=== PATIENT | female | born 1965 | race Caucasian/White ===

== ENCOUNTER 2020-04-07 13:32 | Outpatient (REF) | payer OTHER, SELFPAY ==
--- NOTE | 2020-04-07 13:36 | MM_ITS ---
EXAMINATION: MM SCREENING DIGITAL BREAST TOMOSYNTHESIS, BILATERAL CLINICAL INFORMATION: Screening. Asymptomatic. The lifetime risk of breast cancer based on the Tyrer-Cuzick Model is 8%. COMPARISON: Mammography: April 03, 2019 and studies dating back to July 23, 2014 TECHNIQUE: Digital breast tomosynthesis is performed in both the craniocaudal and mediolateral oblique views along with computer-aided detection (CAD). Synthesized 2D images are generated from the tomosynthesis. FINDINGS: There are scattered areas of fibroglandular density (ACR BI-RADS breast composition Category b). There are no significant masses, abnormal calcifications, or other abnormalities. MM/MM tomosynthesis screening BI IMPRESSION: There are no significant changes from prior study. ASSESSMENT: BI-RADS 1: Negative RECOMMENDATION: Routine annual mammography screening. This patient's information was entered into a reminder system with a target due date for their next mammogram.
== END 2020-04-07 13:33 | disposition home or self-care (01) ==
LOC: HO.MAMMO 13:32
PROVIDERS: PCP Internal Medicine; Visit Provider Internal Medicine
DX: Z12.31 Encounter for screening mammogram for malignant neoplasm of breast (principal)
CPT/HCPCS: 77063; 77067

== ENCOUNTER 2020-05-28 10:41 | Outpatient (REF) | payer OTHER, SELFPAY | END 2020-05-28 10:42 | disposition home or self-care (01) | LOC: HO.HMGCLDS 10:41 | PROVIDERS: PCP Internal Medicine; Visit Provider Internal Medicine | DX: Z20.828 Contact with and (suspected) exposure to other viral communicable diseases (principal) | CPT/HCPCS: C9803; U0003 ==

== ENCOUNTER 2020-07-20 13:51 | Outpatient (REF) | payer OTHER, SELFPAY ==
--- NOTE | 2020-07-20 13:55 | XR_ITS ---
EXAMINATION: XR CHEST CLINICAL INFORMATION: Emphysema COMPARISON: None TECHNIQUE: 2 views of the chest were obtained. FINDINGS: Normal cardiac and mediastinal silhouette. There is mild bronchial wall thickening in bilateral lower lungs. No focal dense consolidation. No effusion, edema or pneumothorax. Multilevel degenerative changes in the spine. XR/XR chest 2V IMPRESSION: Bronchial wall thickening can be seen with a small airway process such as asthma or atypical/viral infections. No confluent consolidation.
== END 2020-07-20 13:52 | disposition home or self-care (01) ==
LOC: HO.HMGCX 13:51
PROVIDERS: PCP Internal Medicine; Visit Provider Internal Medicine
DX: J43.9 Emphysema, unspecified (principal); Z20.822 Contact with and (suspected) exposure to COVID-19
CPT/HCPCS: 36415; 71046; U0003; U0005

== ENCOUNTER → 2020-08-06 14:49 | Outpatient (BNVA) | payer OTHER, SELFPAY | PROVIDERS: PCP Internal Medicine; Visit Provider Nurse Practitioner | DX: K58.2 Mixed irritable bowel syndrome (principal); K21.9 Gastro-esophageal reflux disease without esophagitis; D12.6 Benign neoplasm of colon, unspecified | CPT/HCPCS: Q3014 ==

== ENCOUNTER → 2021-02-01 13:08 | Outpatient (BNVA) | payer OTHER, SELFPAY | PROVIDERS: PCP Internal Medicine; Visit Provider Nurse Practitioner | CPT/HCPCS: Q3014 ==

== ENCOUNTER 2021-02-16 08:16 | Outpatient (REF) | payer OTHER, SELFPAY ==
[2021-02-16 11:22] LABS: MANUAL DIFF FLAG NO
[2021-02-16 11:37] LABS: Appearance Urine CLOUDY; Color Urine YELLOW; Glucose Urine UA NEG (NEG); Leukocyte Esterase Urine NEG (NEG); Nitrite Urine NEG (NEG); PH 5.5 (5.0-8.0); Specific Gravity - Urine >= 1.030 (1.005-1.025); UACC Culture Trigger NO; Urine Blood 1+ (NEG); Urine Ketones NEG (NEG); Urine Protein 1+ MG/DL (NEG-TRACE)
[2021-02-16 11:38] LABS: Basophils Percent Auto 0.2 % (0-2); Eosinophils Absolute Auto 0.2 X10*3/uL (0.0-0.4); Eosinophils Percent Auto 2.5 % (0-4); Hematocrit 41.6 % (37-47); Hemoglobin 13.6 g/dl (12.0-16.0); Imm Gran Abs Auto 0.03 X10*3/uL (0.00-0.03); Imm Gran Pct Auto 0.4 % (0.0-0.4); Lymphocytes Percent Auto 37.7 % (20-40); Mean Corpuscular HGB Conc 32.7 g/dl (31.0-35.0); Mean Corpuscular Hemoglobin 31.7 pg (27.0-33.0); Mean Platelet Volume 9.5 fL (9.4-12.3); Monocytes Absolute Auto 0.6 X10*3/uL (0.1-1.2); Monocytes Percent Auto 7.4 % (2-11); Neutrophils Absolute Auto 4.2 X10*3/uL (2.0-8.3); Neutrophils Percent Auto 51.8 % (45-73); Platelet Count 249 X10*3/uL (160-400); Red Blood Count 4.29 X10*6/uL (4.20-5.50); Red Cell Distribution Width 13.5 % (11.0-16.0)
[2021-02-16 11:47] LABS: Alanine Aminotransferase 41 U/L (0-31); Albumin Level 4.4 g/dL (3.5-5.0); Alkaline Phosphatase 96 U/L (39-117); Anion Gap 10 (12-20); Aspartate Amino Transferase 37 U/L (5-31); Bilirubin Total 0.4 mg/dL (0.0-1.0); Blood Urea Nitrogen 13 mg/dL (9-16); Calcium 9.4 mg/dL (8.4-10.2); Carbon Dioxide 30 mmol/L (22-29); Chloride 101 mmol/L (96-108); Cholesterol 175 mg/dL; Estimated Glomerular Filt Rate > 60; Glucose Fasting 111 mg/dL (60-99); HDL Cholesterol 59 mg/dL; LDL Cholesterol Calculated 65 mg/dl; Potassium 4.4 mmol/L (3.3-5.1); Sodium 137 mmol/L (135-145); Total Protein 7.2 g/dL (6.5-8.0); Triglycerides 256 mg/dL
[2021-02-16 11:59] LABS: Microalbum/Creatinine Ratio Ur 92.5 ug/mg cr
[2021-02-16 12:04] LABS: Amorphous Sediment Urine 3+ /LPF; Bacteria Urine 1+ /LPF; Calcium Oxalate Crystals Urine 2+ /LPF; Squamous Epithelial Cell Urine 2+ /LPF; WBC Urine 0-2 /HPF (0-4)
[2021-02-16 12:07] LABS: TSH reflex Free T4 3.92 uIU/mL (0.32-4.0); Vitamin D 25-OH Total 41.9 ng/mL (>30)
== END 2021-02-16 08:17 | disposition home or self-care (01) ==
LOC: HO.HMGCLDS 08:16
PROVIDERS: PCP Internal Medicine; Visit Provider Internal Medicine
DX: F17.200 Nicotine dependence, unspecified, uncomplicated (principal); H34.8110 Central retinal vein occlusion, right eye, with macular edema; J43.9 Emphysema, unspecified; K21.9 Gastro-esophageal reflux disease without esophagitis; K59.00 Constipation, unspecified; E78.00 Pure hypercholesterolemia, unspecified; E11.9 Type 2 diabetes mellitus without complications; E55.9 Vitamin D deficiency, unspecified
CPT/HCPCS: 36415; 80053; 80061; 81001; 82043; 82306; 84443; 85025

== ENCOUNTER 2021-03-23 12:43 | Outpatient (REF) | payer OTHER, SELFPAY | END 2021-03-23 12:44 | disposition home or self-care (01) | LOC: HO.HMGCLDS 12:43 | PROVIDERS: PCP Internal Medicine; Visit Provider Internal Medicine | DX: Z20.822 Contact with and (suspected) exposure to COVID-19 (principal) | CPT/HCPCS: C9803; U0003; U0005 ==

== ENCOUNTER 2021-06-13 10:39 | Outpatient (REF) | payer OTHER, SELFPAY ==
--- NOTE | ~2021-06-13 | XR_ITS ---
EXAMINATION: XR BILATERAL KNEE SERIES CLINICAL INFORMATION: Bilateral primary osteoarthritis of the knee. COMPARISON: X-rays of the right and left knee April 2015 and March 2015 TECHNIQUE: 4 views of the right knee in the left knee including weight-bearing views FINDINGS: RIGHT KNEE: Medial compartment: Marginal osteophytes without joint space narrowing indicative of mild osteoarthritis unchanged. Lateral compartment: Unremarkable. Patellofemoral compartment: Tiny marginal osteophytes. No definite joint space narrowing. No effusion. LEFT KNEE: Medial compartment: Marginal osteophytes without joint space narrowing unchanged indicative of at least mild osteoarthritis. Lateral compartment: Marginal osteophytes without joint space narrowing indicative of at least [id number]-[id number] osteoarthritis. This is unchanged. Patellofemoral compartment: Marginal osteophytes without joint space narrowing indicative of at least mild osteoarthritis. Small joint effusion. XR/XR knee LT 4V IMPRESSION: Right knee: Osteoarthritis unchanged compared with x-rays in 2015. Left knee: Osteoarthritis with degenerative changes unchanged compared with 2015 x-rays.
--- NOTE | ~2021-06-13 | XR_ITS ---
EXAMINATION: XR BILATERAL KNEE SERIES CLINICAL INFORMATION: Bilateral primary osteoarthritis of the knee. COMPARISON: X-rays of the right and left knee April 2015 and March 2015 TECHNIQUE: 4 views of the right knee in the left knee including weight-bearing views FINDINGS: RIGHT KNEE: Medial compartment: Marginal osteophytes without joint space narrowing indicative of mild osteoarthritis unchanged. Lateral compartment: Unremarkable. Patellofemoral compartment: Tiny marginal osteophytes. No definite joint space narrowing. No effusion. LEFT KNEE: Medial compartment: Marginal osteophytes without joint space narrowing unchanged indicative of at least mild osteoarthritis. Lateral compartment: Marginal osteophytes without joint space narrowing indicative of at least tgzr-[id number]-[id number] osteoarthritis. This is unchanged. Patellofemoral compartment: Marginal osteophytes without joint space narrowing indicative of at least mild osteoarthritis. Small joint effusion. XR/XR knee RT 4V IMPRESSION: Right knee: Osteoarthritis unchanged compared with x-rays in 2015. Left knee: Osteoarthritis with degenerative changes unchanged compared with 2015 x-rays.
[2021-06-13 11:35] LABS: MANUAL DIFF FLAG NO
[2021-06-13 11:38] LABS: Basophils Percent Auto 0.3 % (0-2); Eosinophils Absolute Auto 0.1 X10*3/uL (0.0-0.4); Eosinophils Percent Auto 1.5 % (0-4); Hematocrit 41.1 % (37.0-47.0); Hemoglobin 13.6 g/dl (12.0-16.0); Imm Gran Abs Auto 0.06 X10*3/uL (0.00-0.03); Lymphocytes Absolute Auto 2.2 X10*3/uL (1.2-4.9); Lymphocytes Percent Auto 37.2 % (20-40); Mean Corpuscular HGB Conc 33.1 g/dl (31.0-35.0); Mean Corpuscular Hemoglobin 31.6 pg (27.0-33.0); Mean Corpuscular Volume 95.4 fL (80.0-98.0); Mean Platelet Volume 9.3 fL (9.4-12.3); Monocytes Absolute Auto 0.5 X10*3/uL (0.1-1.2); Monocytes Percent Auto 8.8 % (2-11); Neutrophils Percent Auto 51.2 % (45-73); Platelet Count 259 X10*3/uL (160-400); Red Blood Count 4.31 X10*6/uL (4.20-5.50); Red Cell Distribution Width 14.2 % (11.0-16.0); White Blood Count 5.9 X10*3/uL (4.8-10.8)
[2021-06-13 11:54] LABS: Estimated Average Glucose 111 mg/dL; Hemoglobin A1c % 5.5 %
[2021-06-13 12:40] LABS: Alanine Aminotransferase 32 U/L (0-31); Albumin Level 4.1 g/dL (3.5-5.0); Alkaline Phosphatase 113 U/L (39-117); Anion Gap 14 (12-20); Aspartate Amino Transferase 24 U/L (5-31); Bilirubin Total 0.2 mg/dL (0.0-1.0); Blood Urea Nitrogen 10 mg/dL (9-16); Calcium 9.2 mg/dL (8.4-10.2); Carbon Dioxide 30 mmol/L (22-29); Chloride 101 mmol/L (96-108); Cholesterol 153 mg/dL; Estimated Glomerular Filt Rate > 60; Glucose Fasting 127 mg/dL (60-99); HDL Cholesterol 64 mg/dL; LDL Cholesterol Calculated 65 mg/dl; Potassium 4.5 mmol/L (3.3-5.1); Sodium 140 mmol/L (135-145); Total Protein 7.1 g/dL (6.5-8.0); Triglycerides 122 mg/dL
[2021-06-13 13:00] LABS: TSH reflex Free T4 1.38 uIU/mL (0.32-4.0); Vitamin D 25-OH Total 44.6 ng/mL (>30)
[2021-06-13 14:10] LABS: Appearance Urine CLEAR; Color Urine YELLOW; Glucose Urine UA NEG (NEG); Leukocyte Esterase Urine NEG (NEG); Nitrite Urine NEG (NEG); PH 6.5 (5.0-8.0); Specific Gravity - Urine 1.025 (1.005-1.025); UACC Culture Trigger NO; Urine Blood TRACE (NEG); Urine Ketones NEG (NEG); Urine Protein 1+ MG/DL (NEG-TRACE)
[2021-06-13 14:20] LABS: Bacteria Urine 2+ /LPF; Creatinine Urine 109.44 mg/dL; Squamous Epithelial Cell Urine 3+ /LPF
[2021-06-13 14:21] LABS: RBC Urine 0-2 /HPF (0); WBC Urine 0 /HPF (0-4)
[2021-06-13 14:36] LABS: Microalbum/Creatinine Ratio Ur 437.6 ug/mg cr
== END 2021-06-13 10:40 | disposition home or self-care (01) ==
LOC: HO.HMGCLDS 10:39
PROVIDERS: PCP Internal Medicine; Visit Provider Internal Medicine
DX: M17.0 Bilateral primary osteoarthritis of knee (principal); E78.00 Pure hypercholesterolemia, unspecified; E11.9 Type 2 diabetes mellitus without complications; E55.9 Vitamin D deficiency, unspecified; I10 Essential (primary) hypertension
CPT/HCPCS: 36415; 73564; 80053; 80061; 81001; 81003; 82043; 82306; 83036; 84443; 85025

== ENCOUNTER 2021-06-13 13:04 | Outpatient (REF) | payer OTHER, SELFPAY ==
[2021-06-13 17:01] LABS: Appearance Urine CLEAR; Color Urine STRAW; Glucose Urine UA NEG (NEG); Leukocyte Esterase Urine NEG (NEG); Nitrite Urine NEG (NEG); Specific Gravity - Urine <= 1.005 (1.005-1.025); Urine Blood NEG (NEG); Urine Ketones NEG (NEG); Urine Protein NEG (NEG-TRACE)
[2021-06-13 17:17] LABS: Creatinine Urine 9.43 mg/dL; Microalbum/Creatinine Ratio Ur 169.6 ug/mg cr
[2021-06-13 17:41] LABS: Amphetamine Screen Urine Not Detected (Not Detect); Barbiturates, Urine Not Detected (Not Detect); Benzodiazepines Screen Urine Not Detected (Not Detect); Cannabinoid Screen Urine Not Detected (Not Detect); Cocaine Screen Urine Not Detected (Not Detect); Fentanyl, urine Not Detected (Not Detect); Opiate Screen Urine POSITIVE (Not Detect); Phencyclidine Screen Urine Not Detected (Not Detect)
[2021-06-18 06:49] LABS: Codeine, Ur NEGATIVE; Hydrocodone, Ur NEGATIVE; Hydromorphone, Ur NEGATIVE; Morphine, Ur NEGATIVE; Norhydrocodone, Ur NEGATIVE; Oxycodone, Ur 5050; Oxymorphone, Ur 562
[2021-06-18 06:50] LABS: Alphahydroxytriazolam, GCMS Ur NEGATIVE; Alprazolam, GCMS Urine NEGATIVE; Lorazepam GCMS Urine NEGATIVE; Nordiazepam, GCMS Urine NEGATIVE; Noroxycodone, Ur 3973; Oxazepam, GCMS Urine NEGATIVE; Temazepam, GCMS Urine NEGATIVE
[2021-06-18 06:51] LABS: Alphahydroxymidazolam,GCMS Ur NEGATIVE; Aminoclonazepam, GCMS Urine NEGATIVE; Flurazepam Metabolite,GCMS Ur NEGATIVE
== END 2021-06-13 13:05 | disposition home or self-care (01) ==
LOC: HO.LAB 13:04
PROVIDERS: Visit Provider Internal Medicine
DX: F11.90 Opioid use, unspecified, uncomplicated (principal); E11.9 Type 2 diabetes mellitus without complications
CPT/HCPCS: 80307; 80346; 80364; 80365; 81003; 82043

== ENCOUNTER 2021-08-29 10:55 | Outpatient (REF) | payer OTHER, SELFPAY ==
[2021-08-29 13:54] LABS: MANUAL DIFF FLAG NO
[2021-08-29 13:56] LABS: Basophils Percent Auto 0.3 % (0-2); Eosinophils Absolute Auto 0.1 X10*3/uL (0.0-0.4); Eosinophils Percent Auto 1.1 % (0-4); Hematocrit 43.1 % (37.0-47.0); Hemoglobin 13.8 g/dl (12.0-16.0); Imm Gran Abs Auto 0.06 X10*3/uL (0.00-0.03); Imm Gran Pct Auto 0.5 % (0.0-0.4); Lymphocytes Absolute Auto 1.7 X10*3/uL (1.2-4.9); Lymphocytes Percent Auto 14.2 % (20-40); Mean Corpuscular Hemoglobin 31.9 pg (27.0-33.0); Mean Corpuscular Volume 99.8 fL (80.0-98.0); Monocytes Absolute Auto 0.8 X10*3/uL (0.1-1.2); Monocytes Percent Auto 6.5 % (2-11); Neutrophils Absolute Auto 9.2 x10*3/uL (2.0-8.3); Neutrophils Percent Auto 77.4 % (45-73); Platelet Count 226 X10*3/uL (160-400); Red Blood Count 4.32 X10*6/uL (4.20-5.50); Red Cell Distribution Width 13.6 % (11.0-16.0); White Blood Count 11.9 X10*3/uL (4.8-10.8)
[2021-08-29 14:14] LABS: Alanine Aminotransferase 35 U/L (0-31); Albumin Level 4.2 g/dL (3.5-5.0); Alkaline Phosphatase 98 U/L (39-117); Anion Gap 13 (12-20); Aspartate Amino Transferase 33 U/L (5-31); Bilirubin Total < 0.2 mg/dL (0.0-1.0); Blood Urea Nitrogen 18 mg/dL (9-16); Calcium 9.3 mg/dL (8.4-10.2); Carbon Dioxide 30 mmol/L (22-29); Chloride 102 mmol/L (96-108); Cholesterol 162 mg/dL; Estimated Glomerular Filt Rate > 60; Glucose Fasting 137 mg/dL (60-99); HDL Cholesterol 66 mg/dL; LDL Cholesterol Calculated 65 mg/dl; Potassium 4.4 mmol/L (3.3-5.1); Sodium 141 mmol/L (135-145); Total Protein 7.1 g/dL (6.5-8.0); Triglycerides 157 mg/dL
[2021-08-29 14:35] LABS: Vitamin D 25-OH Total 41.5 ng/mL (>30)
[2021-08-29 14:43] LABS: Estimated Average Glucose 108 mg/dL; Hemoglobin A1c % 5.4 %
== END 2021-08-29 10:56 | disposition home or self-care (01) ==
LOC: HO.HMGCLDS 10:55
PROVIDERS: PCP Internal Medicine; Visit Provider Internal Medicine
DX: G43.909 Migraine, unspecified, not intractable, without status migrainosus (principal); K21.9 Gastro-esophageal reflux disease without esophagitis; E55.9 Vitamin D deficiency, unspecified; E11.9 Type 2 diabetes mellitus without complications; E78.00 Pure hypercholesterolemia, unspecified
CPT/HCPCS: 36415; 80053; 80061; 82306; 83036; 84443; 85025

== ENCOUNTER 2021-09-29 12:45 | Outpatient (REF) | payer OTHER, SELFPAY ==
--- NOTE | ~2021-09-29 | XR_ITS ---
EXAMINATION: X-RAY RIGHT KNEE, X-RAY LEFT KNEE, X-RAY BILATERAL STANDING KNEES CLINICAL INFORMATION: Pain. COMPARISON: Radiograph of both knees dated from 06/13/2021. TECHNIQUE: Lateral, patellar sunrise, and AP standing views of each knee were obtained. FINDINGS: Right knee: No acute fractures or malalignment. Redemonstration of mild joint space narrowing with subchondral sclerosis and osteophytes in the medial compartment, not significantly changed when compared to May 2021. Scattered vascular calcifications. No effusion. Left knee: No acute fractures or malalignment. Redemonstration of tricompartmental moderate degenerative osteoarthritis, more notable in the medial and patellofemoral compartments, not significantly changed since May 2021. Very subtle chondrocalcinosis is also redemonstrated. A small joint effusion is stable. Scattered vascular calcifications. XR/XR knee LT 2V IMPRESSION: No acute fractures or malalignment. Similar degree of bilateral degenerative osteoarthritis when compared to May 2021, more pronounced in the medial and patellofemoral compartments of the left knee. Stable small left joint effusion.
--- NOTE | ~2021-09-29 | XR_ITS ---
EXAMINATION: X-RAY RIGHT KNEE, X-RAY LEFT KNEE, X-RAY BILATERAL STANDING KNEES CLINICAL INFORMATION: Pain. COMPARISON: Radiograph of both knees dated from 06/13/2021. TECHNIQUE: Lateral, patellar sunrise, and AP standing views of each knee were obtained. FINDINGS: Right knee: No acute fractures or malalignment. Redemonstration of mild joint space narrowing with subchondral sclerosis and osteophytes in the medial compartment, not significantly changed when compared to May 2021. Scattered vascular calcifications. No effusion. Left knee: No acute fractures or malalignment. Redemonstration of tricompartmental moderate degenerative osteoarthritis, more notable in the medial and patellofemoral compartments, not significantly changed since May 2021. Very subtle chondrocalcinosis is also redemonstrated. A small joint effusion is stable. Scattered vascular calcifications. XR/XR knee standing BI IMPRESSION: No acute fractures or malalignment. Similar degree of bilateral degenerative osteoarthritis when compared to May 2021, more pronounced in the medial and patellofemoral compartments of the left knee. Stable small left joint effusion.
--- NOTE | ~2021-09-29 | XR_ITS ---
EXAMINATION: X-RAY RIGHT KNEE, X-RAY LEFT KNEE, X-RAY BILATERAL STANDING KNEES CLINICAL INFORMATION: Pain. COMPARISON: Radiograph of both knees dated from 06/13/2021. TECHNIQUE: Lateral, patellar sunrise, and AP standing views of each knee were obtained. FINDINGS: Right knee: No acute fractures or malalignment. Redemonstration of mild joint space narrowing with subchondral sclerosis and osteophytes in the medial compartment, not significantly changed when compared to May 2021. Scattered vascular calcifications. No effusion. Left knee: No acute fractures or malalignment. Redemonstration of tricompartmental moderate degenerative osteoarthritis, more notable in the medial and patellofemoral compartments, not significantly changed since May 2021. Very subtle chondrocalcinosis is also redemonstrated. A small joint effusion is stable. Scattered vascular calcifications. XR/XR knee RT 2V IMPRESSION: No acute fractures or malalignment. Similar degree of bilateral degenerative osteoarthritis when compared to May 2021, more pronounced in the medial and patellofemoral compartments of the left knee. Stable small left joint effusion.
== END 2021-09-29 12:46 | disposition home or self-care (01) ==
LOC: HO.HOSX 12:45
PROVIDERS: Visit Provider Orthopaedic Surgery
DX: M17.12 Unilateral primary osteoarthritis, left knee (principal)
CPT/HCPCS: 73560; 73565; 99202

== ENCOUNTER 2021-12-21 12:59 | Outpatient (REF) | payer OTHER, SELFPAY ==
--- NOTE | ~2021-12-21 | MM_ITS ---
EXAMINATION: MM SCREENING DIGITAL BREAST TOMOSYNTHESIS, BILATERAL CLINICAL INFORMATION: Screening. Asymptomatic. The lifetime risk of breast cancer based on the Tyrer-Cuzick Model is 6%. COMPARISON: Mammography: 04/07/2020, 04/03/2019, 09/11/2017, 11/05/2015 TECHNIQUE: Digital breast tomosynthesis is performed in both the craniocaudal and mediolateral oblique views along with computer-aided detection (CAD). Synthesized 2D images are generated from the tomosynthesis. FINDINGS: There are scattered areas of fibroglandular density (ACR BI-RADS breast composition Category b). There are no significant masses, abnormal calcifications, or other abnormalities. Parenchymal pattern is similar to prior studies. No developing density. Incidental stable small intramammary node again seen posterior 6:30 o'clock left breast. The axilla and skin contours are unremarkable. MM/MM tomosynthesis screening BI IMPRESSION: No mammographic evidence of malignancy. ASSESSMENT: BI-RADS 2: Benign RECOMMENDATION: Routine annual mammography screening. This patient's information was entered into a reminder system with a target due date for their next mammogram.
== END 2021-12-21 13:00 | disposition home or self-care (01) ==
LOC: HO.MAMMO 12:59
PROVIDERS: PCP Internal Medicine; Visit Provider Internal Medicine
DX: Z12.31 Encounter for screening mammogram for malignant neoplasm of breast (principal)
CPT/HCPCS: 77063; 77067

== ENCOUNTER 2022-02-07 07:27 | Outpatient (REF) | payer OTHER, SELFPAY ==
[2022-02-07 11:19] LABS: MANUAL DIFF FLAG NO
[2022-02-07 11:26] LABS: Basophils Percent Auto 0.6 % (0-2); Eosinophils Absolute Auto 0.1 X10*3/uL (0.0-0.4); Eosinophils Percent Auto 1.9 % (0-4); Hematocrit 45.2 % (37.0-47.0); Hemoglobin 15.1 g/dl (12.0-16.0); Imm Gran Abs Auto 0.03 X10*3/uL (0.00-0.03); Imm Gran Pct Auto 0.6 % (0.0-0.4); Lymphocytes Absolute Auto 2.1 X10*3/uL (1.2-4.9); Lymphocytes Percent Auto 39.6 % (20-40); Mean Corpuscular HGB Conc 33.4 g/dl (31.0-35.0); Mean Corpuscular Hemoglobin 32.5 pg (27.0-33.0); Mean Corpuscular Volume 97.2 fL (80.0-98.0); Mean Platelet Volume 9.7 fL (9.4-12.3); Monocytes Absolute Auto 0.4 X10*3/uL (0.1-1.2); Monocytes Percent Auto 7.6 % (2-11); Neutrophils Absolute Auto 2.6 x10*3/uL (2.0-8.3); Neutrophils Percent Auto 49.7 % (45-73); Platelet Count 202 X10*3/uL (160-400); Red Blood Count 4.65 X10*6/uL (4.20-5.50); Red Cell Distribution Width 13.4 % (11.0-16.0); White Blood Count 5.2 X10*3/uL (4.8-10.8)
[2022-02-07 11:50] LABS: Estimated Average Glucose 114 mg/dL; Hemoglobin A1c % 5.6 %
[2022-02-07 12:01] LABS: Appearance Urine Cloudy; Color Urine Yellow; Glucose Urine UA Negative (Negative); Leukocyte Esterase Urine Negative (Negative); Nitrite Urine Negative (Negative); Specific Gravity - Urine 1.015 (1.005-1.025); Urine Blood Negative (Negative); Urine Ketones Negative (Negative); Urine Protein 100 (2+) mg/dL (Neg-Trace)
[2022-02-07 12:08] LABS: Alanine Aminotransferase 34 U/L (0-31); Albumin Level 4.3 g/dL (3.5-5.0); Alkaline Phosphatase 128 U/L (39-117); Anion Gap 14 (12-20); Aspartate Amino Transferase 30 U/L (5-31); Bilirubin Total 0.6 mg/dL (0.0-1.0); Blood Urea Nitrogen 12 mg/dL (9-16); Calcium 9.3 mg/dL (8.4-10.2); Carbon Dioxide 31 mmol/L (22-29); Chloride 98 mmol/L (96-108); Cholesterol 207 mg/dL; Estimated Glomerular Filt Rate > 60; Glucose Fasting 130 mg/dL (60-99); HDL Cholesterol 65 mg/dL; LDL Cholesterol Calculated 75 mg/dl; Potassium 4.3 mmol/L (3.3-5.1); Sodium 139 mmol/L (135-145); Total Protein 7.3 g/dL (6.5-8.0); Triglycerides 336 mg/dL
[2022-02-07 12:12] LABS: Bacteria Urine Trace (None Seen); Hyaline Casts Urine 0-2 /LPF (0-2); RBC Urine 0-2 /HPF (0-2); WBC Urine 0-5 /HPF (0-5)
[2022-02-07 12:29] LABS: TSH reflex Free T4 2.85 uIU/mL (0.32-4.0); Vitamin D 25-OH Total 40.9 ng/mL (>30)
[2022-02-07 12:34] LABS: Creatinine Urine 76.98 mg/dL; Microalbum/Creatinine Ratio Ur 602.7 ug/mg cr
== END 2022-02-07 07:28 | disposition home or self-care (01) ==
LOC: HO.HMGCLDS 07:27
PROVIDERS: PCP Internal Medicine; Visit Provider Internal Medicine
DX: E78.00 Pure hypercholesterolemia, unspecified (principal); E55.9 Vitamin D deficiency, unspecified; E11.9 Type 2 diabetes mellitus without complications; I10 Essential (primary) hypertension
CPT/HCPCS: 36415; 80053; 80061; 81001; 81003; 82043; 82306; 83036; 84443; 85025

== ENCOUNTER 2022-05-16 07:40 | Outpatient (REF) | payer OTHER, SELFPAY ==
[2022-05-16 11:42] LABS: Appearance Urine Turbid; Color Urine Dark Yellow; Glucose Urine UA Negative (Negative); Leukocyte Esterase Urine Trace (Negative); Nitrite Urine Negative (Negative); PH 5.5 (5.0-9.0); Specific Gravity - Urine 1.025 (1.005-1.025); UMIC TRIGGER UACC YES; Urine Blood Trace (Negative); Urine Ketones Trace mg/dL (Negative); Urine Protein 100 (2+) mg/dL (Neg-Trace)
[2022-05-16 12:00] LABS: Bacteria Urine 3+ (None Seen); Calcium Oxalate Crystals Urine Present; RBC Urine 0-2 /HPF (0-2); Squamous Epithelial Cell Urine >20 /HPF (0-2); WBC Urine 0-5 /HPF (0-5)
[2022-05-16 13:24] LABS: Estimated Average Glucose 114 mg/dL; Hemoglobin A1c % 5.6 %
[2022-05-16 15:12] LABS: Alanine Aminotransferase 37 U/L (0-31); Albumin Level 4.7 g/dL (3.5-5.0); Alkaline Phosphatase 114 U/L (39-117); Anion Gap 15 (12-20); Aspartate Amino Transferase 41 U/L (5-31); Bilirubin Total 0.7 mg/dL (0.0-1.0); Blood Urea Nitrogen 17 mg/dL (9-16); Calcium 10.1 mg/dL (8.4-10.2); Carbon Dioxide 31 mmol/L (22-29); Chloride 97 mmol/L (96-108); Cholesterol 220 mg/dL; Estimated Glomerular Filt Rate > 60; Glucose Fasting 121 mg/dL (60-99); HDL Cholesterol 84 mg/dL; LDL Cholesterol Calculated 100 mg/dl; Potassium 4.3 mmol/L (3.3-5.1); Sodium 139 mmol/L (135-145); Total Protein 7.5 g/dL (6.5-8.0); Triglycerides 182 mg/dL
== END 2022-05-16 07:41 | disposition home or self-care (01) ==
LOC: HO.HMGCLDS 07:40
PROVIDERS: PCP Internal Medicine; Visit Provider Internal Medicine
DX: E11.9 Type 2 diabetes mellitus without complications (principal); E78.00 Pure hypercholesterolemia, unspecified
CPT/HCPCS: 36415; 80053; 80061; 81001; 83036

== ENCOUNTER 2022-08-24 07:51 | Outpatient (REF) | payer OTHER, SELFPAY ==
[2022-08-24 11:39] LABS: MANUAL DIFF FLAG NO
[2022-08-24 11:48] LABS: Appearance Urine Clear; Color Urine Yellow; Glucose Urine UA Negative (Negative); Leukocyte Esterase Urine Negative (Negative); Nitrite Urine Negative (Negative); Specific Gravity - Urine 1.025 (1.005-1.025); UMIC TRIGGER UACC YES; Urine Blood Negative (Negative); Urine Ketones Trace mg/dL (Negative); Urine Protein 30 (1+) mg/dL (Neg-Trace)
[2022-08-24 11:54] LABS: Bacteria Urine 1+ (None Seen); Hyaline Casts Urine 0-2 /LPF (0-2); RBC Urine 0-2 /HPF (0-2); WBC Urine 0-5 /HPF (0-5)
[2022-08-24 12:03] LABS: Basophils Percent Auto 0.4 % (0-2); Eosinophils Absolute Auto 0.1 X10*3/uL (0.0-0.4); Eosinophils Percent Auto 1.3 % (0-4); Hematocrit 43.2 % (37.0-47.0); Hemoglobin 14.2 g/dl (12.0-16.0); Imm Gran Abs Auto 0.04 X10*3/uL (0.00-0.03); Imm Gran Pct Auto 0.5 % (0.0-0.4); Lymphocytes Absolute Auto 1.8 X10*3/uL (1.2-4.9); Lymphocytes Percent Auto 21.5 % (20-40); Mean Corpuscular HGB Conc 32.9 g/dl (31.0-35.0); Mean Corpuscular Hemoglobin 32.3 pg (27.0-33.0); Mean Corpuscular Volume 98.4 fL (80.0-98.0); Mean Platelet Volume 9.5 fL (9.4-12.3); Monocytes Absolute Auto 0.5 X10*3/uL (0.1-1.2); Monocytes Percent Auto 6.5 % (2-11); Neutrophils Absolute Auto 5.8 x10*3/uL (2.0-8.3); Neutrophils Percent Auto 69.8 % (45-73); Platelet Count 316 X10*3/uL (160-400); Red Blood Count 4.39 X10*6/uL (4.20-5.50); Red Cell Distribution Width 13.3 % (11.0-16.0); White Blood Count 8.3 X10*3/uL (4.8-10.8)
[2022-08-24 12:24] LABS: Estimated Average Glucose 128 mg/dL; Hemoglobin A1C 212.1027 umol/L; Hemoglobin A1c % 6.1 %
[2022-08-24 12:47] LABS: Creatinine Urine 160.06 mg/dL; Microalbum/Creatinine Ratio Ur 134.3 ug/mg cr
[2022-08-24 15:54] LABS: Alanine Aminotransferase 24 U/L (0-31); Albumin Level 4.1 g/dL (3.5-5.0); Alkaline Phosphatase 105 U/L (39-117); Anion Gap 13 (12-20); Aspartate Amino Transferase 24 U/L (5-31); Bilirubin Total 0.5 mg/dL (0.0-1.0); Blood Urea Nitrogen 14 mg/dL (9-16); Calcium 9.3 mg/dL (8.4-10.2); Carbon Dioxide 32 mmol/L (22-29); Chloride 101 mmol/L (96-108); Cholesterol 174 mg/dL; Estimated Glomerular Filt Rate > 60; Glucose Fasting 128 mg/dL (60-99); HDL Cholesterol 55 mg/dL; LDL Cholesterol Calculated 97 mg/dl; Potassium 4.4 mmol/L (3.3-5.1); Sodium 142 mmol/L (135-145); Total Protein 6.7 g/dL (6.5-8.0); Triglycerides 114 mg/dL
[2022-08-24 16:15] LABS: TSH reflex Free T4 2.05 uIU/mL (0.32-4.0)
[2022-08-26 06:09] LABS: Lyme Abs Screen <0.90 index
== END 2022-08-24 07:52 | disposition home or self-care (01) ==
LOC: HO.HMGCLDS 07:51
PROVIDERS: PCP Internal Medicine; Visit Provider Internal Medicine
DX: I10 Essential (primary) hypertension (principal); M25.50 Pain in unspecified joint; E11.9 Type 2 diabetes mellitus without complications; E55.9 Vitamin D deficiency, unspecified; E78.00 Pure hypercholesterolemia, unspecified; R80.9 Proteinuria, unspecified; R30.0 Dysuria
CPT/HCPCS: 36415; 80053; 80061; 81001; 82043; 82306; 83036; 84443; 85025; 86617; 86618

== ENCOUNTER 2022-11-27 07:26 | Outpatient (REF) | payer OTHER, SELFPAY ==
[2022-11-27 11:27] LABS: Appearance Urine Clear; Color Urine Yellow; Glucose Urine UA Negative (Negative); Leukocyte Esterase Urine Negative (Negative); Nitrite Urine Negative (Negative); PH 6.5 (5.0-9.0); Specific Gravity - Urine 1.015 (1.005-1.025); UMIC TRIGGER UACC YES; Urine Blood Trace (Negative); Urine Ketones Negative (Negative); Urine Protein 30 (1+) mg/dL (Neg-Trace)
[2022-11-27 11:31] LABS: Bacteria Urine None Seen (None Seen); Hyaline Casts Urine 0-2 /LPF (0-2); Squamous Epithelial Cell Urine 0-2 /HPF (0-2); WBC Urine 0-5 /HPF (0-5)
[2022-11-27 11:36] LABS: Basophils Percent Auto 0.6 % (0-2); Eosinophils Absolute Auto 0.1 X10*3/uL (0.0-0.4); Eosinophils Percent Auto 2.3 % (0-4); Hematocrit 40.5 % (37.0-47.0); Imm Gran Abs Auto 0.04 X10*3/uL (0.00-0.03); Imm Gran Pct Auto 0.9 % (0.0-0.4); Lymphocytes Absolute Auto 1.3 X10*3/uL (1.2-4.9); Lymphocytes Percent Auto 28.5 % (20-40); MANUAL DIFF FLAG SCAN; Mean Corpuscular HGB Conc 32.1 g/dl (31.0-35.0); Mean Corpuscular Hemoglobin 32.7 pg (27.0-33.0); Mean Corpuscular Volume 101.8 fL (80.0-98.0); Monocytes Absolute Auto 0.5 X10*3/uL (0.1-1.2); Neutrophils Absolute Auto 2.7 x10*3/uL (2.0-8.3); Neutrophils Percent Auto 57.7 % (45-73); PLT CLUMP 1; Red Blood Count 3.98 X10*6/uL (4.20-5.50); Red Cell Distribution Width 14.2 % (11.0-16.0); SCAN SMEAR FLAG 1
[2022-11-27 11:44] LABS: White Blood Count 4.7 X10*3/uL (4.8-10.8)
[2022-11-27 11:57] LABS: Alanine Aminotransferase 48 U/L (0-31); Albumin Level 4.4 g/dL (3.5-5.0); Alkaline Phosphatase 95 U/L (39-117); Anion Gap 14 (12-20); Aspartate Amino Transferase 58 U/L (5-31); Bilirubin Total 0.5 mg/dL (0.0-1.0); Blood Urea Nitrogen 7 mg/dL (9-16); Calcium 9.5 mg/dL (8.4-10.2); Carbon Dioxide 30 mmol/L (22-29); Chloride 101 mmol/L (96-108); Cholesterol 186 mg/dL; Estimated Glomerular Filt Rate > 60; Glucose Fasting 108 mg/dL (60-99); HDL Cholesterol 89 mg/dL; LDL Cholesterol Calculated 69 mg/dl; Sodium 141 mmol/L (135-145); Total Protein 7.1 g/dL (6.5-8.0); Triglycerides 141 mg/dL
[2022-11-27 12:02] LABS: Mean Platelet Volume 9.5 fL (9.4-12.3); Platelet Count 206 X10*3/uL (160-400)
[2022-11-27 12:03] LABS: SLIDE REVIEW VERIFIED
[2022-11-27 12:07] LABS: HBS Num1 0.06 mIU/mL (0-7.99); HBc Num1 0.14 S/CO (0.00-0.79); HIV AB/AG Nonreactive (Nonreactive); HIV Num 1 0.06 S/CO (0.00-0.99); Hepatitis B Core Antibody Nonreactive (Nonreactive); Hepatitis B Surface Antigen Negative (Negative); Syphilis Screen Nonreactive (Nonreactive); ~HepC Num1 0.77 S/CO (0.00-0.79); ~Hepatitis B Surface Antibody NONREACTIVE (Nonreactive); ~Hepatitis C Antibody Nonreactive (Nonreactive)
[2022-11-27 12:10] LABS: Creatinine Urine 93.81 mg/dL; Protein/Creatinine Ratio, Ur 0.56 (<0.2); Total Protein Urine Random 53 mg/dL (<12)
[2022-11-27 12:12] LABS: Creatinine Urine 95.95 mg/dL; Estimated Average Glucose 111 mg/dL; Hemoglobin A1c % 5.5 %
[2022-11-27 12:16] LABS: TSH reflex Free T4 2.95 uIU/mL (0.32-4.0); Vitamin D 25-OH Total 55.8 ng/mL (>30)
[2022-11-30 15:33] LABS: Kappa Light Chain, Free Serum 33.4 mg/L (3.3-19.4); Kappa/Lambda Lt Ch Free Ratio 1.33 (0.26-1.65); Lambda Light Chain, Free Serum 25.2 mg/L (5.7-26.3)
[2022-11-30 16:24] LABS: IgA 193 mg/dL (47-310); IgG 1082 mg/dL (600-1640); IgM 83 mg/dL (50-300)
[2022-12-07 08:49] LABS: Phospholipase A2 IgG ELISA <4 RU/mL; Phospholipase A2 IgG IFA NEGATIVE (NEGATIVE)
== END 2022-11-27 07:27 | disposition home or self-care (01) ==
LOC: HO.HMGCLDS 07:26
PROVIDERS: PCP Internal Medicine; Visit Provider Internal Medicine
DX: Z11.4 Encounter for screening for human immunodeficiency virus [HIV] (principal); E78.00 Pure hypercholesterolemia, unspecified; Z20.2 Contact with and (suspected) exposure to infections with a predominantly sexual mode of transmission; E11.9 Type 2 diabetes mellitus without complications; I10 Essential (primary) hypertension; E55.9 Vitamin D deficiency, unspecified; R80.9 Proteinuria, unspecified
CPT/HCPCS: 36415; 80053; 80061; 81001; 82043; 82306; 82784; 83036; 83520; 83521; 84156; 84443; 85025; 86255; 86334; 86704; 86706; 86780; 86803; 87340; 87389

== ENCOUNTER 2022-12-07 08:55 | Outpatient (REF) | payer OTHER, SELFPAY ==
--- NOTE | ~2022-12-07 | XR_ITS ---
EXAMINATION: XR LUMBOSACRAL SPINE CLINICAL INFORMATION: Lower back pain. COMPARISON: Lumbar spine radiographs dated 06/09/2016. TECHNIQUE: Three views of the lumbosacral spine. FINDINGS: The lumbar lordosis is maintained. No acute fracture or subluxation. No loss of vertebral body height. Mild multilevel loss of intervertebral disc with small endplate osteophytes as well as multilevel bilateral facet arthropathy. Findings are slightly increased when compared to the prior radiograph. No concerning lytic or blastic osseous lesion. Atherosclerotic calcifications. XR/XR lumbar spine 2-3V IMPRESSION: Mild multilevel degenerative disc disease and bilateral facet arthropathy, slightly increased when compared to the prior radiograph.
== END 2022-12-07 08:56 | disposition home or self-care (01) ==
LOC: HO.HMGCX 08:55
PROVIDERS: PCP Internal Medicine; Visit Provider Internal Medicine
DX: M54.50 Low back pain, unspecified (principal)
CPT/HCPCS: 72100

== ENCOUNTER 2023-03-19 10:29 | Outpatient (REF) | payer OTHER, SELFPAY ==
[2023-03-19 13:28] LABS: MANUAL DIFF FLAG NO
[2023-03-19 13:31] LABS: Appearance Urine Cloudy; Color Urine DK YELLOW; Glucose Urine UA Negative (Negative); Leukocyte Esterase Urine Negative (Negative); Nitrite Urine Positive (Negative); PH 6.5 (5.0-9.0); Specific Gravity - Urine 1.025 (1.005-1.025); UMIC TRIGGER UACC YES; Urine Blood Trace (Negative); Urine Ketones 15 mg/dL (Negative); Urine Protein 300 (3+) mg/dL (Neg-Trace)
[2023-03-19 13:38] LABS: Bacteria Urine 4+ (None Seen); Squamous Epithelial Cell Urine >20 /HPF (0-2); UACC Culture Trigger YES; WBC Urine 0-5 /HPF (0-5)
[2023-03-19 13:40] LABS: Basophils Absolute Auto 0.1 X10*3/uL (0.0-0.2); Eosinophils Absolute Auto 0.1 X10*3/uL (0.0-0.4); Eosinophils Percent Auto 2.7 % (0-4); Hematocrit 43.1 % (37.0-47.0); Hemoglobin 13.7 g/dl (12.0-16.0); Imm Gran Abs Auto 0.01 X10*3/uL (0.00-0.03); Imm Gran Pct Auto 0.2 % (0.0-0.4); Lymphocytes Absolute Auto 2.1 X10*3/uL (1.2-4.9); Lymphocytes Percent Auto 40.6 % (20-40); Mean Corpuscular HGB Conc 31.8 g/dl (31.0-35.0); Mean Corpuscular Hemoglobin 31.5 pg (27.0-33.0); Mean Corpuscular Volume 99.1 fL (80.0-98.0); Monocytes Absolute Auto 0.6 X10*3/uL (0.1-1.2); Monocytes Percent Auto 11.7 % (2-11); Neutrophils Absolute Auto 2.3 x10*3/uL (2.0-8.3); Neutrophils Percent Auto 43.8 % (45-73); Platelet Count 339 X10*3/uL (160-400); Red Blood Count 4.35 X10*6/uL (4.20-5.50); Red Cell Distribution Width 13.2 % (11.0-16.0); White Blood Count 5.2 X10*3/uL (4.8-10.8)
[2023-03-19 14:04] LABS: Estimated Average Glucose 114 mg/dL; Hemoglobin A1c % 5.6 % (<6.0)
[2023-03-19 14:26] LABS: Folate 4.1 ng/mL (> or = 4.0); Vitamin B12 894 pg/mL (200-900)
[2023-03-19 14:28] LABS: Microalbum/Creatinine Ratio Ur 164.8 ug/mg cr (<30)
[2023-03-19 14:35] LABS: Alanine Aminotransferase 35 U/L (0-31); Albumin Level 4.2 g/dL (3.5-5.0); Alkaline Phosphatase 103 U/L (39-117); Anion Gap 17 (12-20); Aspartate Amino Transferase 76 U/L (5-31); Bilirubin Total 0.6 mg/dL (0.0-1.0); Blood Urea Nitrogen 6 mg/dL (9-16); Calcium 10.2 mg/dL (8.4-10.2); Carbon Dioxide 34 mmol/L (22-29); Chloride 94 mmol/L (96-108); Cholesterol 170 mg/dL (<200); Estimated Glomerular Filt Rate > 60; Glucose Fasting 119 mg/dL (60-99); HDL Cholesterol 79 mg/dL (>40); LDL Cholesterol Calculated 79 mg/dL (<100); Potassium 4.4 mmol/L (3.3-5.1); Sodium 141 mmol/L (135-145); Total Protein 7.6 g/dL (6.5-8.0); Triglycerides 62 mg/dL (<150); Vitamin D 25-OH Total 52.5 ng/mL (>30)
[2023-03-19 15:18] LABS: Free T4 (Free Thyroxine) 0.86 ng/dL (0.71-1.85)
== END 2023-03-19 10:30 | disposition home or self-care (01) ==
LOC: HO.HMGCLDS 10:29
PROVIDERS: PCP Internal Medicine; Visit Provider Internal Medicine
DX: E55.9 Vitamin D deficiency, unspecified (principal); E53.8 Deficiency of other specified B group vitamins; E78.00 Pure hypercholesterolemia, unspecified; E11.9 Type 2 diabetes mellitus without complications; I10 Essential (primary) hypertension; R30.0 Dysuria
CPT/HCPCS: 36415; 80053; 80061; 81001; 82043; 82306; 82570; 82607; 82746; 83036; 84439; 84443; 85025; 87086

== ENCOUNTER 2023-04-24 13:28 | Outpatient (AMB) | payer OTHER, SELFPAY ==
--- NOTE | 2023-04-24 13:52 | MHC.PC.OV ---
Vital Signs 04/24/23 13:54 Height 5 ft Weight 179 lb BMI 35.0 BP 140/90 H Blood Pressure Location Lt brachial Position Sitting Pulse 98 Pulse Source Pulse Oximeter Pulse Oximetry (%) 94 Oxygen Delivery Method Room Air Intake Visit Reasons: 3M.F/U-Lumbar/DDD/OA/DM/Hyperlipidemia/COPD Intake Note: Patient is here to follow up on LDDD, OA, DM, COPD, Hyperlipidemia. Medicaid Plan Compliance Director Required: No Aviation Medicine Specialist: Not Required per policy Accompanied by: Self / Same As Patient Allergies hydromorphone [From DILAUDID] Allergy (Severe, Verified 04/24/23 14:25) HALLUCINATION clarithromycin [CLARITHROMYCIN] Allergy (Intermediate, Verified 04/24/23 14:25) ITCHING codeine [CODEINE] Allergy (Intermediate, Verified 04/24/23 14:25) ITCHING morphine [MORPHINE] Allergy (Intermediate, Verified 04/24/23 14:25) ITCHING, HEADACHE Penicillins [PENICILLINS] Allergy (Intermediate, Verified 04/24/23 14:25) NAUSEA & VOMITING, ABD PAIN NSAIDS (Non-Steroidal Anti-Inflamma Allergy (Unknown, Verified 04/24/23 14:25) not tolerated penicillin V Allergy (Unknown, Verified 04/24/23 14:25) Nausea and Vomiting meperidine [From DEMEROL] Adverse Reaction (Intermediate, Verified 04/24/23 14:25) NAUSEA & VOMITING Lactose intolerance Allergy (Unknown, Uncoded 04/24/23 14:25) Unknown Medication List - Last Reconciled 04/24/23 by XENIA Goddard acetaminophen 500 mg PO Q6H PRN albuterol sulfate 90 mcg/actuation 2 puffs PO Q6H PRN aspirin 81 mg PO DAILY 90 days atorvastatin 40 mg PO DAILY 90 days [BED PADS 36 x 36 As directed] blood sugar diagnostic (OneTouch Ultra Test strips) As directed once a day blood-glucose meter (OneTouch Ultra2 Meter) As directed once a day cholecalciferol (vitamin D3) 50 mcg PO DAILY 90 days clonazepam 1 mg PO TID PRN 30 days diphenhydramine HCl (Banophen) 50 mg (2 x 25 mg) PO BEDTIME PRN docusate sodium 100 mg PO DAILY PRN 90 days famotidine 40 mg PO BID 30 days fluticasone propion-salmeterol 250-50 mcg/dose ea inhalation gabapentin 800 mg PO TID 30 days lancets (OneTouch UltraSoft Lancets) As directed once a day lidocaine 5% 1 patch topical DAILY 30 days losartan 25 mg PO DAILY metformin ER 500 mg PO BEDTIME 90 days miscellaneous medical supply 1 ea miscellaneous DAILY naproxen 375 mg PO BID PRN 30 days nicotine 1 patch transdermal DAILY 7 days nystatin 1 appl topical QID PRN ondansetron HCl 4 mg PO Q8H PRN oxycodone 15 mg PO Q6H PRN 28 days sertraline 25 mg PO DAILY sertraline 200 mg PO DAILY umeclidinium-vilanterol 62.5-25 mcg/actuation (Anoro Ellipta) 1 ea inhalation DAILY zolpidem 10 mg PO BEDTIME PRN 30 days Tobacco use date assessed: 04/24/23 Dental Screening Dental Screen Date: 04/24/23 Did you have a dental visit in the last 12 months?: Yes Did you have a dental problem in the last 6 months where you did not have access to dental care?: No Was dental information given to patient?: Patient has dentist HPI 3M.F/U-Lumbar/DDD/OA/DM/Hyperlipidemia/COPD HPI Details Patient is a 58-year-old female who presents today to follow-up on her chronic conditions. Patient of Dr. Cronin. Medical history significant for osteoarthritis of left knee, obesity, smoker, depression, PTSD, anxiety, insomnia, psoriasis, elevated LFTs migraine, pulmonary emphysema, hypercholesterolemia, diabetes, and lumbar degenerative disc disease among others. Patient is compliant with medications. Patient denies chest pain or shortness of breath. Patient reports ongoing low back pains that are worse with prolonged laying down and better with oxycodone as needed. Patient is not interested in pain management referral. Denies any urinary symptoms. 11/2022 XR/XR lumbar spine 2-3V IMPRESSION: Mild multilevel degenerative disc disease and bilateral facet arthropathy, slightly increased when compared to the prior radiograph. PENDING SALE TO [facility] Medical History Bilateral primary osteoarthritis of knee Obesity (BMI 30-39.9) Smoker Depression Post traumatic stress disorder (PTSD) Anxiety Insomnia Psoriasis Constipation GERD without esophagitis Vitamin D deficiency Sleep apnea Osteoarthritis, foot, localized Degenerative arthritis of knee, bilateral Elevated LFTs Central retinal vein occlusion with macular edema of right eye Migraine Lumbosacral spondylosis without myelopathy Pulmonary emphysema Elevated blood pressure reading Pure hypercholesterolemia Diabetes mellitus Lumbar degenerative disc disease Headache Surgical History History of esophagogastroduodenoscopy (EGD) Hx of colonoscopy History of surgery History of total abdominal hysterectomy and bilateral salpingo-oophorectomy History of umbilical hernia repair History of inguinal hernia repair History of left oophorectomy Family History Father Medical history unknown Mother Lung cancer Brother Lung cancer Brother Liver cancer Other Mental health problem Substance abuse Social History Housing: Apartment Alcohol intake: current Alcohol intake frequency: holidays/special occasions only Patient Tobacco Use Status: Current everyday Tobacco user Tobacco use type: Cigarette Cigarette Packs Per Day: 0.5 Cigarettes Per Day: 10 e-Cigarette/Vaping Use: Never Used Second Hand Smoke Exposure: Yes service: No Current occupational status: disabled Cognitive needs: No Hearing needs: No Vision needs: Yes (glasses) Questionnaire Thrive Questionnaire Date Thrive assessed: 12/08/22 HÉCTOR-7 AMB Questionnaire HÉCTOR-7 Date HÉCTOR - 7 assessed: 12/08/22 Source: Developed by Drs. Rommel Desir, Marlene Villalta, Dani Key and colleagues, with an educational juana from [employer]. Review of Systems Const Denies body aches, Denies chills, Denies fever(s) and Denies headache(s) ENT Denies dizziness, Denies otalgia, Denies headache(s), Denies nasal discharge, Denies sinus pain and Denies sore throat Card Denies chest pain, Denies edema, Denies lightheadedness and Denies dyspnea Resp Denies cough, Denies dyspnea and Denies wheezing GI Denies abdominal pain Denies dysuria Musc Reports back pain and Denies myalgias Skin/Breast Denies rash Neuro Denies dizziness and Denies headache(s) Aller/Immun Denies wheezing Physical exam (Primary Care) Vital Signs: Last Vital Signs Pulse 98 04/24/23 13:54 BP 140/90 H 04/24/23 13:54 Pulse Ox 94 04/24/23 13:54 Oxygen Delivery Method Room Air 04/24/23 13:54 BMI result Body Mass Index 35.0 Tobacco/Smoking Status: Tobacco use Status Tobacco use date assessed 04/24/23 04/24/23 14:01 Patient Tobacco Use Status Current everyday Tobacco 04/24/23 14:01 Tobacco use type Cigarette 04/24/23 14:01 e-Cigarette/Vaping Use Never Used 04/24/23 14:01 Thrive Assessment: Date of Thrive Assessment Date Thrive assessed 12/08/22 04/24/23 14:01 Const General: cooperative and no acute distress Orientation/consciousness: patient oriented x3 HENMT Head: Yes normocephalic and Yes atraumatic Mouth: oropharynx normal and moist mucous membranes Throat: Yes posterior oropharynx normal Eyes General: appearance normal, both eyes and all related structures Neck Neck: Yes normal visual inspection, Yes full ROM and Yes no lymphadenopathy Thyroid: Thyroid normal Resp Effort & Inspection: normal respiratory effort and able to speak in complete sentences Auscultation: clear to auscultation bilaterally, no crackles, no rales, no rhonchi and no wheezes Cardio Rate: regular rate Rhythm: regular rhythm Heart sounds: S1 normal heart sound present and S2 normal heart sound present GI Auscultation: normal bowel sounds Skin General skin exam: no rashes or lesions noted Neuro General: patient oriented x3 Gait exam (Neuro): Normal gait present Extrem General: Yes full ROM and No edema Assessment and Plan Assessment & Plan (1) Smoker: Code(s): F17.200 - Nicotine dependence, unspecified, uncomplicated Plan: Patient reports smoking 10 cigarettes per day Encouraged smoking cessation (2) Depression: Code(s): F32.9 - Major depressive disorder, single episode, unspecified Qualifiers: Depression Type: unspecified Qualified Code(s): F32.9 - Major depressive disorder, single episode, unspecified Plan: Continue sertraline Continue to follow-up with psychiatry and therapist (3) Anxiety: Code(s): F41.9 - Anxiety disorder, unspecified Plan: Continue clonazepam 1 mg t.i.d. as needed Continue to follow-up with therapist and psychiatrist (4) Insomnia: Code(s): G47.00 - Insomnia, unspecified Qualifiers: Insomnia type: unspecified Qualified Code(s): G47.00 - Insomnia, unspecified Plan: Reinforced sleep hygiene Continue zolpidem 10 mg at bedtime as needed (5) GERD without esophagitis: Comment: S/P EGD in November 2018 Code(s): K21.9 - Gastro-esophageal reflux disease without esophagitis Plan: Continue famotidine 40 mg b.i.d. Encouraged to avoid GERD trigger foods Do not lay down 2-3 hours after evening meal (6) Elevated LFTs: Code(s): R79.89 - Other specified abnormal findings of blood chemistry Plan: LFTs slightly elevated 03/2023 and previously due to possibly to her weight Encouraged to avoid alcohol and Tylenol containing medications Low-cholesterol diet and weight loss (7) Pure hypercholesterolemia: Code(s): E78.00 - Pure hypercholesterolemia, unspecified Plan: Atorvastatin 40 mg daily Low cholesterol diet (8) Diabetes mellitus: Code(s): E11.9 - Type 2 diabetes mellitus without complications Qualifiers: Diabetes mellitus type: type 2 Diabetes mellitus middle or intermediate school principal insulin use: without skilled nursing use Diabetes mellitus complication status: without complication Qualified Code(s): E11.9 - Type 2 diabetes mellitus without complications Plan: A1c 5.6 03/2023 Continue metformin 500 mg at bedtime Reinforced low-carbohydrate diet (9) Lumbosacral spondylosis without myelopathy: Comment: Used to see Dr. Chen ([facility]) in the past until he retired a few years ago Code(s): M47.817 - Spondylosis without myelopathy or radiculopathy, lumbosacral region Plan: On oxycodone every 6 hours p.r.n.-reports compliance with medication and aware about adverse reactions Also on gabapentin Stable with current medications Declined referral to pain management Medications: Refilled nystatin 1 appl topical QID PRN 60 grams 3RF rash R21 - Rash and other nonspecific skin eruption Coding Level of Care Code Est Pt Level 4 (76036) Diagnoses Smoker F17.200 Depression, unspecified depression type F32.9 Depression Type: unspecified Anxiety F41.9 Insomnia, unspecified type G47.00 Insomnia type: unspecified GERD without esophagitis K21.9 Elevated LFTs R79.89 Pure hypercholesterolemia E78.00 Type 2 diabetes mellitus without complication, without long-term current use of insulin E11.9 Diabetes mellitus type: type 2 Diabetes mellitus middle or intermediate school principal insulin use: without middle or intermediate school principal use Diabetes mellitus complication status: without complication Lumbosacral spondylosis without myelopathy M47.819
[2023-04-24 13:54] VITALS: BP 140/90; PULSE 98; O2SAT 94; BMI 35.0
== END 2023-04-24 16:05 | disposition home or self-care (01) ==
PROVIDERS: PCP Internal Medicine; Visit Provider Nurse Practitioner Family
DX: E11.9 Type 2 diabetes mellitus without complications (principal); F33.9 Major depressive disorder, recurrent, unspecified; F17.210 Nicotine dependence, cigarettes, uncomplicated; G47.00 Insomnia, unspecified; F41.9 Anxiety disorder, unspecified; K21.9 Gastro-esophageal reflux disease without esophagitis; R79.89 Other specified abnormal findings of blood chemistry; E78.00 Pure hypercholesterolemia, unspecified; M47.817 Spondylosis without myelopathy or radiculopathy, lumbosacral region
CPT/HCPCS: 99214

== ENCOUNTER 2023-06-29 09:38 | Outpatient (REF) | payer OTHER, SELFPAY ==
[2023-06-29 13:17] LABS: MANUAL DIFF FLAG NO
[2023-06-29 13:27] LABS: Basophils Percent Auto 0.6 % (0-2); Eosinophils Absolute Auto 0.1 X10*3/uL (0.0-0.4); Eosinophils Percent Auto 0.7 % (0-4); Hematocrit 42.5 % (37.0-47.0); Hemoglobin 13.7 g/dl (12.0-16.0); Imm Gran Abs Auto 0.16 X10*3/uL (0.00-0.03); Imm Gran Pct Auto 2.3 % (0.0-0.4); Lymphocytes Absolute Auto 1.6 X10*3/uL (1.2-4.9); Lymphocytes Percent Auto 22.8 % (20-40); Mean Corpuscular HGB Conc 32.2 g/dl (31.0-35.0); Mean Corpuscular Hemoglobin 31.6 pg (27.0-33.0); Mean Corpuscular Volume 98.2 fL (80.0-98.0); Mean Platelet Volume 9.4 fL (9.4-12.3); Monocytes Absolute Auto 0.5 X10*3/uL (0.1-1.2); Monocytes Percent Auto 6.5 % (2-11); NRBC Pct Auto 0.3 /100WBC (0.0-0.2); Neutrophils Absolute Auto 4.7 x10*3/uL (2.0-8.3); Neutrophils Percent Auto 67.1 % (45-73); Platelet Count 261 X10*3/uL (160-400); Red Blood Count 4.33 X10*6/uL (4.20-5.50); Red Cell Distribution Width 13.9 % (11.0-16.0)
[2023-06-29 13:35] LABS: Appearance Urine Turbid; Color Urine Yellow; Glucose Urine UA 100 mg/dL (Negative); Leukocyte Esterase Urine Negative (Negative); Nitrite Urine Negative (Negative); PH >= 9.0 (5.0-9.0); Specific Gravity - Urine 1.025 (1.005-1.025); UMIC TRIGGER UACC YES; Urine Blood Negative (Negative); Urine Ketones Negative (Negative); Urine Protein 300 (3+) mg/dL (Neg-Trace)
[2023-06-29 13:40] LABS: Bacteria Urine Trace (None Seen); Hyaline Casts Urine 0-2 /LPF (0-2); WBC Urine 0-5 /HPF (0-5)
[2023-06-29 14:04] LABS: Alanine Aminotransferase 19 U/L (0-31); Albumin Level 4.3 g/dL (3.5-5.0); Alkaline Phosphatase 89 U/L (39-117); Anion Gap 15 (12-20); Aspartate Amino Transferase 22 U/L (5-31); Bilirubin Total 0.3 mg/dL (0.0-1.0); Blood Urea Nitrogen 20 mg/dL (9-16); Calcium 9.6 mg/dL (8.4-10.2); Carbon Dioxide 33 mmol/L (22-29); Chloride 95 mmol/L (96-108); Cholesterol 202 mg/dL (<200); Estimated Glomerular Filt Rate > 60; Glucose Fasting 182 mg/dL (60-99); HDL Cholesterol 75 mg/dL (>40); LDL Cholesterol Calculated 111 mg/dL (<100); Sodium 139 mmol/L (135-145); Total Protein 7.8 g/dL (6.5-8.0); Triglycerides 80 mg/dL (<150)
[2023-06-29 14:11] LABS: RBC Urine 0-2 /HPF (0-2)
[2023-06-29 14:12] LABS: Estimated Average Glucose 114 mg/dL; Hemoglobin A1c % 5.6 % (<6.0)
[2023-06-29 14:20] LABS: TSH reflex Free T4 1.14 uIU/mL (0.32-4.0); Vitamin D 25-OH Total 53.3 ng/mL (>30)
[2023-06-29 14:50] LABS: Creatinine Urine 98.73 mg/dL
[2023-06-29 15:04] LABS: Microalbum/Creatinine Ratio Ur 677.6 ug/mg cr (<30)
== END 2023-06-29 09:39 | disposition home or self-care (01) ==
LOC: HO.HMGCLDS 09:38
PROVIDERS: PCP Internal Medicine; Visit Provider Internal Medicine
DX: E78.00 Pure hypercholesterolemia, unspecified (principal); R30.0 Dysuria; E55.9 Vitamin D deficiency, unspecified; E11.9 Type 2 diabetes mellitus without complications; I10 Essential (primary) hypertension
CPT/HCPCS: 36415; 80053; 80061; 81001; 82043; 82306; 82570; 83036; 84443; 85025

== ENCOUNTER 2023-07-02 16:55 | Outpatient (AMB) | payer OTHER, SELFPAY ==
[2023-07-02 16:56] VITALS: BP 160/90; PULSE 110; O2SAT 94; BMI 35.0
--- NOTE | 2023-07-02 16:56 | A.OFFPC_ITS ---
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: No Accompanied by: Self / Same As Patient Allergies hydromorphone [From DILAUDID] Allergy (Severe, Verified 07/02/23 17:27) HALLUCINATION clarithromycin [CLARITHROMYCIN] Allergy (Intermediate, Verified 07/02/23 17:27) ITCHING codeine [CODEINE] Allergy (Intermediate, Verified 07/02/23 17:27) ITCHING morphine [MORPHINE] Allergy (Intermediate, Verified 07/02/23 17:27) ITCHING, HEADACHE Penicillins [PENICILLINS] Allergy (Intermediate, Verified 07/02/23 17:27) NAUSEA & VOMITING, ABD PAIN NSAIDS (Non-Steroidal Anti-Inflamma Allergy (Unknown, Verified 07/02/23 17:27) not tolerated penicillin V Allergy (Unknown, Verified 07/02/23 17:27) Nausea and Vomiting meperidine [From DEMEROL] Adverse Reaction (Intermediate, Verified 07/02/23 17:27) NAUSEA & VOMITING Lactose intolerance Allergy (Unknown, Uncoded 07/02/23 17:27) Unknown Medication List - Last Reconciled 07/02/23 by Robbie Cronin MD acetaminophen 500 mg PO Q6H PRN albuterol sulfate 90 mcg/actuation 2 puffs PO Q6H PRN aspirin 81 mg PO DAILY 90 days atorvastatin 40 mg PO DAILY 90 days [BED PADS 36 x 36 As directed] blood sugar diagnostic ([employer] Ultra Test strips) As directed once a day blood-glucose meter ([employer] Ultra2 Meter) As directed once a day cholecalciferol (vitamin D3) 50 mcg PO DAILY 90 days clonazepam 1 mg PO TID PRN 30 days diphenhydramine HCl (Banophen) 50 mg (2 x 25 mg) PO BEDTIME PRN docusate sodium 100 mg PO DAILY PRN 90 days famotidine 40 mg PO BID 30 days fluticasone propion-salmeterol 250-50 mcg/dose ea inhalation gabapentin 800 mg PO TID 30 days lancets ([employer] UltraSoft Lancets) As directed once a day lidocaine 5% 1 patch topical DAILY 30 days losartan 25 mg PO DAILY metformin ER 500 mg PO BEDTIME 90 days miscellaneous medical supply 1 ea miscellaneous DAILY naproxen 375 mg PO BID PRN 30 days nicotine 1 patch transdermal DAILY 7 days nystatin 1 appl topical QID PRN ondansetron HCl 4 mg PO Q8H PRN oxycodone 15 mg PO Q6H PRN 28 days sertraline 25 mg PO DAILY sertraline 200 mg PO DAILY umeclidinium-vilanterol 62.5-25 mcg/actuation (Anoro Ellipta) 1 ea inhalation DAILY zolpidem 10 mg PO BEDTIME PRN 30 days Tobacco use date assessed: 07/02/23 Dental Screening Dental Screen Date: 07/02/23 Did you have a dental visit in the last 12 months?: No Did you have a dental problem in the last 6 months where you did not have access to dental care?: No Was dental information given to patient?: No HPI LAB WORK F/U HPI Details Patient comes in today for her follow up visit States that she has not been feeling well for several weeks now - continues to experience frequent and recurrent chest tightness and congestion as well as on and shortness of breath, which she states have been going on since last month and that the Z-jonny Abx that we called in for her a couple of weeks ago did not really help much Also relates (+) recurrent cough but states that she can hardly cough up any phlegm Relates feeling fatigued often lately; denies any fever or sore throat She denies any headaches or dizziness Denies any chest pains No nausea/ vomiting, no abdominal pain No change in bowel habits noted Needs a few of her Rx refilled including her pain medications States that her chronic low back pain and joint pains remain adequately controlled on her current meds Had her follow-up labs done a few days ago - to discuss her results [facility] Medical History Bilateral primary osteoarthritis of knee Obesity (BMI 30-39.9) Smoker Depression Post traumatic stress disorder (PTSD) Anxiety Insomnia Psoriasis Constipation GERD without esophagitis Vitamin D deficiency Sleep apnea Osteoarthritis, foot, localized Degenerative arthritis of knee, bilateral Elevated LFTs Central retinal vein occlusion with macular edema of right eye Migraine Lumbosacral spondylosis without myelopathy Pulmonary emphysema Elevated blood pressure reading Pure hypercholesterolemia Diabetes mellitus Lumbar degenerative disc disease Headache Surgical History History of esophagogastroduodenoscopy (EGD) Hx of colonoscopy History of surgery History of total abdominal hysterectomy and bilateral salpingo-oophorectomy History of umbilical hernia repair History of inguinal hernia repair History of left oophorectomy Family History Father Medical history unknown Mother Lung cancer Brother Lung cancer Brother Liver cancer Other Mental health problem Substance abuse Social History Housing: Apartment Alcohol intake: current Alcohol intake frequency: holidays/special occasions only Patient Tobacco Use Status: Current everyday Tobacco user Tobacco use type: Cigarette Cigarette Packs Per Day: 0.5 Cigarettes Per Day: 10 e-Cigarette/Vaping Use: Never Used Second Hand Smoke Exposure: Yes service: No Current occupational status: disabled Cognitive needs: No Hearing needs: No Vision needs: Yes (glasses) Questionnaire PHQ-9 Over the last 2 weeks, how often have you been bothered by any of the following problems? 1. Little interest or pleasure in doing things: several days 2. Feeling down, depressed, or hopeless: several days 3. Trouble falling or staying asleep, or sleeping too much: several days 4. Feeling tired or having little energy: several days 5. Poor appetite or overeating: several days 6. Feeling bad about yourself - or that you are a failure or have let yourself or your family down: several days 7. Trouble concentrating on things, such as reading the newspaper or watching television: not at all 8. Moving or speaking so slowly that other people could have noticed. Or the opposite - being so fidgety or restless that you have been moving around a lot more than usual: not at all 9. Thoughts that you would be better off or of hurting yourself in some way: not at all Total score: 6 Depression Screening Interpretation: Positive Depression Screening Follow-up: Existing condition and In treatment Depression Screening Done: Yes 77690 - PHQ-9 Billing: Yes Source: Developed by Drs. Rommel Desir, Marlene Villalta, Dani Key and colleagues, with an educational juana from [employer]. Thrive Questionnaire Date Thrive assessed: 07/02/23 I am a: Patient What is your living situation today?: I have a steady place to live Within the past 12 months, did the food you bought not last and you didn't have the money to get more?: Never true Within the past 12 months, did you worry whether your food would run out before you got money to buy more?: Never true Do you have trouble paying for medicines?: No Do you have trouble getting transportation to medical appointments?: No Do you have trouble paying your heating and electricity bill?: No Do you have trouble taking care of your child, family member or friend?: No Do you have trouble with day-to-day activities such as bathing, preparing meals, shopping, managing finances, etc.?: No Are you currently unemployed and looking for a job?: No Are you interested in more education?: No Please select the resources that you would like help with: None Currently or been in a relationship where the following occur: no concerns reported AUDIT C Alcohol Use Questionnaire (AUDIT-C) 1. How often do you have a drink containing alcohol?: Never 3. How often do you have six or more drinks on one occasion?: Never Total Score: 0 Score Reviewed/Action Taken: Yes HÉCTOR-7 AMB Questionnaire HÉCTOR-7 Date HÉCTOR - 7 assessed: 07/02/23 Feeling nervous, anxious, or on edge: 0 = Not at all Not being able to stop or control worryin = Not at all Worrying too much about different things: 0 = Not at all Trouble relaxin = Not at all Being so restless that it is hard to sit still: 0 = Not at all Becoming easily annoyed or irritable: 0 = Not at all Feeling afraid as if something awful might happen: 0 = Not at all Total HÉCTOR-7 score (0-4 normal; 5-9 mild; 10-14 moderate; 15-21 severe): 0 Source: Developed by Drs. Rommel Desir, Dani Romero and colleagues, with an educational juana from [employer]. Review of Systems Const Denies chills, Reports fatigue, Denies fever(s), Denies headache(s) and Reports weakness ENT Denies dysphagia, Denies dizziness, Denies headache(s), Denies odynophagia and Denies sore throat Card Denies chest pain, Denies palpitations, Reports dyspnea (on and off lately) and Reports dyspnea on exertion Resp Reports chest congestion (chest feels tight often lately), Reports cough (recurrent, non-productive), Reports dyspnea (on and off lately), Reports dyspnea on exertion and Reports wheezing (at times) GI Denies abdominal pain, Denies constipation, Denies dysphagia, Denies diarrhea, Denies nausea, Denies odynophagia and Denies vomiting Denies difficulty voiding, Denies dysuria and Denies urinary urgency Musc Details: increased pain over her right big toe Reports back pain (over the lumbar spine - chronic - increasing lately) and Reports arthralgias (over both knees-worse in the left knee) Skin/Breast Denies rash Neuro Denies dizziness, Denies headache(s) and Reports weakness Psych Denies anxiety Endo Reports fatigue and Denies palpitations Aller/Immun Reports wheezing (at times) Physical exam (Primary Care) Vital Signs: Last Vital Signs Pulse 110 H 07/02/23 16:56 BP 160/90 H 07/02/23 16:56 Pulse Ox 94 07/02/23 16:56 Oxygen Delivery Method Room Air 07/02/23 16:56 BMI result Body Mass Index 35.0 Tobacco/Smoking Status: Tobacco use Status Tobacco use date assessed 07/02/23 07/02/23 16:58 Patient Tobacco Use Status Current everyday Tobacco 07/02/23 16:58 Tobacco use type Cigarette 07/02/23 16:58 e-Cigarette/Vaping Use Never Used 07/02/23 16:58 PHQ-9: PHQ-9 Score PHQ-9: Total score 6 07/02/23 17:29 Depression Screening Interpretation: Positive Depression Screening Follow-up: Existing condition and In treatment Thrive Assessment: Date of Thrive Assessment Date Thrive assessed 07/02/23 07/02/23 16:58 Currently or been in a relationship where the following occur: no concerns reported Const General: no acute distress, alert and tired appearing HENMT Ears: TM's normal bilaterally and EAC's normal Throat: Yes posterior oropharynx normal and Yes tonsils normal Resp Auscultation: no crackles, no rales, rhonchi (scattered) throughout, wheezes (faint) expiratory wheezes (at times) and throughout, diminished lung sounds bilateral and bronchial breath sounds bilateral Cardio Rate: regular rate Rhythm: regular rhythm Heart sounds: no murmurs GI Palpation (GI): Soft to palpation and nontender Auscultation: normal bowel sounds Back/Spine/Pelvis Thoracic/Lumbar Spine: lumbar spinal tenderness Skin Rashes: no rashes Extrem General: Yes no clubbing, cyanosis or edema Right lower extremity: knee Details: tenderness and crepitus; no swelling and foot Details: tenderness Location: of the great toe Location: at the MTP joint and along the entire digit Left lower extremity: knee Details: tenderness and crepitus; no swelling Office Procedures Flu Questionnaire Does the patient have a severe egg allergy?: No Does the patient have severe life threatening allergies?: No Does the patient have a fever or illness today?: No Has the patient ever had Guillain-Custar Syndrome?: No Has the patient ever had any past reaction to a flu shot?: No Immunizations flu vacc [id number] 6mos up(PF) 60 mcg(15 mcgx4)/0.5 mL IM syringe Performing Provider: Robbie Cronin MD Performing Location: [facility] Administered by: Franky Escalante on 07/02/23 17:15 Dose Route Admin Location Dispensed Lot Number Expiration Date NDC Secy 0.5 mL IM Left Deltoid 0.5 mL [id number] 12/16/23 71397-830-25 Tocagen VIS Given Date VIS Provided VIS Publication Date 07/02/23 Single Vaccine 21 Eligibility Eligibility Date Funding Source Not [facility] Eligible 07/02/23 Private Results Reviewed Results Reviewed: Laboratory Tests 06/29/23 06/29/23 06/29/23 09:43 09:43 09:43 WBC 7.0 Hgb 13.7 Hct 42.5 Plt Count 261 Sodium 139 Potassium 4.0 Creatinine 0.59 Estimated GFR > 60 Fasting Glucose 182 H Hemoglobin A1c % 5.6 Calcium 9.6 AST 22 ALT 19 Triglycerides 80 Cholesterol 202 H LDL Cholesterol, Calc 111 H HDL Cholesterol 75 25-OH Vitamin D Total 53.3 TSH 1.14 Ur Specific [place] Urine Protein Urine Glucose (UA) Urine Blood Urine Nitrite Ur Leukocyte Esterase Microalb/Creat Ratio 06/29/23 06/29/23 06/29/23 09:50 09:50 09:50 WBC Hgb Hct Plt Count Sodium Potassium Creatinine Estimated GFR Fasting Glucose Hemoglobin A1c % Calcium AST ALT Triglycerides Cholesterol LDL Cholesterol, Calc HDL Cholesterol 25-OH Vitamin D Total TSH Ur Specific [place] 1.025 Urine Protein 300 (3+) H Urine Glucose (UA) 100 H Urine Blood Negative Urine Nitrite Negative Ur Leukocyte Esterase Negative Microalb/Creat Ratio 677.6 H Assessment and Plan Assessment & Plan (1) COPD exacerbation: Code(s): J44.1 - Chronic obstructive pulmonary disease with (acute) exacerbation Plan: Will send patient for chest x-rays for further evaluation Will start her empirically on oral Doxycycline 100 mg BID x 10 days and again on oral Prednisone taper Continue Incruse Ellipta 62.5 mcg 1 inhalation QD, Advair Diskus 250-50 mcg 1 inhalation BID and Ventolin HFA 1 to 2 puffs 4 times a day as needed Follow up with pulmonary (Dr. Vee) at [facility] as scheduled (2) Pure hypercholesterolemia: Code(s): E78.00 - Pure hypercholesterolemia, unspecified Plan: Results of her labs done a few days ago reviewed and discussed with patient - she is cautioned that her cholesterol levels, especially her LDL cholesterol, have increased from previous Reinforced low cholesterol diet Continue Atorvastatin 40 mg QD - patient admits to skipping her cholesterol medicine often for the past few weeks as she has not been feeling good lately (3) Diabetes mellitus: Code(s): E11.9 - Type 2 diabetes mellitus without complications Qualifiers: Diabetes mellitus type: type 2 Diabetes mellitus skilled nursing insulin use: without 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 Diabetes mellitus complication status: without complication Qualified Code(s): E11.9 - Type 2 diabetes mellitus without complications Plan: HgbA1c was at 5.6% on her labs done a few days ago (was at 5.5% previously) - goal is <7.0% Reinforced diabetic diet Continue Metformin ER 500 mg QD Follow up with diabetic grease renderer at [facility] as scheduled (4) Migraine: Code(s): G43.909 - Migraine, unspecified, not intractable, without status migrainosus Qualifiers: Migraine type: unspecified Status migrainosus presence: without status migrainosus Intractability: not intractable Qualified Code(s): G43.909 - Migraine, unspecified, not intractable, without status migrainosus Plan: Stable Continue Fioricet 50-325-40 mg 3 to 4 times a day as needed (5) Central retinal vein occlusion with macular edema of right eye: Comment: Received VEGF receptor inhibitor therapy (injections) with Avastin from Dr. Myers in [place] Hypercoagulable work ups done came back mostly normal; was also checked for factor V Leiden mutation and prothrombin gene mutation by hematology - both came back negative - recommended only low dose aspirin therapy with no further intervention or work ups at this time Code(s): H34.8110 - Central retinal vein occlusion, right eye, with macular edema Plan: Continue Aspirin 81 mg QD Follow up with ophthalmology as scheduled (6) Elevated blood pressure reading: Code(s): R03.0 - Elevated blood-pressure reading, without diagnosis of hypertension Plan: She is advised that her current elevated blood pressure may be likely due to the fact that she is not feeling well Reinforced low sodium diet Will have patient continue to monitor her blood pressure regularly for now She is on Losartan 25 mg QD (started by nephrology last year) but this is more for her albuminuria although advised that it should also help with his BP and she is to continue on the Rx (7) Albuminuria: Code(s): R80.9 - Proteinuria, unspecified Plan: Advised that albuminuria has increased significantly on her recent labs Patient was seen by nephrology (Dr. Kohli) back on 08/21/22 and started then on Losartan 25 mg QD - Rx refilled Follow up with nephrology as scheduled (8) Lumbosacral spondylosis without myelopathy: Comment: Used to see Dr. Chen ([facility]) in the past until he retired a few years ago Code(s): M47.817 - Spondylosis without myelopathy or radiculopathy, lumbosacral region Plan: Reinforced activity and weight-lifting restrictions Continue Gabapentin 800 mg TID and Oxycodone 15 mg every 6 hours as needed for pain Was sent for repeat lumbar spine x-rays for further evaluation of her increasing low back pain last year (has not had any x-rays or imaging studies done since 2015) - x-rays done in November 2022 revealed mild multilevel degenerative disc disease and bilateral facet arthropathy, slightly increased when compared to the prior radiograph (9) Bilateral primary osteoarthritis of knee: Code(s): M17.0 - Bilateral primary osteoarthritis of knee Plan: X-rays done back in 2014 revealed (+) OA changes in both knees Repeat x-rays of both knees in May 2021 showed (+) osteoarthritis in both knees that are mostly unchanged from previous although the arthritis is slightly worse in the left knee Has been seen by orthopedics and as patient failed to respond to cortisone injections, has been recommended to undergo total left knee arthroplasty by orthopedics - she is still debating on whether to go ahead with surgery or not Follow up with orthopedics as scheduled (10) Hallux rigidus of right foot: Code(s): M20.21 - Hallux rigidus, right foot Plan: Has been recommended surgery (fusion) of her right big toe by podiatry but has been strongly advised to quit smoking before going for surgery - patient remains very hesitant about going for surgery of her right foot Follow up with podiatry as scheduled (11) GERD without esophagitis: Comment: S/P EGD in November 2018 Code(s): K21.9 - Gastro-esophageal reflux disease without esophagitis Plan: Dietary restrictions reinforced Continue Famotidine 40 mg Q HS and Esomeprazole 40 mg QD Follow up with GI as scheduled (12) Elevated LFTs: Code(s): R79.89 - Other specified abnormal findings of blood chemistry Plan: Her LFTs have improved again on her recent labs - are most likely related to her weight Will continue to monitor her LFTs regularly (13) Vitamin D deficiency: Code(s): E55.9 - Vitamin D deficiency, unspecified Plan: Continue Vitamin D3 2000 uinits QD (14) Psoriasis: Comment: Was started on Otezla a few months ago but could not tolerate the Rx - had chest pains and increased low back pain Code(s): L40.9 - Psoriasis, unspecified Plan: Patient could not tolerate Otezla Follow up with dermatology as scheduled (15) Constipation: Code(s): K59.00 - Constipation, unspecified Qualifiers: Constipation type: unspecified constipation type Qualified Code(s): K59.00 - Constipation, unspecified Plan: Most likely opioid-induced Encouraged increased oral fluid and dietary fiber Continue Docusate 100 mg QD PRN (16) Insomnia: Code(s): G47.00 - Insomnia, unspecified Qualifiers: Insomnia type: unspecified Qualified Code(s): G47.00 - Insomnia, unspecified Plan: Sleep hygiene reinforced Continue Zolpidem 10 mg Q HS PRN (17) Anxiety: Code(s): F41.9 - Anxiety disorder, unspecified Plan: Continue Clonazepam 1 mg TID PRN (18) Post traumatic stress disorder (PTSD): Code(s): F43.10 - Post-traumatic stress disorder, unspecified Plan: Continue Sertraline at 225 mg (2 x 100 mg + 25 mg) daily - Rx is being managed by psychiatry (19) Depression: Code(s): F32.9 - Major depressive disorder, single episode, unspecified Qualifiers: Depression Type: unspecified Qualified Code(s): F32.9 - Major depressive disorder, single episode, unspecified Plan: Follow up with psychiatry as scheduled (20) Smoker: Code(s): F17.200 - Nicotine dependence, unspecified, uncomplicated Plan: Counseled again on smoking cessation Continue Nicotine patches to help her quit smoking in preparation for her proposed surgeries (21) Obesity (BMI 30-39.9): Code(s): E66.9 - Obesity, unspecified Plan: Reinforced diet/exercise as tolerated/lose weight Plan Follow up in 1 month for her COPD exacerbation and uncontrolled BP Orders: Orders Influenza [id number] Immunization 07/02/23 Z23 - Encounter for immunization XR chest 2V 07/02/23 J44.1 - Chronic obstructive pulmonary disease with (acute) exacerbation Medications: New prednisone 4 tablets x 2 days, then 3 tablets x 2 days, then 2 tablets x 2 days, then 1 tablet x 2 days 8 days 20 tabs 0RF J45.901 - Unspecified asthma with (acute) exacerbation, M25.50 - Pain in unspecified joint doxycycline monohydrate 100 mg PO BID 10 days 20 caps 0RF Changed From losartan 25 mg PO DAILY To losartan 25 mg PO DAILY 90 days 90 tabs 1RF Refilled aspirin 81 mg PO DAILY 90 days 90 tabs 3RF H34.8110 - Central retinal vein occlusion, right eye, with macular edema atorvastatin 40 mg PO DAILY 90 days 90 tabs 1RF E78.00 - Pure hypercholesterolemia, unspecified famotidine 40 mg PO BID 30 days 60 tabs 6RF heartburn K21.9 - Gastro-esophageal reflux disease without esophagitis Coding Level of Care Code Est Pt Level 4 (72131) Diagnoses COPD exacerbation J44.1 Pure hypercholesterolemia E78.00 Type 2 diabetes mellitus without complication, without long-term current use of insulin E11.9 Diabetes mellitus type: type 2 Diabetes mellitus local 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 insulin use: without skilled nursing use Diabetes mellitus complication status: without complication Migraine without status migrainosus, not intractable, unspecified migraine type G43.909 Migraine type: unspecified Status migrainosus presence: without status migrainosus Intractability: not intractable Central retinal vein occlusion with macular edema of right eye H34.8110 Elevated blood pressure reading R03.0 Albuminuria R80.9 Lumbosacral spondylosis without myelopathy M47.817 Bilateral primary osteoarthritis of knee M17.0 Hallux rigidus of right foot M20.21 GERD without esophagitis K21.9 Elevated LFTs R79.89 Vitamin D deficiency E55.9 Psoriasis L40.9 Constipation, unspecified constipation type K59.00 Constipation type: unspecified constipation type Insomnia, unspecified type G47.00 Insomnia type: unspecified Anxiety F41.9 Post traumatic stress disorder (PTSD) F43.10 Depression, unspecified depression type F32.9 Depression Type: unspecified Smoker F17.200 Obesity (BMI 30-39.9) E66.9
== END 2023-07-02 17:41 | disposition home or self-care (01) ==
LOC: HO.HMGH 16:55
PROVIDERS: PCP Internal Medicine; Visit Provider Internal Medicine
DX: Z23 Encounter for immunization (principal)
CPT/HCPCS: 90471; 90686; 99214

== ENCOUNTER 2023-11-03 09:28 | Outpatient (REF) | payer OTHER, SELFPAY ==
[2023-11-03 09:39] LABS: MANUAL DIFF FLAG NO
[2023-11-03 10:26] LABS: Basophils Percent Auto 0.6 % (0-2); Eosinophils Absolute Auto 0.1 X10*3/uL (0.0-0.4); Eosinophils Percent Auto 2.8 % (0-4); Hematocrit 37.9 % (37.0-47.0); Hemoglobin 12.7 g/dl (12.0-16.0); Imm Gran Abs Auto 0.03 X10*3/uL (0.00-0.03); Imm Gran Pct Auto 0.6 % (0.0-0.4); Lymphocytes Absolute Auto 2.3 X10*3/uL (1.2-4.9); Lymphocytes Percent Auto 48.4 % (20-40); Mean Corpuscular HGB Conc 33.5 g/dl (31.0-35.0); Mean Corpuscular Hemoglobin 32.2 pg (27.0-33.0); Mean Corpuscular Volume 96.2 fL (80.0-98.0); Mean Platelet Volume 8.6 fL (9.4-12.3); Monocytes Absolute Auto 0.4 X10*3/uL (0.1-1.2); Neutrophils Absolute Auto 1.8 x10*3/uL (2.0-8.3); Neutrophils Percent Auto 38.6 % (45-73); Platelet Count 223 X10*3/uL (160-400); Red Blood Count 3.94 X10*6/uL (4.20-5.50); Red Cell Distribution Width 14.3 % (11.0-16.0); White Blood Count 4.7 X10*3/uL (4.8-10.8)
[2023-11-03 10:36] LABS: Estimated Average Glucose 120 mg/dL; Hemoglobin A1c % 5.8 % (<6.0)
[2023-11-03 10:51] LABS: Appearance Urine Cloudy; Color Urine Yellow; Glucose Urine UA Negative (Negative); Leukocyte Esterase Urine Negative (Negative); Nitrite Urine Negative (Negative); Specific Gravity - Urine 1.015 (1.005-1.025); UMIC TRIGGER UACC YES; Urine Blood Negative (Negative); Urine Ketones Negative (Negative); Urine Protein 100 (2+) mg/dL (Neg-Trace)
[2023-11-03 10:56] LABS: Bacteria Urine 1+ (None Seen); Hyaline Casts Urine 0-2 /LPF (0-2); RBC Urine 0-2 /HPF (0-2); WBC Urine 0-5 /HPF (0-5)
[2023-11-03 11:12] LABS: Alanine Aminotransferase 23 U/L (0-31); Albumin Level 4.2 g/dL (3.5-5.0); Alkaline Phosphatase 107 U/L (39-117); Anion Gap 16 (12-20); Aspartate Amino Transferase 30 U/L (5-31); Bilirubin Total 0.3 mg/dL (0.0-1.0); Blood Urea Nitrogen 10 mg/dL (9-16); Calcium 8.9 mg/dL (8.4-10.2); Carbon Dioxide 31 mmol/L (22-29); Chloride 98 mmol/L (96-108); Cholesterol 174 mg/dL (<200); Estimated Glomerular Filt Rate > 60; Glucose Fasting 104 mg/dL (60-99); HDL Cholesterol 76 mg/dL (>40); LDL Cholesterol Calculated 73 mg/dL (<100); Potassium 3.5 mmol/L (3.3-5.1); Sodium 141 mmol/L (135-145); Total Protein 7.4 g/dL (6.5-8.0); Triglycerides 129 mg/dL (<150)
[2023-11-03 11:32] LABS: TSH reflex Free T4 2.22 uIU/mL (0.32-4.0); Vitamin D 25-OH Total 54.5 ng/mL (>30)
[2023-11-03 12:00] LABS: Creatinine Urine 87.59 mg/dL; Microalbum/Creatinine Ratio Ur 449.8 ug/mg cr (<30)
== END 2023-11-03 09:29 | disposition home or self-care (01) ==
LOC: HO.LAB 09:28
PROVIDERS: PCP Internal Medicine; Visit Provider Internal Medicine
DX: E78.00 Pure hypercholesterolemia, unspecified (principal); E11.9 Type 2 diabetes mellitus without complications; D64.9 Anemia, unspecified; E55.9 Vitamin D deficiency, unspecified
CPT/HCPCS: 36415; 80053; 80061; 81001; 82043; 82306; 82570; 83036; 84443; 85025

== ENCOUNTER 2023-11-05 15:37 | Outpatient (AMB) | payer OTHER, SELFPAY ==
--- NOTE | 2023-11-05 15:39 | MHC.PC.OV ---
Vital Signs 11/05/23 15:40 11/05/23 15:46 Height 5 ft Weight 180 lb 4 oz BMI 35.2 BP 140/90 H 138/90 H Blood Pressure Location Lt brachial Lt brachial Position Sitting Sitting Pulse 106 H Pulse Source Pulse Oximeter Pulse Oximetry (%) 96 Oxygen Delivery Method Room Air Intake Visit Reasons: COPD exacerbation, uncontrolled BP Intake Note: Patient is here to follow up on COPD, Uncontrolled BP. Barrel Lathe Operator Inside Required: No Cork Insulator Helper: Present Accompanied by: Sister Allergies hydromorphone [From DILAUDID] Allergy (Severe, Verified 11/05/23 16:26) HALLUCINATION clarithromycin [CLARITHROMYCIN] Allergy (Intermediate, Verified 11/05/23 16:26) ITCHING codeine [CODEINE] Allergy (Intermediate, Verified 11/05/23 16:26) ITCHING morphine [MORPHINE] Allergy (Intermediate, Verified 11/05/23 16:26) ITCHING, HEADACHE Penicillins [PENICILLINS] Allergy (Intermediate, Verified 11/05/23 16:26) NAUSEA & VOMITING, ABD PAIN NSAIDS (Non-Steroidal Anti-Inflamma Allergy (Unknown, Verified 11/05/23 16:26) not tolerated penicillin V Allergy (Unknown, Verified 11/05/23 16:26) Nausea and Vomiting meperidine [From DEMEROL] Adverse Reaction (Intermediate, Verified 11/05/23 16:26) NAUSEA & VOMITING Lactose intolerance Allergy (Unknown, Uncoded 11/05/23 16:26) Unknown Medication List - Last Reconciled 11/05/23 by Robbie Cronin MD acetaminophen 500 mg PO Q6H PRN albuterol sulfate 90 mcg/actuation 2 puffs PO Q6H PRN aspirin 81 mg PO DAILY 90 days atorvastatin 40 mg PO DAILY 90 days [BED PADS 36 x 36 As directed] blood sugar diagnostic (OneTouch Ultra Test strips) As directed once a day blood-glucose meter (OneTouch Ultra2 Meter) As directed once a day cholecalciferol (vitamin D3) 50 mcg PO DAILY 90 days clonazepam 1 mg PO TID PRN 30 days diphenhydramine HCl (Banophen) 50 mg (2 x 25 mg) PO BEDTIME PRN docusate sodium 100 mg PO DAILY PRN 90 days famotidine 40 mg PO BID 30 days fluticasone propion-salmeterol 250-50 mcg/dose ea inhalation gabapentin 800 mg PO TID 30 days lancets (OneTouch UltraSoft Lancets) As directed once a day lidocaine 5% 1 patch topical DAILY 30 days losartan 25 mg PO DAILY 90 days metformin ER 500 mg PO BEDTIME 90 days miscellaneous medical supply 1 ea miscellaneous DAILY naproxen 375 mg PO BID PRN 30 days nystatin 1 appl topical QID PRN ondansetron HCl 4 mg PO Q8H PRN oxycodone 15 mg PO Q6H PRN 28 days sertraline 25 mg PO DAILY sertraline 200 mg PO DAILY umeclidinium-vilanterol 62.5-25 mcg/actuation (Anoro Ellipta) 1 ea inhalation DAILY zolpidem 10 mg PO BEDTIME PRN 30 days Tobacco use date assessed: 11/05/23 Dental Screening Dental Screen Date: 07/02/23 HPI COPD exacerbation, uncontrolled BP HPI Details Patient comes in today for her follow up visit States that she has been experiencing recurrent cough and congestion again lately Admits that she is still smoking and states that she is actively trying to quit but it is not easy States that she continues to use her inhalers regularly as prescribed and has her nebulizer to use when needed She denies any fever or sore throat Denies any headaches or dizziness Denies any chest pains, no increased shortness of breath No nausea /vomiting, no abdominal pain No change in bowel habits noted States that her chronic pains remain adequately controlled on her current medications Needs a few of her Rx refilled Had her follow-up labs done a couple of days ago - to discuss her results [facility] Medical History (Updated 11/15/23 @ 00:05 by Robbie Cronin MD) COPD (chronic obstructive pulmonary disease) Bilateral primary osteoarthritis of knee Obesity (BMI 30-39.9) Smoker Depression Post traumatic stress disorder (PTSD) Anxiety Insomnia Psoriasis Constipation GERD without esophagitis Vitamin D deficiency Sleep apnea Osteoarthritis, foot, localized Degenerative arthritis of knee, bilateral Elevated LFTs Central retinal vein occlusion with macular edema of right eye Migraine Lumbosacral spondylosis without myelopathy Pulmonary emphysema Elevated blood pressure reading Pure hypercholesterolemia Diabetes mellitus Lumbar degenerative disc disease Headache Surgical History History of esophagogastroduodenoscopy (EGD) Hx of colonoscopy History of surgery History of total abdominal hysterectomy and bilateral salpingo-oophorectomy History of umbilical hernia repair History of inguinal hernia repair History of left oophorectomy Family History Father Medical history unknown Mother Lung cancer Brother Lung cancer Brother Liver cancer Other Mental health problem Substance abuse Social History Housing: Apartment Alcohol intake: current Alcohol intake frequency: holidays/special occasions only Patient Tobacco Use Status: Current everyday Tobacco user Tobacco use type: Cigarette Cigarette Packs Per Day: 0.5 Cigarettes Per Day: 10 e-Cigarette/Vaping Use: Never Used Second Hand Smoke Exposure: Yes service: No Current occupational status: disabled Cognitive needs: No Hearing needs: No Vision needs: Yes (glasses) Questionnaire Thrive Questionnaire Date Thrive assessed: 07/02/23 HÉCTOR-7 AMB Questionnaire HÉCTOR-7 Date HÉCTOR - 7 assessed: 07/02/23 Source: Developed by Drs. Rommel Desir, Marlene Villalta, Dani Key and colleagues, with an educational juana from [employer]. Review of Systems Const Denies chills, Reports fatigue, Denies fever(s) and Denies headache(s) ENT Denies dysphagia, Denies dizziness, Denies headache(s), Denies odynophagia and Denies sore throat Card Denies chest pain, Denies palpitations and Reports dyspnea on exertion (mild) Resp Reports chest congestion (mild), Reports cough (recurrent, non-productive), Reports dyspnea on exertion (mild) and Denies wheezing GI Denies abdominal pain, Denies constipation, Denies dysphagia, Denies diarrhea, Denies nausea, Denies odynophagia and Denies vomiting Denies difficulty voiding, Denies dysuria and Denies urinary urgency Musc Details: increased pain over her right big toe Reports back pain (over the lumbar spine - chronic - increasing lately) and Reports arthralgias (over both knees-worse in the left knee) Skin/Breast Denies rash Neuro Denies dizziness and Denies headache(s) Psych Denies anxiety Endo Reports fatigue and Denies palpitations Aller/Immun Denies wheezing Physical exam (Primary Care) Vital Signs: Last Vital Signs Pulse 106 H 11/05/23 15:40 BP 138/90 H 11/05/23 15:46 Pulse Ox 96 11/05/23 15:40 Oxygen Delivery Method Room Air 11/05/23 15:40 BMI result Body Mass Index 35.2 Tobacco/Smoking Status: Tobacco use Status Tobacco use date assessed 11/05/23 11/05/23 15:48 Patient Tobacco Use Status Current everyday Tobacco 11/05/23 15:48 Tobacco use type Cigarette 11/05/23 15:48 e-Cigarette/Vaping Use Never Used 11/05/23 15:48 Thrive Assessment: Date of Thrive Assessment Date Thrive assessed 07/02/23 11/05/23 15:48 Const General: no acute distress and alert HENMT Ears: TM's normal bilaterally and EAC's normal Face and sinus: No sinus tenderness Throat: Yes posterior oropharynx normal and Yes tonsils normal Neck Neck: Yes no lymphadenopathy and Yes supple Thyroid: Thyroid normal Resp Auscultation: no crackles, no rales, rhonchi (scattered) throughout, no wheezes, diminished lung sounds (slightly) bilateral and no bronchial breath sounds Cardio Rate: regular rate Rhythm: regular rhythm Heart sounds: no murmurs GI Palpation (GI): Soft to palpation and nontender Auscultation: normal bowel sounds General: Yes no CVA tenderness Back/Spine/Pelvis Back: no CVA tenderness Thoracic/Lumbar Spine: lumbar spinal tenderness Skin Rashes: no rashes Extrem General: Yes no clubbing, cyanosis or edema Right lower extremity: knee Details: tenderness and crepitus; no swelling and foot Details: tenderness Location: of the great toe Location: at the MTP joint and along the entire digit Left lower extremity: knee Details: tenderness and crepitus; no swelling Results Reviewed Results Reviewed: Laboratory Tests 11/03/23 11/03/23 09:37 09:42 WBC 4.7 L Hgb 12.7 Hct 37.9 Plt Count 223 Sodium 141 Potassium 3.5 Creatinine 0.52 Estimated GFR > 60 Fasting Glucose 104 H Hemoglobin A1c % 5.8 Calcium 8.9 D AST 30 ALT 23 Triglycerides 129 Cholesterol 174 LDL Cholesterol, Calc 73 HDL Cholesterol 76 25-OH Vitamin D Total 54.5 TSH 2.22 Ur Specific [place] 1.015 Urine Protein 100 (2+) H Urine Glucose (UA) Negative Urine Blood Negative Urine Nitrite Negative Ur Leukocyte Esterase Negative Urine Microalbumin 394.0 Microalb/Creat Ratio 449.8 H Assessment and Plan Assessment & Plan (1) COPD (chronic obstructive pulmonary disease): Code(s): J44.9 - Chronic obstructive pulmonary disease, unspecified Qualifiers: COPD type: unspecified COPD Qualified Code(s): J44.9 - Chronic obstructive pulmonary disease, unspecified Plan: Continue Incruse Ellipta 62.5 mcg 1 inhalation QD, Advair Diskus 250-50 mcg 1 inhalation BID and Ventolin HFA 1 to 2 puffs 4 times a day as needed Patient feels that her respiratory symptoms (cough and congestion) have been slowly improving and prefers not to take any oral prednisone at this time if she can avoid it She is advised to call if her symptoms persist or get worse over the next 1-2 weeks Follow up with pulmonary (Dr. 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 insulin use: without custodial use Diabetes mellitus type: type 2 Qualified Code(s): E11.9 - Type 2 diabetes mellitus without complications Plan: Her HgbA1c was at 5.8% on her labs done a few days ago (was at 5.6% previously) - goal is <7.0% Reinforced diabetic diet Continue Metformin ER 500 mg QD Follow up with diabetic satellite dish installer at [facility] as scheduled (4) Migraine: Code(s): G43.909 - Migraine, unspecified, not intractable, without status migrainosus Qualifiers: Intractability: not intractable Migraine type: unspecified Status migrainosus presence: without status migrainosus Qualified Code(s): G43.909 - Migraine, unspecified, not intractable, without status migrainosus Plan: Stable Continue Fioricet 50-325-40 mg 3 to 4 times a day as needed (5) Central retinal vein occlusion with macular edema of right eye: Comment: Received VEGF receptor inhibitor therapy (injections) with Avastin from Dr. Myers in [place] Hypercoagulable work ups done came back mostly normal; was also checked for factor V Leiden mutation and prothrombin gene mutation by hematology - both came back negative - recommended only low dose aspirin therapy with no further intervention or work ups at this time Code(s): H34.8110 - Central retinal vein occlusion, right eye, with macular edema Plan: Continue Aspirin 81 mg QD Follow up with ophthalmology as scheduled (6) Elevated blood pressure reading: Code(s): R03.0 - Elevated blood-pressure reading, without diagnosis of hypertension Plan: She is advised that her current blood pressure is slightly better than previous but remains elevated Reinforced low sodium diet Will have patient continue to monitor her blood pressure regularly for now She is on Losartan 25 mg QD (started by nephrology last year) but this is more for her albuminuria although advised that it should also help with his BP and she is to continue on the Rx - may need to consider increasing this if she still cannot get her blood pressure to goal over the next few months (7) Albuminuria: Code(s): R80.9 - Proteinuria, unspecified Plan: Advised that albuminuria has increased significantly on her recent labs Patient was seen by nephrology (Dr. Kohli) back on 08/21/22 and started then on Losartan 25 mg QD Follow up with nephrology as scheduled (8) Lumbosacral spondylosis without myelopathy: Comment: Used to see Dr. Chen ([facility]) in the past until he retired a few years ago Code(s): M47.817 - Spondylosis without myelopathy or radiculopathy, lumbosacral region Plan: Reinforced activity and weight-lifting restrictions Continue Gabapentin 800 mg TID and Oxycodone 15 mg every 6 hours as needed for pain Repeat lumbar spine x-rays done in November 2022 revealed mild multilevel degenerative disc disease and bilateral facet arthropathy, slightly increased when compared to the prior radiograph (9) Bilateral primary osteoarthritis of knee: Code(s): M17.0 - Bilateral primary osteoarthritis of knee Plan: X-rays done back in 2014 revealed (+) OA changes in both knees Repeat x-rays of both knees in May 2021 showed (+) osteoarthritis in both knees that are mostly unchanged from previous although the arthritis is slightly worse in the left knee She has been seen by orthopedics and as patient failed to respond to cortisone injections, has been recommended to undergo total left knee arthroplasty by orthopedics - she is still debating on whether to go ahead with surgery or not Follow up with orthopedics as scheduled (10) Hallux rigidus of right foot: Code(s): M20.21 - Hallux rigidus, right foot Plan: Has been recommended surgery (fusion) of her right big toe by podiatry but has been strongly advised to quit smoking before going for surgery - patient remains very hesitant about going for surgery of her right foot Follow up with podiatry as scheduled (11) GERD without esophagitis: Comment: S/P EGD in November 2018 Code(s): K21.9 - Gastro-esophageal reflux disease without esophagitis Plan: Dietary restrictions reinforced Continue Famotidine 40 mg Q HS and Esomeprazole 40 mg QD Follow up with GI as scheduled (12) Elevated LFTs: Code(s): R79.89 - Other specified abnormal findings of blood chemistry Plan: Her LFTs have improved and remained normal on her recent labs - were most likely related to her weight Will continue to monitor her LFTs regularly (13) Vitamin D deficiency: Code(s): E55.9 - Vitamin D deficiency, unspecified Plan: Continue Vitamin D3 2000 uinits QD (14) Psoriasis: Comment: Was started on Otezla a few months ago but could not tolerate the Rx - had chest pains and increased low back pain Code(s): L40.9 - Psoriasis, unspecified Plan: Patient could not tolerate Otezla Follow up with dermatology as scheduled (15) Constipation: Code(s): K59.00 - Constipation, unspecified Qualifiers: Constipation type: unspecified constipation type Qualified Code(s): K59.00 - Constipation, unspecified Plan: Most likely opioid-induced Encouraged increased oral fluid and dietary fiber Continue Docusate 100 mg QD PRN - Rx refilled (16) Insomnia: Code(s): G47.00 - Insomnia, unspecified Qualifiers: Insomnia type: unspecified Qualified Code(s): G47.00 - Insomnia, unspecified Plan: Sleep hygiene reinforced Continue Zolpidem 10 mg Q HS PRN (17) Anxiety: Code(s): F41.9 - Anxiety disorder, unspecified Plan: Continue Clonazepam 1 mg TID PRN (18) Post traumatic stress disorder (PTSD): Code(s): F43.10 - Post-traumatic stress disorder, unspecified Plan: Continue Sertraline at 225 mg (2 x 100 mg + 25 mg) daily - Rx is being managed by psychiatry (19) Depression: Code(s): F32.9 - Major depressive disorder, single episode, unspecified Qualifiers: Depression Type: unspecified Qualified Code(s): F32.9 - Major depressive disorder, single episode, unspecified Plan: Continue Sertraline 225 mg QD Follow up with psychiatry as scheduled (20) Smoker: Code(s): F17.200 - Nicotine dependence, unspecified, uncomplicated Plan: Counseled again on smoking cessation Continue Nicotine patches to help her quit smoking in preparation for her proposed surgeries (21) Obesity (BMI 30-39.9): Code(s): E66.9 - Obesity, unspecified Plan: Reinforced diet/exercise as tolerated/lose weight Plan Follow up in 3 months Orders: Orders Lipid Panel 3 Months E78.00 - Pure hypercholesterolemia, unspecified Complete Blood Count Auto Diff 3 Months D64.9 - Anemia, unspecified Comprehensive [place]. Panel Fast 3 Months E78.00 - Pure hypercholesterolemia, unspecified Medications: Refilled docusate sodium 100 mg PO DAILY PRN 90 caps 3RF constipation 90 days K59.00 - Constipation, unspecified nystatin 1 appl topical QID PRN 60 grams 3RF rash R21 - Rash and other nonspecific skin eruption atorvastatin 40 mg PO DAILY 90 tabs 1RF 90 days E78.00 - Pure hypercholesterolemia, unspecified Coding Level of Care Code Est Pt Level 4 (19315) Diagnoses Chronic obstructive pulmonary disease, unspecified COPD type J44.9 COPD type: unspecified COPD Pure hypercholesterolemia E78.00 Type 2 diabetes mellitus without complication, without long-term current use of insulin E11.9 Diabetes mellitus complication status: without complication Diabetes mellitus custodial insulin use: without 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 use Diabetes mellitus type: type 2 Migraine without status migrainosus, not intractable, unspecified migraine type G43.909 Intractability: not intractable Migraine type: unspecified Status migrainosus presence: without status migrainosus Central retinal vein occlusion with macular edema of right eye H34.8110 Elevated blood pressure reading R03.0 Albuminuria R80.9 Lumbosacral spondylosis without myelopathy M47.817 Bilateral primary osteoarthritis of knee M17.0 Hallux rigidus of right foot M20.21 GERD without esophagitis K21.9 Elevated LFTs R79.89 Vitamin D deficiency E55.9 Psoriasis L40.9 Constipation, unspecified constipation type K59.00 Constipation type: unspecified constipation type Insomnia, unspecified type G47.00 Insomnia type: unspecified Anxiety F41.9 Post traumatic stress disorder (PTSD) F43.10 Depression, unspecified depression type F32.9 Depression Type: unspecified Smoker F17.200 Obesity (BMI 30-39.9) E66.9
[2023-11-05 15:40] VITALS: BP 140/90; PULSE 106; O2SAT 96; BMI 35.2
[2023-11-05 15:46] VITALS: BP 138/90
== END 2023-11-05 16:01 | disposition home or self-care (01) ==
PROVIDERS: PCP Internal Medicine; Visit Provider Internal Medicine
DX: J44.9 Chronic obstructive pulmonary disease, unspecified (principal); E78.00 Pure hypercholesterolemia, unspecified; E11.9 Type 2 diabetes mellitus without complications; G43.909 Migraine, unspecified, not intractable, without status migrainosus; R03.0 Elevated blood-pressure reading, without diagnosis of hypertension; R80.9 Proteinuria, unspecified; M47.817 Spondylosis without myelopathy or radiculopathy, lumbosacral region; M17.0 Bilateral primary osteoarthritis of knee; M20.21 Hallux rigidus, right foot; K21.9 Gastro-esophageal reflux disease without esophagitis; R79.89 Other specified abnormal findings of blood chemistry; E55.9 Vitamin D deficiency, unspecified
CPT/HCPCS: 99214

== ENCOUNTER 2024-03-14 10:53 | Outpatient (AMB) | payer OTHER, SELFPAY ==
[2024-03-14 10:56] VITALS: BP 122/80; PULSE 92; O2SAT 94; BMI 35.2
--- NOTE | 2024-03-14 10:56 | A.OFFPC_ITS ---
Vital Signs 03/14/24 10:56 Height 5 ft Weight 180 lb 6 oz BMI 35.2 BP 122/80 Blood Pressure Location Lt brachial Position Sitting Pulse 92 Pulse Source Pulse Oximeter Pulse Oximetry (%) 94 Oxygen Delivery Method Room Air Intake Visit Reasons: follow up Chimney Builder Required: No Accompanied by: Self / Same As Patient Allergies hydromorphone [From DILAUDID] Allergy (Severe, Verified 03/14/24 11:40) HALLUCINATION clarithromycin [CLARITHROMYCIN] Allergy (Intermediate, Verified 03/14/24 11:40) ITCHING codeine [CODEINE] Allergy (Intermediate, Verified 03/14/24 11:40) ITCHING morphine [MORPHINE] Allergy (Intermediate, Verified 03/14/24 11:40) ITCHING, HEADACHE Penicillins [PENICILLINS] Allergy (Intermediate, Verified 03/14/24 11:40) NAUSEA & VOMITING, ABD PAIN NSAIDS (Non-Steroidal Anti-Inflamma Allergy (Unknown, Verified 03/14/24 11:40) not tolerated penicillin V Allergy (Unknown, Verified 03/14/24 11:40) Nausea and Vomiting meperidine [From DEMEROL] Adverse Reaction (Intermediate, Verified 03/14/24 11:40) NAUSEA & VOMITING Lactose intolerance Allergy (Unknown, Uncoded 03/14/24 11:40) Unknown Medication List - Last Reconciled 03/14/24 by Robbie Cronin MD acetaminophen 500 mg PO Q6H PRN albuterol sulfate 90 mcg/actuation 2 puffs PO Q6H PRN aspirin 81 mg PO DAILY 90 days atorvastatin 40 mg PO DAILY 90 days [BED PADS 36 x 36 As directed] blood sugar diagnostic (SyndicateRoom Ultra Test strips) As directed once a day blood-glucose meter (SyndicateRoom Ultra2 Meter) As directed once a day cholecalciferol (vitamin D3) 50 mcg PO DAILY 90 days clonazepam 1 mg PO TID PRN 30 days diphenhydramine HCl (Banophen) 50 mg (2 x 25 mg) PO BEDTIME PRN docusate sodium 100 mg PO DAILY PRN 90 days famotidine 40 mg PO BID 30 days fluticasone propion-salmeterol 250-50 mcg/dose ea inhalation gabapentin 800 mg PO TID 30 days lancets (Pharmapoduch UltraSoft Lancets) As directed once a day lidocaine 5% 1 patch topical DAILY 30 days losartan 25 mg PO DAILY 90 days metformin ER 500 mg PO BEDTIME 90 days miscellaneous medical supply 1 ea miscellaneous DAILY naproxen 375 mg PO BID PRN 30 days nystatin 1 appl topical QID PRN ondansetron HCl 4 mg PO Q8H PRN oxycodone 15 mg PO Q6H PRN 28 days sertraline 25 mg PO DAILY sertraline 200 mg PO DAILY umeclidinium-vilanterol 62.5-25 mcg/actuation (Anoro Ellipta) 1 ea inhalation DAILY zolpidem 10 mg PO BEDTIME PRN 30 days Tobacco use date assessed: 03/14/24 Dental Screening Dental Screen Date: 03/14/24 Did you have a dental visit in the last 12 months?: No Did you have a dental problem in the last 6 months where you did not have access to dental care?: No Was dental information given to patient?: No HPI follow up HPI Details Patient comes in today for her follow up visit States that she still has recurrent cough and congestion - chronic States that she continues to use her inhalers regularly as prescribed and has her nebulizer to use when needed Admits that she is still smoking - she is actively still trying to quit but admits that it is not easy States that she has a follow up appointment with pulmonary (Dr. Vee) in a couple of weeks She denies any fever or sore throat Denies any headaches or dizziness Denies any chest pains, no increased shortness of breath No nausea /vomiting, no abdominal pain No change in bowel habits noted States that her chronic pains remain adequately controlled on her current medications and she does not need any refills at this time Patient also brought in letter from Adult Psych at [facility] notifying her that her psychiatry provider is leaving the practice on 01/17/24 and will provide her with a 30 days supply of Rx to help bridge her to a new provider - a copy of t his letter will be scanned into her chart Have also advised her that she should start looking for a new psychiatry provider [facility] Patient states that she is currently still looking for a new provider and may need Rx refills from us in the meantime States that she forgot to get her follow up labs done before her appointment today and will try to get these done [facility] Medical History COPD (chronic obstructive pulmonary disease) Bilateral primary osteoarthritis of knee Obesity (BMI 30-39.9) Smoker Depression Post traumatic stress disorder (PTSD) Anxiety Insomnia Psoriasis Constipation GERD without esophagitis Vitamin D deficiency Sleep apnea Osteoarthritis, foot, localized Degenerative arthritis of knee, bilateral Elevated LFTs Central retinal vein occlusion with macular edema of right eye Migraine Lumbosacral spondylosis without myelopathy Pulmonary emphysema Elevated blood pressure reading Pure hypercholesterolemia Diabetes mellitus Lumbar degenerative disc disease Headache Surgical History History of esophagogastroduodenoscopy (EGD) Hx of colonoscopy History of surgery History of total abdominal hysterectomy and bilateral salpingo-oophorectomy History of umbilical hernia repair History of inguinal hernia repair History of left oophorectomy Family History Father Medical history unknown Mother Lung cancer Brother Lung cancer Brother Liver cancer Other Mental health problem Substance abuse Social History Housing: Apartment Alcohol intake: current Alcohol intake frequency: holidays/special occasions only Patient Tobacco Use Status: Current everyday Tobacco user Tobacco use type: Cigarette Cigarette Packs Per Day: 0.5 Cigarettes Per Day: 10 e-Cigarette/Vaping Use: Never Used Second Hand Smoke Exposure: Yes service: No Current occupational status: disabled Cognitive needs: No Hearing needs: No Vision needs: Yes (glasses) Questionnaire PHQ-9 Over the last 2 weeks, how often have you been bothered by any of the following problems? 1. Little interest or pleasure in doing things: several days 2. Feeling down, depressed, or hopeless: several days 3. Trouble falling or staying asleep, or sleeping too much: several days 4. Feeling tired or having little energy: several days 5. Poor appetite or overeating: several days 6. Feeling bad about yourself - or that you are a failure or have let yourself or your family down: several days 7. Trouble concentrating on things, such as reading the newspaper or watching television: not at all 8. Moving or speaking so slowly that other people could have noticed. Or the opposite - being so fidgety or restless that you have been moving around a lot more than usual: not at all 9. Thoughts that you would be better off or of hurting yourself in some way: not at all Total score: 6 Depression Screening Interpretation: Positive Depression Screening Follow-up: Existing condition and In treatment Depression Screening Done: Yes 75191 - PHQ-9 Billing: Yes Source: Developed by Drs. Rommel Desir, Marlene Villalta, Dani Key and colleagues, with an educational juana from [employer]. Thrive Questionnaire Date Thrive assessed: 03/14/24 I am a: Patient What is your living situation today?: I have a steady place to live Within the past 12 months, did the food you bought not last and you didn't have the money to get more?: Never true Within the past 12 months, did you worry whether your food would run out before you got money to buy more?: Never true Do you have trouble paying for medicines?: No Do you have trouble getting transportation to medical appointments?: No Do you have trouble paying your heating and electricity bill?: No Do you have trouble taking care of your child, family member or friend?: No Do you have trouble with day-to-day activities such as bathing, preparing meals, shopping, managing finances, etc.?: No Are you currently unemployed and looking for a job?: No Are you interested in more education?: No Please select the resources that you would like help with: None Currently or been in a relationship where the following occur: No concerns reported THRIVE Score: 0 AUDIT C Alcohol Use Questionnaire (AUDIT-C) 1. How often do you have a drink containing alcohol?: Never 3. How often do you have six or more drinks on one occasion?: Never Total Score: 0 Score Reviewed/Action Taken: Yes HÉCTOR-7 AMB Questionnaire HÉCTOR-7 Date HÉCTOR - 7 assessed: 03/14/24 Feeling nervous, anxious, or on edge: 0 = Not at all Not being able to stop or control worryin = Not at all Worrying too much about different things: 0 = Not at all Trouble relaxin = Not at all Being so restless that it is hard to sit still: 0 = Not at all Becoming easily annoyed or irritable: 0 = Not at all Feeling afraid as if something awful might happen: 0 = Not at all Total HÉCTOR-7 score (0-4 normal; 5-9 mild; 10-14 moderate; 15-21 severe): 0 Source: Developed by Drs. Rommel Desir, Marlene Villalta, Dani Key and colleagues, with an educational juana from [employer]. Review of Systems Const Denies chills, Reports fatigue, Denies fever(s) and Denies headache(s) ENT Denies dysphagia, Denies dizziness, Denies headache(s), Denies neck pain, Denies odynophagia and Denies sore throat Card Denies chest pain, Denies palpitations and Reports dyspnea on exertion (mild) Resp Reports chest congestion (mild), Reports cough (recurrent, non-productive), Reports dyspnea on exertion (mild) and Denies wheezing GI Denies abdominal pain, Denies constipation, Denies dysphagia, Denies diarrhea, Denies nausea, Denies odynophagia and Denies vomiting Denies difficulty voiding, Denies dysuria and Denies urinary urgency Musc Details: increased pain over her right big toe Reports back pain (over the lumbar spine - chronic - increasing lately), Reports arthralgias (over both knees-worse in the left knee) and Denies neck pain Skin/Breast Denies rash Neuro Denies dizziness and Denies headache(s) Psych Denies anxiety Endo Reports fatigue and Denies palpitations Aller/Immun Denies wheezing Physical exam (Primary Care) Vital Signs: Last Vital Signs Pulse 92 03/14/24 10:56 BP 122/80 03/14/24 10:56 Pulse Ox 94 03/14/24 10:56 Oxygen Delivery Method Room Air 03/14/24 10:56 BMI result Body Mass Index 35.2 Tobacco/Smoking Status: Tobacco use Status Tobacco use date assessed 03/14/24 03/14/24 11:03 Patient Tobacco Use Status Current everyday Tobacco 03/14/24 11:03 Tobacco use type Cigarette 03/14/24 11:03 e-Cigarette/Vaping Use Never Used 03/14/24 11:03 PHQ-9: PHQ-9 Score PHQ-9: Total score 6 03/14/24 11:45 Depression Screening Interpretation: Positive Depression Screening Follow-up: Existing condition and In treatment Thrive Assessment: Date of Thrive Assessment Date Thrive assessed 03/14/24 03/14/24 11:03 Currently or been in a relationship where the following occur: No concerns reported Const General: no acute distress and alert HENMT Ears: TM's normal bilaterally and EAC's normal Throat: Yes posterior oropharynx normal and Yes tonsils normal Neck Neck: Yes no lymphadenopathy and Yes supple Thyroid: Thyroid normal Resp Auscultation: no crackles, no rales, rhonchi (scattered) throughout, no wheezes, diminished lung sounds (slightly) bilateral and no bronchial breath sounds Cardio Rate: regular rate Rhythm: regular rhythm Heart sounds: no murmurs GI Palpation (GI): Soft to palpation and nontender Auscultation: normal bowel sounds General: Yes no CVA tenderness Back/Spine/Pelvis Back: no CVA tenderness Thoracic/Lumbar Spine: lumbar spinal tenderness Skin Rashes: no rashes Extrem General: Yes no clubbing, cyanosis or edema Right lower extremity: knee Details: tenderness and crepitus; no swelling and foot Details: tenderness Location: of the great toe Location: at the MTP joint and along the entire digit Left lower extremity: knee Details: tenderness and crepitus; no swelling Assessment and Plan Assessment & Plan (1) COPD (chronic obstructive pulmonary disease): Code(s): J44.9 - Chronic obstructive pulmonary disease, unspecified Qualifiers: COPD type: unspecified COPD Qualified Code(s): J44.9 - Chronic obstructive pulmonary disease, unspecified Plan: Continue Incruse Ellipta 62.5 mcg 1 inhalation QD, Advair Diskus 250-50 mcg 1 inhalation BID and Ventolin HFA 1 to 2 puffs 4 times a day as needed Patient reports that she continues to experience recurrent cough and congestion often and is aware that her symptoms are related to her smoking, which she is currently still doing She is advised to call if her symptoms persist or get worse and she feels that she needs oral prednisone again Follow up with pulmonary (Dr. Vee) at [facility] as scheduled (2) Pure hypercholesterolemia: Code(s): E78.00 - Pure hypercholesterolemia, unspecified Plan: She was not able to get her follow up labs done prior to her appointment today and states that she will get them done [facility] Reinforced low cholesterol diet Continue Atorvastatin 40 mg QD Will recheck her labs and fasting lipids in 3 months for follow-up (3) Diabetes mellitus: Code(s): E11.9 - Type 2 diabetes mellitus without complications Qualifiers: Diabetes mellitus complication status: without complication Diabetes mellitus termite technician insulin use: without senior care use Diabetes mellitus type: type 2 Qualified Code(s): E11.9 - Type 2 diabetes mellitus without complications Plan: Her HgbA1c was at 5.8% when last checked a few months ago (was previously at 5.6%) - goal is <7.0% Reinforced diabetic diet Continue Metformin ER 500 mg QD Follow up with diabetic sap business analyst at [facility] as scheduled (4) Migraine: Code(s): G43.909 - Migraine, unspecified, not intractable, without status migrainosus Qualifiers: Intractability: not intractable Migraine type: unspecified Status migrainosus presence: without status migrainosus Qualified Code(s): G43.909 - Migraine, unspecified, not intractable, without status migrainosus Plan: Stable Continue Fioricet 50-325-40 mg 3 to 4 times a day as needed (5) Central retinal vein occlusion with macular edema of right eye: Comment: Received VEGF receptor inhibitor therapy (injections) with Avastin from Dr. Myers in [place] Hypercoagulable work ups done came back mostly normal; was also checked for factor V Leiden mutation and prothrombin gene mutation by hematology - both came back negative - recommended only low dose aspirin therapy with no further intervention or work ups at this time Code(s): H34.8110 - Central retinal vein occlusion, right eye, with macular edema Plan: Continue Aspirin 81 mg QD Follow up with ophthalmology as scheduled (6) Elevated blood pressure reading: Code(s): R03.0 - Elevated blood-pressure reading, without diagnosis of hypertension Plan: Her blood pressure is currently well-controlled Reinforced low sodium diet Will have patient continue to monitor her blood pressure regularly for now She is on Losartan 25 mg QD (started by nephrology last year) but this is more for her albuminuria although advised that it should also help with his BP and she is to continue on the Rx (7) Albuminuria: Code(s): R80.9 - Proteinuria, unspecified Plan: Continue Losartan 25 mg QD Follow up with nephrology (Dr. Kohli) as scheduled (8) Lumbosacral spondylosis without myelopathy: Comment: Used to see Dr. Chen ([facility]) in the past until he retired a few years ago Code(s): M47.817 - Spondylosis without myelopathy or radiculopathy, lumbosacral region Plan: Reinforced activity and weight-lifting restrictions Continue Gabapentin 800 mg TID and Oxycodone 15 mg every 6 hours as needed for pain Repeat lumbar spine x-rays done in November 2022 revealed mild multilevel degenerative disc disease and bilateral facet arthropathy, slightly increased when compared to the prior radiograph (9) Bilateral primary osteoarthritis of knee: Code(s): M17.0 - Bilateral primary osteoarthritis of knee Plan: X-rays done back in 2014 revealed (+) OA changes in both knees Repeat x-rays of both knees in May 2021 showed (+) osteoarthritis in both knees that are mostly unchanged from previous although the arthritis is slightly worse in the left knee She has been seen by orthopedics and as patient failed to respond to cortisone injections, has been recommended to undergo total left knee arthroplasty by orthopedics - she is still debating on whether to go ahead with surgery or not Follow up with orthopedics as scheduled (10) Hallux rigidus of right foot: Code(s): M20.21 - Hallux rigidus, right foot Plan: Has been recommended surgery (fusion) of her right big toe by podiatry but has been strongly advised to quit smoking before going for surgery - patient remains very hesitant about going for surgery of her right foot Follow up with podiatry as scheduled (11) GERD without esophagitis: Comment: S/P EGD in November 2018 Code(s): K21.9 - Gastro-esophageal reflux disease without esophagitis Plan: Dietary restrictions reinforced Continue Famotidine 40 mg Q HS and Esomeprazole 40 mg QD Follow up with GI as scheduled (12) Elevated LFTs: Code(s): R79.89 - Other specified abnormal findings of blood chemistry Plan: Her LFTs have improved and remained normal on her most recent labs from a few months ago - were most likely related to her weight Will continue to monitor her LFTs regularly (13) Vitamin D deficiency: Code(s): E55.9 - Vitamin D deficiency, unspecified Plan: Continue Vitamin D3 2000 uinits QD (14) Psoriasis: Comment: Was started on Otezla a few months ago but could not tolerate the Rx - had chest pains and increased low back pain Code(s): L40.9 - Psoriasis, unspecified Plan: Patient could not tolerate Otezla previously Follow up with dermatology as scheduled (15) Constipation: Code(s): K59.00 - Constipation, unspecified Qualifiers: Constipation type: unspecified constipation type Qualified Code(s): K59.00 - Constipation, unspecified Plan: This is most likely opioid-induced Encouraged again on increased oral fluid and dietary fiber Continue Docusate 100 mg QD PRN (16) Insomnia: Code(s): G47.00 - Insomnia, unspecified Qualifiers: Insomnia type: unspecified Qualified Code(s): G47.00 - Insomnia, unspecified Plan: Sleep hygiene reinforced Continue Zolpidem 10 mg Q HS PRN (17) Anxiety: Code(s): F41.9 - Anxiety disorder, unspecified Plan: Continue Clonazepam 1 mg TID PRN (18) Post traumatic stress disorder (PTSD): Code(s): F43.10 - Post-traumatic stress disorder, unspecified Plan: Continue Sertraline at 225 mg (2 x 100 mg + 25 mg) daily - Rx was being managed by psychiatry (19) Depression: Code(s): F32.9 - Major depressive disorder, single episode, unspecified Qualifiers: Depression Type: unspecified Qualified Code(s): F32.9 - Major depr essive disorder, single episode, unspecified Plan: Continue Sertraline 225 mg QD Follow up with psychiatry as scheduled - states that she is currently looking for a new psychiatrist or psych provider (20) Smoker: Code(s): F17.200 - Nicotine dependence, unspecified, uncomplicated Plan: Counseled again on smoking cessation Continue Nicotine patches to help her quit smoking in preparation for her proposed surgeries (21) Obesity (BMI 30-39.9): Code(s): E66.9 - Obesity, unspecified Plan: Reinforced diet/exercise as tolerated/lose weight Plan Follow up in 3 months Orders: Orders Lipid Panel 3 Months E78.00 - Pure hypercholesterolemia, unspecified UA CC w/rflx Micro + Cult 3 Months R30.0 - Dysuria Complete Blood Count Auto Diff 3 Months D64.9 - Anemia, unspecified Comprehensive Banquete. Panel Fast 3 Months E78.00 - Pure hypercholesterolemia, unspecified Hemoglobin A1c 3 Months E11.9 - Type 2 diabetes mellitus without complications Microalbumin, Random (w Creat) 3 Months E11.9 - Type 2 diabetes mellitus without complications TSH reflex Free T4 3 Months E78.00 - Pure hypercholesterolemia, unspecified Vitamin D 25-OH Total 3 Months E55.9 - Vitamin D deficiency, unspecified Coding Level of Care Code Est Pt Level 4 (63734) Complex EM visit Add On G2211 Diagnoses Chronic obstructive pulmonary disease, unspecified COPD type J44.9 COPD type: unspecified COPD Pure hypercholesterolemia E78.00 Type 2 diabetes mellitus without complication, without long-term current use of insulin E11.9 Diabetes mellitus complication status: without complication Diabetes mellitus senior care insulin use: without termite technician use Diabetes mellitus type: type 2 Migraine without status migrainosus, not intractable, unspecified migraine type G43.909 Intractability: not intractable Migraine type: unspecified Status migrainosus presence: without status migrainosus Central retinal vein occlusion with macular edema of right eye H34.8110 Elevated blood pressure reading R03.0 Albuminuria R80.9 Lumbosacral spondylosis without myelopathy M47.817 Bilateral primary osteoarthritis of knee M17.0 Hallux rigidus of right foot M20.21 GERD without esophagitis K21.9 Elevated LFTs R79.89 Vitamin D deficiency E55.9 Psoriasis L40.9 Constipation, unspecified constipation type K59.00 Constipation type: unspecified constipation type Insomnia, unspecified type G47.00 Insomnia type: unspecified Anxiety F41.9 Post traumatic stress disorder (PTSD) F43.10 Depression, unspecified depression type F32.9 Depression Type: unspecified Smoker F17.200 Obesity (BMI 30-39.9) E66.9
== END 2024-03-14 11:50 | disposition home or self-care (01) ==
PROVIDERS: PCP Internal Medicine; Visit Provider Internal Medicine
DX: J44.9 Chronic obstructive pulmonary disease, unspecified (principal); E11.9 Type 2 diabetes mellitus without complications; H34.8110 Central retinal vein occlusion, right eye, with macular edema; E78.00 Pure hypercholesterolemia, unspecified; G43.909 Migraine, unspecified, not intractable, without status migrainosus; R03.0 Elevated blood-pressure reading, without diagnosis of hypertension; R80.9 Proteinuria, unspecified; M47.817 Spondylosis without myelopathy or radiculopathy, lumbosacral region; M17.0 Bilateral primary osteoarthritis of knee; M20.21 Hallux rigidus, right foot; K21.9 Gastro-esophageal reflux disease without esophagitis; R79.89 Other specified abnormal findings of blood chemistry

== ENCOUNTER → 2024-03-14 10:53 | Outpatient (BNVA) | payer OTHER, SELFPAY | PROVIDERS: PCP Internal Medicine; Visit Provider Internal Medicine | DX: J44.9 Chronic obstructive pulmonary disease, unspecified (principal); E78.00 Pure hypercholesterolemia, unspecified; E11.9 Type 2 diabetes mellitus without complications; G43.909 Migraine, unspecified, not intractable, without status migrainosus; H34.8110 Central retinal vein occlusion, right eye, with macular edema; R03.0 Elevated blood-pressure reading, without diagnosis of hypertension; R80.9 Proteinuria, unspecified; K21.9 Gastro-esophageal reflux disease without esophagitis; R79.89 Other specified abnormal findings of blood chemistry; E55.9 Vitamin D deficiency, unspecified; L40.9 Psoriasis, unspecified; K59.00 Constipation, unspecified; F41.9 Anxiety disorder, unspecified; F43.10 Post-traumatic stress disorder, unspecified; F32.9 Major depressive disorder, single episode, unspecified; E66.9 Obesity, unspecified; Z68.35 Body mass index [BMI] 35.0-35.9, adult; F17.200 Nicotine dependence, unspecified, uncomplicated; Z71.6 Tobacco abuse counseling; Z71.3 Dietary counseling and surveillance | CPT/HCPCS: 99212 ==

== ENCOUNTER 2024-06-12 09:14 | Outpatient (REF) | payer OTHER, SELFPAY ==
--- OUTSIDE RECORDS SUMMARY | 2024-06-12 09:16 | XMS_ITS | Data Portability ---
Author Organization [facility] [place] [facility] Address [address] [place] [id number] Care Team Providers Care Pastoral Counselor Name Role Phone [facility] Referring Provider Assessment No assessment recorded. Plan of Treatment Reminders Order Date Submit Date Provider Last Modified By Organization Details Last Modified Time Details Appointments None recorded. Lab cmp, whole blood + chapis [facility], [address] [place] [address], [place], [phone], 2 21:35:35 Referral None recorded. Procedures None recorded. Surgeries None recorded. Imaging None recorded. Medication Orders None recorded. Patient TargetsNo targets recorded. Patient InstructionsNo instructions recorded. Reason for Referral None Reported. Results Created Date Observation Date Name Description Value Unit Range Abnormal Flag Note LastModifiedBy Organization Detail LastModifiedTime Result Notes None recorded. Medical Equipment None Reported. Allergies Allergen ID Allergen Name Allergen Category Reaction Reaction Severity Criticality Documentation Date Start Date Code Code System Note Provider Name and Address Organization Details Recorded Time 8681 Medicinal product containin g penicilli n and acting as antibacte rial agent (product) medicatio n Not available Not available Not available 04/15/2024 15051 05 SNOMED Not Available [facility] - production 4 03:45:59 Medications Name Sig Start Date Stop Date Status Note LastModified by Organization Details LastModified Time atorvastatin 40 mg tablet TAKE 1 TABLET BY MOUTH DAILY active Not Available Not Available Not Available prednisone 10 mg tablet TAKE 4 TABLETS BY MOUTH DAILY X2DAYS TAKE 3 TABLETS DAILY [id number] TAKE 2 TABLETS DAILY X2DAYS TAKE 1 TABLET DAILY X2DAYS active Not Available Not Available No t Available nicotine 14 mg/24 hr daily transdermal patch APPLY 1 PATCH TOPICALLY TO THE SKIN DAILY FOR 7 DAYS active Not Available Not Available No t Available albuterol sulfate 2.5 mg/3 mL (0.083 %) solution for nebulization USE 1 VIAL VIA NEBULIZER THREE TIMES DAILY active Not Available Not Available No t Available azithromycin 250 mg tablet TAKE 2 TABLETS BY MOUTH FOR 1 DAY THEN TAKE 1 TABLET BY MOUTH DAILY FOR 4 DAYS active Not Available Not Available N ot Available Nystop 100,000 unit/gram topical powder APPLY TOPICALLY FOUR TIMES DAILY NEEDED FOR RASH active Not Available Not Available No t Available prazosin 1 mg capsule TAKE 1 CAPSULE BY MOUTH DAILY AT BEDTIME NEEDED FOR SLEEP active Not Available Not Available No t Available ondansetron HCl 4 mg tablet TAKE 1 TABLET BY MOUTH EVERY 8 HOURS NEEDED FOR NAUSEA OR VOMITING active Not Available Not Available No t Available famotidine 40 mg tablet TAKE 1 TABLET BY MOUTH TWICE DAILY FOR HEARTBURN active Not Available Not Available No t Available sertraline 100 mg tablet TAKE 2 TABLETS BY MOUTH DAILY active Not Available Not Available Not Available clonazepam 1 mg tablet TAKE 1 TABLET BY MOUTH THREE TIMES DAILY NEEDED FOR ANXIETY active Not Available Not Available Not Available aspirin 81 mg tablet,delay ed release TAKE 1 TABLET BY MOUTH EVERY DAY active Not Available Not Available No t Available doxycycline monohydrate 100 mg tablet TAKE 1 TABLET BY MOUTH TWICE DAILY FOR 7 DAYS active Not Available Not Available No t Available oxycodone 15 mg tablet TAKE 1 TABLET BY MOUTH EVERY 6 HOURS NEEDED FOR PAIN active Not Available Not Available No t Available gabapentin 800 mg tablet TAKE 1 TABLET BY MOUTH THREE TIMES DAILY active Not Available Not Available Not Available OneTouch Ultra Test strips USE TO TEST BLOOD SUGAR EVERY DAY active Not Available Not Available No t Available benzonatate 100 mg capsule TAKE 1 CAPSULE BY MOUTH TWICE DAILY NEEDED FOR COUGH active Not Available Not Available No t Available nicotine 21 mg/24 hr daily transdermal patch APPLY 1 PATCH TOPICALLY TO THE SKIN DAILY FOR 7 DAYS active Not Available Not Available No t Available docusate sodium 100 mg capsule TAKE 1 CAPSULE BY MOUTH DAILY NEEDED FOR CONSTIPATIO N active Not Available Not Available No t Available sertraline 25 mg tablet TAKE 1 TABLET BY MOUTH DAILY active Not Available Not Available Not Available Banophen 25 mg capsule TAKE 2 CAPSULES BY MOUTH EVERY NIGHT AT BEDTIME NEEDED FOR INSOMNIA active Not Available Not Available No t Available ibuprofen 600 mg tablet TAKE 1 TABLET BY MOUTH FOUR TIMES DAILY NEEDED FOR PAIN active Not Available Not Available No t Available zolpidem 10 mg tablet TAKE 1 TABLET BY MOUTH DAILY AT BEDTIME NEEDED FOR SLEEP active Not Available Not Available No t Available albuterol sulfate HFA 90 mcg/actuatio n aerosol inhaler INHALE 2 PUFFS INTO THE LUNGS FOUR TIMES DAILY NEEDED FOR COUGH OR WHEEZING active Not Available Not Available No t Available fluticasone propionate 50 mcg/actuatio n nasal spray,suspen don INSTILL 1 SPRAY INTO EACH NOSTRIL EVERY DAY active Not Available Not Available No t Available metformin ER 500 mg tablet,exten ded release 24 hr TAKE 1 TABLET BY MOUTH AT BEDTIME active Not Available Not Available No t Available doxycycline hyclate 100 mg tablet TAKE 1 TABLET BY MOUTH TWICE DAILY FOR 7 DAYS active Not Available Not Available No t Available nicotine 7 mg/[address] daily transdermal patch PLACE 1 PATCH ONTO THE SKIN EVERY DAY active Not Available Not Available No t Available aripiprazole 2 mg tablet TAKE 1 TABLET BY MOUTH DAILY active Not Available Not Available Not Available cholecalcife rol (vitamin D3) 50 mcg (2,000 unit) capsule TAKE 1 CAPSULE BY MOUTH EVERY DAY active Not Available Not Available No t Available lidocaine 5 % topical ointment APPLY TOPICALLY TO THE AFFECTED AREA THREE TIMES DAILY NEEDED FOR PAIN active Not Available Not Available No t Available Anoro Ellipta 62.5 mcg-25 mcg/actuatio n powder for inhalation INHALE 1 PUFF BY MOUTH INTO THE LUNGS EVERY DAY active Not Available Not Available No t Available Incruse Ellipta 62.5 mcg/actuatio n powder for inhalation INHALE 1 PUFF BY MOUTH EVERY DAY active Not Available Not Available No t Available OneTouch Ultra2 Meter USE TO TEST BLOOD SUGAR EVERY DAY active Not Available Not Available No t Available OneTouch Delica Plus Lancet 33 gauge USE TO TEST BLOOD SUGAR EVERY DAY active Not Available Not Available No t Available Flowflex COVID-19 Antigen Home Test kit TEST DIRECTED TODAY active Not Available Not Available No t Available Vitals Date Recorded Heart rate Body temperature Oxygen saturation Oxygen saturation in Arterial blood by Pulse oximetry Respiratory rate Heart rate Body temperature Respiratory rate Oxygen saturation Oxygen saturation in Arterial blood by Pulse oximetry Systolic blood pressure Diastolic blood pressure Systolic blood pressure Diastolic blood pressure Provider Name and Address Organization Details Last Updated DateTime 2 76 /min 98.7 [degF] 97 % 97 % 18 /min 76 /min 98.7 [degF] 18 /min 97 % 97 % 162 mm[Hg] 98 mm[Hg] 162 mm[Hg] 98 mm[Hg] Not Available [facility] - production 18:59:25 Social History None recorded. Functional Status None recorded. Mental Status None recorded. Family History Nothing Reported. Medical History No medical history recorded. Gynecological HistoryNo gynecological history recorded. Obstetrics History GPAL:G 0 P 0 0 0 0 Past Encounters Encounter ID Performer Location Encounter Start Date Encounter Closed Date Diagnosis/Indication Diagnosis SNOMED-CT Code Diagnosis ICD10 Code [id number] Kathie Gonzales MD [facility] [address] [place] [phone] 04/10/2022 18:16:17 04/10/2022 19:10:49 Bilateral lower limb edema 325834760 R60.0 Health Concerns Section Related Observation LastModified by Organization Detai ls LastModified Time None Recorded Concern Status LastModified by Organization Details LastModified Time None Recorded Advance Directives Directive None Recorded Payers Encounter Date Sequence Insurance Name Policy Number Policy Alvarado Covered Member ID Alvarado Member ID Guarantor Name 04/10/2022 1 [facility] - DOS PRIOR TO 2022 - DUAL ELIGIBLE (MEDICARE REPLACEMENT/ADV ANTAGE - HMO) Nicolette Montoya [id number] Nicolette Montoya Notes Date Note Type Note Provider Name and Address Organization Details Recorded Time 04/10/2022 text/html HPI: Member complains of 3 days swelling of bilat lower extremities, starting with bilat feet, and now extending up to lower leg/calf area, and member reports blackened second toe on right foot, and feet are painful, warm to the touch, itchy, and red. Allergies include penicillin, codeine, morphine, clarithromycin, demerol, and dilaudid. .................. .................. .................. .................. .................. .................. .................. ............... CRC Nursing Assessment: Comments: CRC RN did not need further info [facility] HPI:57y with diabetes, COPD, anxiety, depression presenting with progressive edema of BLE and associated pain. no SOB, no CP, no dizziness, no palpitations. BP is high today but pt reports that this is because she is nervous. repeat 144/82. no h/o VTE. no cardiac history. no recent surgery or falls to suggest risk factors for VTE - does smoke. Has a PCP lenka Betancourt........... .................. .................. .................. .................. .................. .................. .................. ..... Newspaper Editor Note: Pt states she has had increasing edema over last three weeks. Pt states her feet and legs are painful but non tender. Pt has no cardiac history that she knows of. Pt states she will call her pcp and be seen in next two days. [facility] consulted. CMP conducted. 12 lead normal. Red flags discussed .................. .................. .................. .................. .................. .................. .................. ............... Disposition: Fulfilled Kathie Gonzales MD [address] [facility],[address], [place], [phone], [employer] 04/10/2022 19:23:16 OBGyn Episode No OBEpisode recorded.
[2024-06-12 10:04] LABS: MANUAL DIFF FLAG NO
[2024-06-12 10:10] LABS: Basophils Absolute Auto 0.1 X10*3/uL (0.0-0.2); Basophils Percent Auto 0.6 % (0-2); Eosinophils Absolute Auto 0.1 X10*3/uL (0.0-0.4); Eosinophils Percent Auto 0.9 % (0-4); Hematocrit 39.4 % (37.0-47.0); Hemoglobin 13.1 g/dl (12.0-16.0); Imm Gran Abs Auto 0.03 X10*3/uL (0.00-0.03); Imm Gran Pct Auto 0.3 % (0.0-0.4); Lymphocytes Absolute Auto 2.1 X10*3/uL (1.2-4.9); Lymphocytes Percent Auto 20.7 % (20-40); Mean Corpuscular HGB Conc 33.2 g/dl (31.0-35.0); Mean Corpuscular Hemoglobin 31.6 pg (27.0-33.0); Mean Corpuscular Volume 95.2 fL (80.0-98.0); Mean Platelet Volume 9.2 fL (9.4-12.3); Monocytes Absolute Auto 0.8 X10*3/uL (0.1-1.2); Monocytes Percent Auto 7.6 % (2-11); Neutrophils Absolute Auto 7.1 x10*3/uL (2.0-8.3); Neutrophils Percent Auto 69.9 % (45-73); Platelet Count 414 X10*3/uL (160-400); Red Blood Count 4.14 X10*6/uL (4.20-5.50); Red Cell Distribution Width 14.6 % (11.0-16.0); White Blood Count 10.2 X10*3/uL (4.8-10.8)
[2024-06-12 10:18] LABS: Estimated Average Glucose 114 mg/dL; Hemoglobin A1c % 5.6 % (<6.0); Total Hemoglobin (HGBA1C) 3451.2176 umol/L
[2024-06-12 11:06] LABS: Alanine Aminotransferase 11 U/L (0-31); Anion Gap 16 (12-20); Aspartate Amino Transferase 25 U/L (5-31); Bilirubin Total 0.9 mg/dL (0.0-1.0); Blood Urea Nitrogen 9 mg/dL (9-16); Calcium 9.1 mg/dL (8.4-10.2); Carbon Dioxide 31 mmol/L (22-29); Chloride 96 mmol/L (96-108); Cholesterol 181 mg/dL (<200); Estimated Glomerular Filt Rate > 60; Glucose Fasting 124 mg/dL (60-99); HDL Cholesterol 77 mg/dL (>40); LDL Cholesterol Calculated 86 mg/dL (<100); Potassium 3.5 mmol/L (3.3-5.1); Sodium 139 mmol/L (135-145); Total Protein 7.4 g/dL (6.5-8.0); Triglycerides 90 mg/dL (<150)
[2024-06-12 11:26] LABS: TSH reflex Free T4 5.53 uIU/mL (0.32-4.0); Vitamin D 25-OH Total 63.1 ng/mL (>30)
[2024-06-12 11:54] LABS: Alkaline Phosphatase 105 U/L (39-117)
[2024-06-12 12:31] LABS: Free T4 (Free Thyroxine) 0.88 ng/dL (0.71-1.85)
[2024-06-12 13:26] LABS: Appearance Urine Turbid; Color Urine DK YELLOW; Glucose Urine UA Negative (Negative); Leukocyte Esterase Urine Negative (Negative); Nitrite Urine Positive (Negative); PH 5.5 (5.0-9.0); Specific Gravity - Urine >= 1.030 (1.005-1.025); UMIC TRIGGER UACC YES; Urine Blood Negative (Negative); Urine Ketones Trace mg/dL (Negative); Urine Protein 100 (2+) mg/dL (Neg-Trace)
[2024-06-12 13:36] LABS: Bacteria Urine 3+ (None Seen); Hyaline Casts Urine 0-2 /LPF (0-2); RBC Urine 0-2 /HPF (0-2); UACC Culture Trigger YES; WBC Urine 0-5 /HPF (0-5)
[2024-06-12 13:57] LABS: Creatinine Urine 525.65 mg/dL
[2024-06-12 14:09] LABS: Microalbum/Creatinine Ratio Ur 148.5 ug/mg cr (<30)
== END 2024-06-12 09:15 | disposition home or self-care (01) ==
LOC: HO.HMGCLDS 09:14
PROVIDERS: PCP Internal Medicine; Visit Provider Internal Medicine
DX: D64.9 Anemia, unspecified (principal); E11.9 Type 2 diabetes mellitus without complications; E55.9 Vitamin D deficiency, unspecified; E78.00 Pure hypercholesterolemia, unspecified
CPT/HCPCS: 36415; 80053; 80061; 81001; 82043; 82306; 82570; 83036; 84439; 84443; 85025

== ENCOUNTER 2024-09-16 13:17 | Outpatient (AMB) | payer OTHER, SELFPAY ==
[2024-09-16 13:18] VITALS: BP 132/76; PULSE 87; O2SAT 96; BMI 32.9
--- NOTE | 2024-09-16 13:18 | MHC.PC.OV ---
Vital Signs 09/16/24 13:18 Height 5 ft Weight 168 lb 8 oz BMI 32.9 BP 132/76 Blood Pressure Location Lt brachial Position Sitting Pulse 87 Pulse Source Pulse Oximeter Pulse Oximetry (%) 96 Oxygen Delivery Method Room Air Intake Visit Reasons: 3M follow up- Labs needed [place] Management Specialist Required: No Accompanied by: Self / Same As Patient Allergies hydromorphone [From DILAUDID] Allergy (Severe, Verified 09/16/24 13:52) HALLUCINATION clarithromycin [CLARITHROMYCIN] Allergy (Intermediate, Verified 09/16/24 13:52) ITCHING codeine [CODEINE] Allergy (Intermediate, Verified 09/16/24 13:52) ITCHING morphine [MORPHINE] Allergy (Intermediate, Verified 09/16/24 13:52) ITCHING, HEADACHE Penicillins [PENICILLINS] Allergy (Intermediate, Verified 09/16/24 13:52) NAUSEA & VOMITING, ABD PAIN NSAIDS (Non-Steroidal Anti-Inflamma Allergy (Unknown, Verified 09/16/24 13:52) not tolerated penicillin V Allergy (Unknown, Verified 09/16/24 13:52) Nausea and Vomiting meperidine [From DEMEROL] Adverse Reaction (Intermediate, Verified 09/16/24 13:52) NAUSEA & VOMITING Lactose intolerance Allergy (Unknown, Uncoded 09/16/24 13:52) Unknown Medication List - Last Reconciled 09/16/24 by Robbie Cronin MD [6 inch grab bar As directed] [12 inch grab bar As directed] acetaminophen 500 mg PO Q6H PRN albuterol sulfate 90 mcg/actuation 2 puffs PO Q6H PRN aspirin 81 mg PO DAILY 90 days atorvastatin 40 mg PO DAILY 90 days [BED PADS 36 x 36 As directed] blood sugar diagnostic ([employer] Ultra Test strips) As directed once a day blood-glucose meter ([employer] Ultra2 Meter) As directed once a day cholecalciferol (vitamin D3) 50 mcg PO DAILY 90 days clonazepam 1 mg PO TID PRN 30 days diphenhydramine HCl (Banophen) 50 mg (2 x 25 mg) PO BEDTIME PRN docusate sodium 100 mg PO DAILY PRN 90 days famotidine 40 mg PO BID 30 days fluticasone propion-salmeterol 250-50 mcg/dose ea inhalation gabapentin 800 mg PO TID 30 days lancets (OneTouch UltraSoft Lancets) As directed once a day lidocaine 5% 1 patch topical DAILY 30 days losartan 25 mg PO DAILY 90 days metformin ER 500 mg PO BEDTIME 90 days miscellaneous medical supply 1 ea miscellaneous DAILY naproxen 375 mg PO BID PRN 30 days nitrofurantoin monohyd/m-cryst 100 mg (Macrobid) 100 mg PO Q12H 5 days nystatin 1 appl topical QID PRN ondansetron HCl 4 mg PO Q8H PRN oxycodone 15 mg PO Q6H PRN 28 days sertraline 25 mg PO DAILY sertraline 200 mg PO DAILY umeclidinium-vilanterol 62.5-25 mcg/actuation (Anoro Ellipta) 1 ea inhalation DAILY zolpidem 10 mg PO BEDTIME PRN 30 days Tobacco use date assessed: 09/16/24 Dental Screening Dental Screen Date: 09/16/24 Did you have a dental visit in the last 12 months?: No Did you have a dental problem in the last 6 months where you did not have access to dental care?: No Was dental information given to patient?: No HPI 3M follow up- Labs needed HPI Details Patient comes in today for her follow up visit States that she came down with a stomach virus last week but is feeling a lot better now States that she still has recurrent cough and congestion (chronic) and has been using her inhalers regularly as prescribed and has her nebulizer to use when needed She admits that she is still smoking and is still actively trying to quit She denies any headaches or dizziness Denies any chest pains, no increased shortness of breath No nausea /vomiting, no abdominal pain No change in bowel habits noted States that her chronic pains remain adequately controlled on her current medications She does not need her pain meds refilled at this time but needs a few other Rx refilled She was not able to get her previously ordered labs done prior to her appointment today [facility] Medical History COPD (chronic obstructive pulmonary disease) Bilateral primary osteoarthritis of knee Obesity (BMI 30-39.9) Smoker Depression Post traumatic stress disorder (PTSD) Anxiety Insomnia Psoriasis Constipation GERD without esophagitis Vitamin D deficiency Sleep apnea Osteoarthritis, foot, localized Degenerative arthritis of knee, bilateral Elevated LFTs Central retinal vein occlusion with macular edema of right eye Migraine Lumbosacral spondylosis without myelopathy Pulmonary emphysema Elevated blood pressure reading Pure hypercholesterolemia Diabetes mellitus Lumbar degenerative disc disease Headache Surgical History History of esophagogastroduodenoscopy (EGD) Hx of colonoscopy History of surgery History of total abdominal hysterectomy and bilateral salpingo-oophorectomy History of umbilical hernia repair History of inguinal hernia repair History of left oophorectomy Family History Father Medical history unknown Mother Lung cancer Brother Lung cancer Brother Liver cancer Other Mental health problem Substance abuse Social History Housing: Apartment Alcohol intake: current Alcohol intake frequency: holidays/special occasions only Patient Tobacco Use Status: Current everyday Tobacco user Tobacco use type: Cigarette Cigarette Packs Per Day: 0.5 Cigarettes Per Day: 10 e-Cigarette/Vaping Use: Never Used Second Hand Smoke Exposure: Yes service: No Current occupational status: disabled Cognitive needs: No Hearing needs: No Vision needs: Yes (glasses) Questionnaire PHQ-9 Over the last 2 weeks, how often have you been bothered by any of the following problems? 1. Little interest or pleasure in doing things: several days 2. Feeling down, depressed, or hopeless: several days 3. Trouble falling or staying asleep, or sleeping too much: several days 4. Feeling tired or having little energy: several days 5. Poor appetite or overeating: several days 6. Feeling bad about yourself - or that you are a failure or have let yourself or your family down: several days 7. Trouble concentrating on things, such as reading the newspaper or watching television: not at all 8. Moving or speaking so slowly that other people could have noticed. Or the opposite - being so fidgety or restless that you have been moving around a lot more than usual: not at all 9. Thoughts that you would be better off or of hurting yourself in some way: not at all Total score: 6 Depression Screening Interpretation: Positive Depression Screening Follow-up: Existing condition and In treatment Depression Screening Done: Yes 19255 - PHQ-9 Billing: Yes Source: Developed by Drs. Rommel Desir, Dani Romero and colleagues, with an educational juana from [employer]. Thrive Questionnaire Date Thrive assessed: 09/16/24 I am a: Patient What is your living situation today?: I have a steady place to live Within the past 12 months, did the food you bought not last and you didn't have the money to get more?: Never true Within the past 12 months, did you worry whether your food would run out before you got money to buy more?: Never true Do you have trouble paying for medicines?: No Do you have trouble getting transportation to medical appointments?: No Do you have trouble paying your heating and electricity bill?: No Do you have trouble taking care of your child, family member or friend?: No Do you have trouble with day-to-day activities such as bathing, preparing meals, shopping, managing finances, etc.?: No Are you currently unemployed and looking for a job?: No Are you interested in more education?: No Please select the resources that you would like help with: None Currently or been in a relationship where the following occur: No concerns reported THRIVE Score: 0 AUDIT C Alcohol Use Questionnaire (AUDIT-C) 1. How often do you have a drink containing alcohol?: Never 3. How often do you have six or more drinks on one occasion?: Never Total Score: 0 Score Reviewed/Action Taken: Yes HÉCTOR-7 AMB Questionnaire HÉCTOR-7 Date HÉCTOR - 7 assessed: 09/16/24 Feeling nervous, anxious, or on edge: 0 = Not at all Not being able to stop or control worryin = Not at all Worrying too much about different things: 0 = Not at all Trouble relaxin = Not at all Being so restless that it is hard to sit still: 0 = Not at all Becoming easily annoyed or irritable: 0 = Not at all Feeling afraid as if something awful might happen: 0 = Not at all Total HÉCTOR-7 score (0-4 normal; 5-9 mild; 10-14 moderate; 15-21 severe): 0 Source: Developed by Marlene Montesinos Kurt Kroenke and colleagues, with an educational juana from [employer]. Review of Systems Const Denies chills, Reports fatigue, Denies fever(s) and Denies headache(s) ENT Denies dysphagia, Denies dizziness, Denies headache(s), Denies neck pain, Denies odynophagia and Denies sore throat Card Denies chest pain, Denies palpitations and Reports dyspnea on exertion (mild) Resp Reports chest congestion (mild), Reports cough (recurrent, non-productive), Reports dyspnea on exertion (mild) and Denies wheezing GI Denies abdominal pain, Denies constipation, Denies dysphagia, Denies diarrhea, Denies nausea, Denies odynophagia and Denies vomiting Denies difficulty voiding, Denies dysuria and Denies urinary urgency Musc Details: increased pain over her right big toe Reports back pain (over the lumbar spine - chronic - increasing lately), Reports arthralgias (over both knees-worse in the left knee) and Denies neck pain Skin/Breast Denies rash Neuro Denies dizziness and Denies headache(s) Psych Denies anxiety Endo Reports fatigue and Denies palpitations Aller/Immun Denies wheezing Physical exam (Primary Care) Vital Signs: Last Vital Signs Pulse 87 09/16/24 13:18 BP 132/76 09/16/24 13:18 Pulse Ox 96 09/16/24 13:18 Oxygen Delivery Method Room Air 09/16/24 13:18 BMI result Body Mass Index 32.9 Tobacco/Smoking Status: Tobacco use Status Tobacco use date assessed 09/16/24 09/16/24 13:26 Patient Tobacco Use Status Current everyday Tobacco 09/16/24 13:26 Tobacco use type Cigarette 09/16/24 13:26 e-Cigarette/Vaping Use Never Used 09/16/24 13:26 PHQ-9: PHQ-9 Score PHQ-9: Total score 6 09/16/24 13:54 Depression Screening Interpretation: Positive Depression Screening Follow-up: Existing condition and In treatment Thrive Assessment: Date of Thrive Assessment Date Thrive assessed 09/16/24 09/16/24 13:26 Currently or been in a relationship where the following occur: No concerns reported Const General: no acute distress and alert HENMT Ears: TM's normal bilaterally and EAC's normal Throat: Yes posterior oropharynx normal and Yes tonsils normal Neck Neck: Yes supple and No lymphadenopathy Thyroid: Thyroid normal Resp Auscultation: no crackles, no rales, rhonchi (occasional) throughout, no wheezes, diminished lung sounds (slightly) bilateral and no bronchial breath sounds Cardio Rate: regular rate Rhythm: regular rhythm Heart sounds: no murmurs GI Palpation (GI): Soft to palpation and nontender Auscultation: normal bowel sounds General: Yes no CVA tenderness Back/Spine/Pelvis Back: no CVA tenderness Thoracic/Lumbar Spine: lumbar spinal tenderness Skin Rashes: no rashes Extrem General: Yes no clubbing, cyanosis or edema Right lower extremity: knee Details: tenderness and crepitus; no swelling and foot Details: tenderness Location: of the great toe Location: at the MTP joint and along the entire digit Left lower extremity: knee Details: tenderness and crepitus; no swelling Coding Level of Care Code Est Pt Level 4 (43717) Complex EM visit Add On G2211 Diagnoses Chronic obstructive pulmonary disease, unspecified COPD type J44.9 COPD type: unspecified COPD Pure hypercholesterolemia E78.00 Type 2 diabetes mellitus without complication, without long-term current use of insulin E11.9 Diabetes mellitus type: type 2 Diabetes mellitus termite control 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 insulin use: without termite control 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 use Diabetes mellitus complication status: without complication Migraine without status migrainosus, not intractable, unspecified migraine type G43.909 Migraine type: unspecified Status migrainosus presence: without status migrainosus Intractability: not intractable Central retinal vein occlusion with macular edema of right eye H34.8110 Elevated blood pressure reading R03.0 Albuminuria R80.9 Lumbosacral spondylosis without myelopathy M47.817 Bilateral primary osteoarthritis of knee M17.0 Hallux rigidus of right foot M20.21 GERD without esophagitis K21.9 Elevated LFTs R79.89 Vitamin D deficiency E55.9 Psoriasis L40.9 Constipation, unspecified constipation type K59.00 Constipation type: unspecified constipation type Insomnia, unspecified type G47.00 Insomnia type: unspecified Anxiety F41.9 Post traumatic stress disorder (PTSD) F43.10 Depression, unspecified depression type F32.9 Depression Type: unspecified Smoker F17.200 Obesity (BMI 30-39.9) E66.9 Additional Codes PHQ-9 - 25527 - PHQ-9 Billing: Yes ([id number]) Assessment & Plan Assessment & Plan (1) COPD (chronic obstructive pulmonary disease): Code(s): J44.9 - Chronic obstructive pulmonary disease, unspecified Category: Medical Qualifiers: COPD type: unspecified COPD Qualified Code(s): J44.9 - Chronic obstructive pulmonary disease, unspecified Plan: Continue Incruse Ellipta 62.5 mcg 1 inhalation QD, Advair Diskus 250-50 mcg 1 inhalation BID and Ventolin HFA 1 to 2 puffs 4 times a day as needed Patient reports that she continues to experience recurrent cough and congestion often and is aware that her symptoms are related to her smoking, which she is currently still doing She is advised to call if her symptoms persist or get worse and she feels that she needs oral prednisone again Follow up with pulmonary (Dr. Vee) at [facility] as scheduled (2) Pure hypercholesterolemia: Code(s): E78.00 - Pure hypercholesterolemia, unspecified Category: Medical Plan: Patient was again not able to get her follow up labs done prior to her appointment today Reinforced low cholesterol diet Continue Atorvastatin 40 mg QD Will recheck her labs and fasting lipids in 3 months for follow-up (3) Diabetes mellitus: Code(s): E11.9 - Type 2 diabetes mellitus without complications Category: Medical Qualifiers: Diabetes mellitus type: type 2 Diabetes mellitus detention insulin use: without detention use Diabetes mellitus complication status: without complication Qualified Code(s): E11.9 - Type 2 diabetes mellitus without complications Plan: She was not able to get her labs done prior to her appointment today Her HgbA1c was at 5.8% when last checked a few months ago (was previously at 5.6%) - goal is <7.0% Reinforced diabetic diet Continue Metformin ER 500 mg QD [place] up with diabetic biomedical engineering aide [place] [facility] [place] (4) Migraine: Code(s): G43.909 - Migraine, unspecified, not intractable, without status migrainosus Category: Medical Qualifiers: Migraine type: unspecified Status migrainosus presence: without status migrainosus Intractability: not intractable Qualified Code(s): G43.909 - Migraine, unspecified, not intractable, without status migrainosus Plan: Stable/controlled Continue Fioricet 50-325-40 mg 3 to 4 times a day as needed (5) Central retinal vein occlusion with macular edema of right eye: Comment: Received VEGF receptor inhibitor therapy (injections) with Avastin from Dr. Myers in [place] Hypercoagulable work ups done came back mostly normal; was also checked for factor V Leiden mutation and prothrombin gene mutation by hematology - both came back negative - recommended only low dose aspirin therapy with no further intervention or work ups at this time Code(s): H34.8110 - Central retinal vein occlusion, right eye, with macular edema Category: Medical Plan: Continue Aspirin 81 mg QD Follow up with ophthalmology as scheduled (6) Elevated blood pressure reading: Code(s): R03.0 - Elevated blood-pressure reading, without diagnosis of hypertension Category: Medical Plan: Reinforced low sodium diet Patient is reminded to continue monitoring her blood pressure regularly for now She is on Losartan 25 mg QD (started by nephrology a couple of years ago) but this is more for her albuminuria although advised that it should also help with his BP and she is to continue on the Rx (7) Albuminuria: Code(s): R80.9 - Proteinuria, unspecified Category: Medical Plan: Continue Losartan 25 mg QD Follow up with nephrology (Dr. Kohli) as scheduled (8) Lumbosacral spondylosis without myelopathy: Comment: Used to see [facility] Chen ([facility]) in the past until he retired a few years ago Code(s): M47.817 - Spondylosis without myelopathy or radiculopathy, lumbosacral region Category: Medical Plan: Reinforced activity and weight-lifting restrictions Continue Gabapentin 800 mg TID and Oxycodone 15 mg every 6 hours as needed for pain Repeat lumbar spine x-rays done in November 2022 revealed mild multilevel degenerative disc disease and bilateral facet arthropathy, slightly increased when compared to the prior radiograph (9) Bilateral primary osteoarthritis of knee: Code(s): M17.0 - Bilateral primary osteoarthritis of knee Category: Medical Plan: X-rays done back in 2014 revealed (+) OA changes in both knees Repeat x-rays of both knees in May 2021 showed (+) osteoarthritis in both knees that are mostly unchanged from previous although the arthritis is slightly worse in the left knee She has been seen by orthopedics and as patient failed to respond to cortisone injections, has been recommended to undergo total left knee arthroplasty by orthopedics - she is still debating on whether to go ahead with surgery or not Follow up with orthopedics as scheduled (10) Hallux rigidus of right foot: Code(s): M20.21 - Hallux rigidus, right foot Category: Medical Plan: She has been recommended surgery (fusion) of her right big toe by podiatry but has been strongly advised to quit smoking before going for surgery - patient remains very hesitant about going for surgery of her right foot Follow up with podiatry as scheduled (11) GERD without esophagitis: Comment: S/P EGD in November 2018 Code(s): K21.9 - Gastro-esophageal reflux disease without esophagitis Category: Medical Plan: Dietary restrictions reinforced Continue Famotidine 40 mg Q HS and Esomeprazole 40 mg QD Follow up with GI as scheduled (12) Elevated LFTs: Code(s): R79.89 - Other specified abnormal findings of blood chemistry Category: Medical Plan: Her LFTs have improved and remained normal on her most previous labs from a few months ago - these were most likely related to her weight Will continue to monitor her LFTs regularly (13) Vitamin D deficiency: Code(s): E55.9 - Vitamin D deficiency, unspecified Category: Medical Plan: Continue Vitamin D3 2000 uinits QD (14) Psoriasis: Comment: Was started on Otezla a few months ago but could not tolerate the Rx - had chest pains and increased low back pain Code(s): L40.9 - Psoriasis, unspecified Category: Medical Plan: Patient could not tolerate Otezla previously Follow up with dermatology as scheduled (15) Constipation: Code(s): K59.00 - Constipation, unspecified Category: Medical Qualifiers: Constipation type: unspecified constipation type Qualified Code(s): K59.00 - Constipation, unspecified Plan: This is most likely opioid-induced Encouraged again on increased oral fluid and dietary fiber Continue Docusate 100 mg QD PRN (16) Insomnia: Code(s): G47.00 - Insomnia, unspecified Category: Medical Qualifiers: Insomnia type: unspecified Qualified Code(s): G47.00 - Insomnia, unspecified Plan: Sleep hygiene reinforced Continue Zolpidem 10 mg Q HS PRN (17) Anxiety: Code(s): F41.9 - Anxiety disorder, unspecified Category: Medical Plan: Continue Clonazepam 1 mg TID PRN (18) Post traumatic stress disorder (PTSD): Code(s): F43.10 - Post-traumatic stress disorder, unspecified Category: Medical Plan: Continue Sertraline at 225 mg (2 x 100 mg + 25 mg) daily - Rx is being managed by psychiatry (19) Depression: Code(s): F32.9 - Major depressive disorder, single episode, unspecified Category: Medical Qualifiers: Depression Type: unspecified Qualified Code(s): F32.9 - Major depressive disorder, single episode, unspecified Plan: Continue Sertraline 225 mg QD Follow up with psychiatry as scheduled - states that she is currently looking for a new psychiatrist or psych provider (20) Smoker: Code(s): F17.200 - Nicotine dependence, unspecified, uncomplicated Category: Social Hx Plan: Patient is counseled again on smoking cessation She has been started on nicotine patches to help her quit smoking (21) Obesity (BMI 30-39.9): Code(s): E66.9 - Obesity, unspecified Category: Medical Plan: Reinforced diet/exercise as tolerated/lose weight Plan Follow up in 3 months Orders: Orders Complete Blood Count Auto Diff 3 Months D64.9 - Anemia, unspecified Lipid Panel 3 Months E78.00 - Pure hypercholesterolemia, unspecified TSH reflex Free T4 3 Months E78.00 - Pure hypercholesterolemia, unspecified UA CC w/rflx Micro + Cult 3 Months R30.0 - Dysuria Vitamin B12 and Folate 3 Months E53.8 - Deficiency of other specified B group vitamins Comprehensive [place]. Panel Fast 3 Months E78.00 - Pure hypercholesterolemia, unspecified Hemoglobin A1c 3 Months E11.9 - Type 2 diabetes mellitus without complications Microalbumin, Random (w Creat) 3 Months E11.9 - Type 2 diabetes mellitus without complications Vitamin D 25-OH Total 3 Months E55.9 - Vitamin D deficiency, unspecified Medications: Refilled losartan 25 mg PO DAILY 90 days 90 tabs 1RF clonazepam 1 mg PO TID 30 days PRN 90 tabs 1RF anxiety F41.9 - Anxiety disorder, unspecified, F43.10 - Post-traumatic stress disorder, unspecified zolpidem 10 mg PO BEDTIME 30 days PRN 30 tabs 2RF insomnia G47.00 - Insomnia, unspecified
--- OUTSIDE RECORDS SUMMARY | 2024-09-16 15:36 | XMS_ITS | Clinical Summary ---
Author Organization [facility] Address [address] [facility] [address] [place] [address] Phone Care Team Providers Care Sieve Maker Name Role Phone Robbie Cronin MD Primary Care Provider [phone] Allergies Active Allergy Reactions Criticality Noted Date Comments Clarithromycin 08/17/2022 Clindamycin 11/24/2022 Other reaction(s): pruritis Codeine 08/17/2022 Hydromorphone 08/17/2022 Meperidine 08/17/2022 Morphine 08/17/2022 Nsaids 08/17/2022 Penicillins Other (see comments) 08/17/2022 Medications albuterol HFA (PROVENTIL HFA;VENTOLIN HFA) 108 (90 Base) MCG/ACT inhaler Inhale 2 puffs every 6 (six) hours if needed for wheezing Active ARIPiprazole (ABILIFY) 2 MG tablet Take 2 mg by mouth 1 (one) time each day Active aspirin (ST MARYANNE) 81 MG EC tablet Take 81 mg by mouth 1 (one) time each day Active atorvastatin (LIPITOR) 40 MG tablet Take 40 mg by mouth 1 (one) time each day Active Vitamin D, Cholecalciferol , 50 MCG (1999 UT) capsule Take 50 mcg by mouth 1 (one) time each day Active clonazePAM (KlonoPIN) 1 MG tablet Take 1 mg by mouth in the morning and 1 mg in the evening. Active diphenhydrAMINE (BENADRYL) 50 MG capsule Take 50 mg by mouth every 6 (six) hours if needed for itching Active docusate sodium (COLACE) 100 MG capsule Take 100 mg by mouth in the morning and 100 mg in the evening. Active famotidine (PEPCID) 40 MG tablet Take 40 mg by mouth in the morning and 40 mg in the evening. Active Fluticasone Propionate, Inhal, 250 MCG/ACT aerosol powder Inhale 250 mcg Activ e gabapentin (NEURONTIN) 800 MG tablet Take 800 mg by mouth in the morning and 800 mg in the evening and 800 mg before bedtime. Active ibuprofen (ADVIL,MOTRIN) 600 MG tablet Take 600 mg by mouth 4 (four) times a day if needed for mild pain Active Lidocaine 0.5 % gel Apply topically Active metFORMIN (GLUCOPHAGE) 500 MG tablet Take 500 mg by mouth at bed time Active nystatin (MYCOSTATIN) cream Apply topically 2 (two) times a day Active ondansetron (ZOFRAN) 4 MG tablet Take 4 mg by mouth every 8 (eight) hours if needed for nausea or vomiting Active sertraline (ZOLOFT) 25 MG tablet Take 25 mg by mouth 1 (one) time each day Active Sertraline HCl 200 MG capsule Take 100 mg by mouth 2 (two) times a day Active Umeclidinium [place] 62.5 MCG/ACT aerosol powder Inhale 62.5 mcg 1 (one) time each day Active Umeclidinium-Vi lanterol (Anoro Ellipta) 62.5-25 MCG/ACT aerosol powder Inhale Activ e zolpidem (AMBIEN) 10 MG tablet Take 10 mg by mouth at night if needed for sleep Active losartan (Cozaar) 25 MG tabletIndicatio ns:Proteinuria, not otherwise specified Take 1 tablet (25 mg total) by mouth 1 (one) time each day 30 tablet 11 4 Active Active Problems Problem Noted Date Diagnosed Date Type 2 diabetes mellitus wit h diabetic chronic kidney disease 05/23/2023 Proteinuria 11/24/2022 Essential (primary) hypertension 11/24/2022 Depressive disorder 04/22/2017 05/22/2023 Gastroesophageal reflux disease 04/22/2017 05/22/2023 History of malignant neoplasm of ovary 7 05/22/2023 Psoriasis 04/22/2017 05/22/2023 Tobacco user 12/11/2016 05/22/2023 Chronic obstructive pulmonary disease 12/08/2016 05/22/2023 Nodule of lung 12/08/2016 05/22/2023 Obstructive sleep apnea syndrome 12/08/2016 05/22/2023 Resolved Problems Problem Noted Date Diagnosed Date Resolved Date Menorrhagia 11/24/2022 11/24/2022 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 11/24/2022 11/24/2022 Immunizations Name Administration Dates Next Due Pneumococcal Polysaccharide 02/21/2012 Family History Medical History Relation Comments Cancer Brother Cancer Mother Relation Status Comments Brother Mother Social History Tobacco Use Types Packs/Day Years Used Date Smoking Tobacco: Every Day Cigarettes Smokeless Tobacco: Never Tobacco Cessation:Ready to Q uit: Not Asked; Counseling Given: Not Answered Alcohol Use Standard Drinks/Week Comments Yes 0 (1 standard drink = 0.6 oz pur e alcohol) Comments Unknown Sex and Gender Information Value Date Recorded Sex Assigned at Not on file Legal Sex Female 8:20 AM EST Gender Identity Not on file Sexual Orientation Not on file Last Filed Vital Signs Vital Sign Reading Time Taken Comments Blood Pressure 145/80 05/23/2023 1:53 PM EST Pulse 86 05/23/2023 1:53 PM EST Temperature - - Respiratory Rate - - Oxygen Saturation 96% 05/23/2023 1:53 PM EST Inhaled Oxygen Concentration - - Weight 81.4 kg (179 lb 6.4 oz) 05/23/2023 1:53 P M EST Height - - Body Mass Index - - Plan of Treatment Health Maintenance Due Date Last Done Comments Breast Cancer Screening 1965 Hepatitis B Vaccine (1 of 3 - 19+ 3-dose series) 02/26 Pneumococcal Vaccine: Pediat rics (0 to 5 Years) and At-Risk Patients (6 to 64 Years) (2 of 2 - PCV) 02/20/2013 02/21/2012 Colorectal Cancer Screening: Annual FOBT 2014 Colorectal Cancer Screening: Colonoscopy 2014 Colorectal Cancer Screening: Sigmoidoscopy 2014 Diabetes: Hemoglobin A1C 05/23/2023 Diabetes: Ophthalmology Exam 05/23/2023 Diabetes: Pedal Pulse Checked 05/23/2023 Diabetes: Sensory Foot Exam 05/23/2023 Diabetes: Visual Foot Exam 05/23/2023 Influenza Vaccine (Season Ended) 2025 Insurance [facility] MCR ([id number]) [facility] MCR ([id number]) Care Teams Sieve Maker Relationship Specialty Start Date End Date Robbie Cronin MD [address] [place] [address] PCP - General Internal Medicine 05/24/22
--- OUTSIDE RECORDS SUMMARY | 2024-09-16 15:36 | XMS_ITS | Clinical Summary ---
Author Organization [facility] it Address [address] [place] [address] Care Team Providers Care Adjunct Psychology Professor Name Role Phone Robbie Cronin MD Primary Care Provider Allergies Active Allergy Reactions Criticality Noted Date Comments Clindamycin 12/08/2016 Codeine 12/08/2016 Hydromorphone 12/08/2016 Meperidine 12/08/2016 Morphine 12/08/2016 Penicillins 12/08/2016 Medications bisacodyL 5 mg tablet Take 5 mg by mouth daily as needed. Active toothpaste (DENTRIFICES DENT) Place onto teeth. Active ibuprofen (IBU) 600 mg tablet Take 600 mg by mouth every 6 hours as needed. Active multivit-min/iron /folic acid/K (ADULTS MULTIVITAMIN ORAL) Take by mouth. Active aspirin 81 mg chewable tablet Take 81 mg by mouth daily. Active butalbital-acetam inophen-caffeine (FIORICET, ESGIC) 50-325-40 mg per tablet Take 1 tablet by mouth every 4 hours as needed. Active cholecalciferol (VITAMIN D-3) 50 mcg (2,000 unit) capsule Take by mouth. Active clonazePAM (KlonoPIN) 1 mg tablet Take 1 mg by mouth 3 times daily as needed. Active gabapentin (NEURONTIN) 800 mg tablet Take 800 mg by mouth 3 times daily. Active oxyCODONE (ROXICODONE) 15 mg immediate release tablet Take 15 mg by mouth every 4 hours as needed. Active sertraline (ZOLOFT) 100 mg tablet Take 100 mg by mouth daily. Active simvastatin (ZOCOR) 20 mg tablet Take 1 tablet (20 mg total) by mouth at bedtime. Active tiZANidine (ZANAFLEX) 4 mg tablet Take 4 mg by mouth 3 times daily. Active zolpidem (AMBIEN) 10 mg tablet Take by mouth at bedtime as needed. Active albuterol HFA (PROAIR HFA ; PROVENTIL HFA ; VENTOLIN HFA) 90 mcg/actuation inhaler Inhale 2 puffs by mouth every 4 (four) hours if needed for wheezing. 8.5 g 2 01/14/20 25 Active Active Problems Problem Noted Date Diagnosed Date Depression 04/22/2017 GERD (gastroesophageal reflux disease) 7 Psoriasis 04/22/2017 Chronic obstructive pulmonary disease 12/08/2016 Obstructive sleep apnea syndrome 12/08/2016 Pulmonary nodule 12/08/2016 Surgical History Surgery Date Site/Laterality Comments APPENDECTOMY PROCEDURE: [place] APPENDECTOMY HYSTERECTOMY PROCEDURE: HISTORICAL HYSTERECTOMY Medical History Medical History Date Comments History of ovarian cancer 04/22/2017 DX:His tory of ovarian cancer GERD (gastroesophageal reflux disease) 04/22/2017 DX:GERD (gastroesophageal reflux disease) Depression 04/22/2017 DX:Depression Psoriasis 04/22/2017 DX:Psoriasis Chronic obstructive pulmonar y disease (CMS/HCC) 12/08/2016 DX:Chronic obstructive pulmo nary disease (HCC) Pulmonary nodule 12/08/2016 DX:Pulmonary no dule Obstructive sleep apnea syndrome 12/08/2016 DX:Obstructive sleep apnea syndrome Tobacco user 12/11/2016 DX:Tobacco user Social History Tobacco Use Types Packs/Day Years Used Date Smoking Tobacco: Every Day Cigarettes Smokeless Tobacco: Never Alcohol Use Standard Drinks/Week Comments No 0 (1 standard drink = 0.6 oz pur e alcohol) Comments Unknown Sex and Gender Information Value Date Recorded Sex Assigned at Not on file Legal Sex Female 1:36 AM EST Gender Identity Not on file Sexual Orientation Not on file Obstetrics History Last Filed Vital Signs Vital Sign Reading Time Taken Comments Blood Pressure 142/100 03/26/2024 10:25 AM EDT Sitting L Arm Pulse 100 03/26/2024 10:25 AM EDT Temperature - - Respiratory Rate - - Oxygen Saturation - - Inhaled Oxygen Concentration - - Weight 80.7 kg (177 lb 12.8 oz) 03/26/2024 10:25 AM EDT Height 152.4 cm (5') 03/26/2024 10:25 AM EDT Body Mass Index 34.72 03/26/2024 10:25 AM EDT Plan of Treatment Upcoming Encounters Date Type Department Care Team (Late st Contact Info) Description 09/29/2024 1:15 PM EDT Office Visit Pulmonolgy - [place] [address] [facility] [address] [place] [id number] Dede Vee MD [address] [facility] [address] [place] [address] Health Maintenance Due Date Last Done Comments Breast Cancer Screening 1965 DTaP,Tdap,and Td Vaccines (1 - Tdap) 02/27/1984 Hepatitis B Vaccines (1 of 3 - 19+ 3-dose series) 02/27/1984 Pneumococcal Vaccine: 50+ Ye ars (1 of 2 - PCV) 02/27/1984 Pneumococcal Vaccine: Pediat rics (0 to 5 Years) and At-Risk Patients (6 to 64 Years) (1 of 2 - PCV) 02/27/1984 Cervical Cancer Screening: P ap Smear 1986 Zoster Vaccines (1 of 2) 2015 Cholesterol Screening (Lipid Panel) 05/21/2022 Colorectal Cancer Screening: Colonoscopy 05/21/2022 Depression Screening 05/21/2022 HIV Screening 05/21/2022 Hepatitis C Screening 05/21/2022 Social Influencers of Health Screening 05/21/2022 COVID-19 Vaccine ( - 2023-2 5 season) 2024 Influenza Vaccine (#1) 2024 RSV Immunization Patients 60 + Years Old (1 - 1-dose 75+ series) 02/27/2040 HIB Vaccines Aged Out No longer eligi ble based on patient's age to complete this topic HPV Vaccines Aged Out No longer eligi ble based on patient's age to complete this topic Hepatitis A Vaccines Aged Out No long er eligible based on patient's age to complete this topic IPV Vaccines Aged Out No longer eligi ble based on patient's age to complete this topic MMR Vaccines Aged Out No longer eligi ble based on patient's age to complete this topic Meningococcal ACWY Vaccine Aged Out N o longer eligible based on patient's age to complete this topic Meningococcal B Vacine Aged Out No lo nger eligible based on patient's age to complete this topic RSV Immunization Patients Un sam 20 months Aged Out No longer eligible b ased on patient's age to complete this topic Varicella Vaccines Aged Out No longer eligible based on patient's age to complete this topic Care Teams Adjunct Psychology Professor Relationship Specialty Start Date End Date Robbie Cronin MD [address] [place] [address] [address] [place] PCP - General Internal Medicine 05/08/17
--- OUTSIDE RECORDS SUMMARY | 2024-09-16 15:36 | XMS_ITS | Data Portability ---
Author Organization [facility] [employer] [place], [place] in [facility] Address [address] [place] [address] Care Team Providers Care Aoc Airspace Control Officer Name Role Phone [facility] Referring Provider [phone] Assessment No assessment recorded. Plan of Treatment Reminders Order Date Submit Date Provider Last Modified By Organization Details Last Modified Time Details Appointments None recorded. Lab cmp, whole blood + chapis [facility], [address] [place] [address], [place], [address], 2 21:35:35 Referral None recorded. Procedures None [...] and Address Organization Details Recorded Time 8681 Product containin g penicilli n (product) medicatio n Not available Not available Not available 04/15/2024 64170 8001 SNOMED Not Available [facility] - production 4 03:45:59 Medications Name Sig Start Date Stop Date Status Note LastModified by Organization Details LastModified Time atorvastatin 40 mg tablet TAKE 1 TABLET BY MOUTH DAILY active Not Available Not Available Not Available prednisone 10 mg tablet TAKE 4 TABLETS BY MOUTH DAILY X2DAYS TAKE 3 TABLETS DAILY [id number] TAKE 2 TABLETS DAILY X2DAYS TAKE 1 [...] Diagnosis/Indication Diagnosis SNOMED-CT Code Diagnosis ICD10 Code Diagnosis Note 4808 Kathie Gonzales MD Main - [address] [address] 04/10/2022 18:16:17 04/10/2022 19:10:49 Bilateral lower limb edema [id number] R60.0 57y female smoker with 3 weeks progressiv e edema without any associated sxs other than discomfort in her lower extremitie s. Equal bilaterall y, no h/o VTE, nl pulse, no recent events to suggest increased risk of VTE. CMP shows very mildly elevated LFTs, na 146, but otherwise WNL. No Chest pain or palpitatio ns. EKG without sign of ongoing or recent ischemic event. Pt plans to call PCP's office tomorrow ([facility]) for evaluation at next available. would recommend pt be seen this week if possible. Counseled for any worsening of symptoms or new onset chest pain, palpitatio ns, shortness of breath to proceed to ER or call us back. Health Concerns Section Related Observation LastModified by Organization Detai ls LastModified Time None Recorded Concern Status LastModified by Organization Details LastModified Time None Recorded Advance Directives Directive None Recorded Payers Encounter Date Sequence Insurance Name Policy Number Policy Alvarado Covered Member ID Alvarado Member ID Guarantor Name 04/10/2022 1 [facility] - DOS PRIOR TO 2022 - DUAL ELIGIBLE (MEDICARE REPLACEMENT/ADV ANTAGE - HMO) Nicolette Montoya [id number] Nicolette Montoya Notes Date Note Type Note [...] CRC RN did not need further info [facility] HPI:57y with diabetes, COPD, anxiety, depression presenting with progressive edema of BLE and associated pain. no SOB, no CP, no dizziness, no palpitations. BP is high today but pt reports that this is because she is nervous. repeat 144/82. no h/o VTE. no cardiac history. no recent surgery or falls to suggest risk factors for VTE - does smoke. Has a PCP w sanjay Betancourt........... .................. .................. .................. .................. .................. .................. .................. ..... Ripsaw Grader Note: Pt states she has had increasing edema over last three weeks. Pt states her feet and legs are painful but non tender. Pt has no cardiac history that she knows of. Pt states she will call her pcp and be seen in next two days. [facility] consulted. CMP conducted. 12 lead normal. Red flags discussed .................. .................. .................. .................. .................. .................. .................. ............... Disposition: Fulfilled Kathie Gonzales MD [address] [place] [address],[address] [facility], [place], [address], [place] 04/10/2022 19:23:16 OBGyn Episode No OBEpisode recorded.
== END 2024-09-16 13:59 | disposition home or self-care (01) ==
LOC: HO.HMCH 13:17
PROVIDERS: PCP Internal Medicine; Visit Provider Internal Medicine
DX: J44.9 Chronic obstructive pulmonary disease, unspecified (principal); E78.00 Pure hypercholesterolemia, unspecified; E11.9 Type 2 diabetes mellitus without complications; G43.909 Migraine, unspecified, not intractable, without status migrainosus; H34.8110 Central retinal vein occlusion, right eye, with macular edema; R03.0 Elevated blood-pressure reading, without diagnosis of hypertension; R80.9 Proteinuria, unspecified; M47.817 Spondylosis without myelopathy or radiculopathy, lumbosacral region; M17.0 Bilateral primary osteoarthritis of knee; M20.21 Hallux rigidus, right foot; K21.9 Gastro-esophageal reflux disease without esophagitis; R79.89 Other specified abnormal findings of blood chemistry; E55.9 Vitamin D deficiency, unspecified; L40.9 Psoriasis, unspecified; K59.00 Constipation, unspecified; G47.00 Insomnia, unspecified; F41.9 Anxiety disorder, unspecified; F43.10 Post-traumatic stress disorder, unspecified; F32.9 Major depressive disorder, single episode, unspecified; F17.200 Nicotine dependence, unspecified, uncomplicated

== ENCOUNTER → 2024-09-16 13:17 | Outpatient (BNVA) | payer OTHER, SELFPAY | PROVIDERS: PCP Internal Medicine; Visit Provider Internal Medicine | DX: J44.9 Chronic obstructive pulmonary disease, unspecified (principal); E78.00 Pure hypercholesterolemia, unspecified; E11.9 Type 2 diabetes mellitus without complications; H34.8110 Central retinal vein occlusion, right eye, with macular edema; R03.0 Elevated blood-pressure reading, without diagnosis of hypertension; R80.9 Proteinuria, unspecified; M47.817 Spondylosis without myelopathy or radiculopathy, lumbosacral region; M17.0 Bilateral primary osteoarthritis of knee; M20.21 Hallux rigidus, right foot; K21.9 Gastro-esophageal reflux disease without esophagitis; R79.89 Other specified abnormal findings of blood chemistry; E55.9 Vitamin D deficiency, unspecified; L40.9 Psoriasis, unspecified; K59.00 Constipation, unspecified; F41.9 Anxiety disorder, unspecified; F43.10 Post-traumatic stress disorder, unspecified; F32.9 Major depressive disorder, single episode, unspecified; E66.9 Obesity, unspecified; F17.200 Nicotine dependence, unspecified, uncomplicated | CPT/HCPCS: 96127; 99212 ==

== ENCOUNTER 2024-12-17 12:57 | Outpatient (REF) | payer OTHER, SELFPAY ==
--- OUTSIDE RECORDS SUMMARY | 2024-12-17 13:27 | XMS_ITS | Data Portability ---
Author Organization [facility] [employer] [facility] Address [address] [place] [address] Care Team Providers Care Fabricator Special Items Name Role Phone [facility] Referring Provider [phone] Assessment No assessment recorded. Plan of Treatment Reminders Order Date Submit Date Provider Last Modified By Organization Details Last Modified Time Details Appointments None recorded. Lab cmp, whole blood + chapis 022 022 [facility], [address] [place] [address], [id number] 2 21:35:35 Referral None recorded. Procedures None [...] Not available Not available Not available 04/15/2024 [id number] SNOMED Not Available [facility] - production 4 03:45:59 Medications Name Sig Start Date Stop Date Status Note LastModified by Organization Details LastModified Time atorvastatin 40 mg tablet TAKE 1 TABLET BY MOUTH DAILY active Not Available Not Available Not Available prednisone 10 mg tablet TAKE 4 TABLETS BY MOUTH DAILY X2DAYS TAKE 3 TABLETS DAILY [id number] TAKE 2 TABLETS DAILY X2DAYS TAKE 1 [...] mm[Hg] 162 mm[Hg] 98 mm[Hg] Not Available [facility] - production 2 18:59:25 Social History None recorded. Functional Status [...] Note 4808 Kathie Gonzales MD Main - [address] [address] 04/10/2022 18:16:17 04/10/2022 19:10:49 Bilateral lower limb edema [id number] R60.0 57y female smoker with 3 weeks [...] Pt plans to call PCP's office tomorrow ([facility]) for evaluation at next available. would recommend [...] Recorded Advance Directives Directive None Recorded Payers Insurance Date Sequence Insurance Name Policy Number Policy Alvarado Covered Member ID Alvarado Member ID Guarantor Name 08/12/2023 1 [facility] - DOS PRIOR TO 2022 - DUAL ELIGIBLE (MEDICARE REPLACEMENT/ADV ANTAGE - HMO) Nicolette Montoya [id number] Nicolette Montoya 08/12/2023 1 [facility] - DOS ON OR AFTER 2022 - DUAL ELIGIBLE - PRISON OPTIONS AND ONE CARE (MEDICARE REPLACEMENT/ADV ANTAGE - HMO) Nicolette Montoya [id number] Nicolette Montoya Notes Date Note Type Note [...] CRC RN did not need further info [facility] HPI:57y with diabetes, COPD, anxiety, depression presenting [...] .................. .................. .................. .................. .................. .................. ..... Leather Leveler Note: Pt states she has had increasing edema over last three weeks. Pt states her feet and legs are painful but non tender. Pt has no cardiac history that she knows of. Pt states she will call her pcp and be seen in next two days. C consulted. CMP conducted. 12 lead normal. Red flags discussed .................. .................. .................. .................. .................. .................. .................. ............... Disposition: Fulfilled Kathie Gonzales MD [address] [facility],[address], [place], [address], [place]INT[place] - vWiseRUTHIE SHARP 04/10/2022 19:23:16 OBGyn Episode No OBEpisode recorded.
--- OUTSIDE RECORDS SUMMARY | 2024-12-17 13:27 | XMS_ITS | Clinical Summary ---
Author Organization [address] [facility] Address [address] [place] [address] Phone Care Team Providers Care Cutter Barrel Drum Name Role Phone Robbie Cronin MD Primary Care Provider + [phone] Allergies Active Allergy Reactions Criticality Noted Date [...] if needed for wheezing. 8.5 g 2 5 01/14/20 25 Active Active Problems Problem Noted Date Diagnosed Date Depression 04/22/2017 GERD (gastroesophageal reflux disease) 7 Psoriasis 04/22/2017 Chronic obstructive pulmonar y disease (CMS/HCC V24, CMS/HCC V28) 12/08/2016 Obstructive sleep apnea syndrome 12/08/2016 Pulmonary nodule 12/08/2016 Surgical History Surgery Date Site/Laterality Comments APPENDECTOMY PROCEDURE: [place] APPENDECTOMY HYSTERECTOMY PROCEDURE: HISTORICAL HYSTERECTOMY Medical History Medical History Date Comments History of ovarian cancer 04/22/2017 DX:His tory of ovarian cancer GERD (gastroesophageal reflux disease) 04/22/2017 DX:GERD (gastroesophageal reflux disease) Depression 04/22/2017 DX:Depression Psoriasis 04/22/2017 DX:Psoriasis Chronic obstructive pulmonar y disease (CMS/HCC V24, CMS/HCC V28) 12/08/2016 DX:Chronic obstructive pulm onary disease (HCC) Pulmonary nodule 12/08/2016 DX:Pulmonary no [...] 03/26/2024 10:25 AM EDT Plan of Treatment Health Maintenance Due Date [...] - 2023-2 5 season) 2024 Influenza Vaccine (Season Ended) 2025 RSV Immunization Adult Patie nts (1 - 1-dose 75+ series) 02/27/2040 HIB [...] age to complete this topic Meningococcal B Vaccine Aged Out No l onger eligible based on patient's age to complete this topic RSV Immunization Patients Un sam 20 months Aged Out No longer eligible b ased on patient's age to complete this topic Varicella Vaccines Aged Out No longer eligible based on patient's age to complete this topic Insurance [facility] Member Subscriber Plan / Payer (Ef fective 2016-Present) Name:Nicolette Montoya Relation to Subscriber:Self Name:Nicolette Montoya Yojana Payer ID:[id number] Group ID:[id number] Type:Not on file Address: [place] [address] [address] [address] Care Teams Cutter Barrel Drum Relationship Specialty Start Date End Date Robbei Cronin MD [address] [place] [address] [address] CINTIA Betancourt PCP - General Internal Medicine 05/08/17
--- OUTSIDE RECORDS SUMMARY | 2024-12-17 13:27 | XMS_ITS | Clinical Summary ---
Author Organization [facility] Address [address] [facility] [address] [place] [address] Phone Care Team Providers Care System Support Analyst Name Role Phone Robbie Cronin MD Primary Care Provider [phone] Allergies Active Allergy Reactions Criticality Noted Date [...] 2 (two) times a day Active Umeclidinium [place] 62.5 MCG/ACT aerosol powder Inhale 62.5 mcg [...] tumor omental implants absent 11/24/2022 11/24/2022 Immunizations Immunization Administration Dates Next Due Pneumococcal Polysaccharide 02/21/2012 [...] - 19+ 3-dose series) 02/26 Pneumococcal Vaccine: 50+ Years (2 of 2 - PCV) 013 02/21/2012 Colorectal Cancer Screening: Annual FOBT 2014 Colorectal Cancer Screening: Colonoscopy 2014 Colorectal Cancer Screening: Sigmoidoscopy 2014 Diabetes: Hemoglobin A1C 05/23/2023 Diabetes: Ophthalmology Exam 05/23/2023 Diabetes: Pedal Pulse Checked 05/23/2023 Diabetes: Sensory Foot Exam 05/23/2023 Diabetes: Visual Foot Exam 05/23/2023 Influenza Vaccine (Season Ended) 2025 Pneumococcal Vaccine: Peds ( 0 to 5 Years) and At-Risk Patients (6 to 49 Years) Discontinued 02/21/2012 Insurance [facility] MCR ([id number]) [facility] ([id number]) Care Teams System Support Analyst Relationship Specialty Start Date End Date Robbie Cronin MD [address] [place] [address] PCP - General Internal Medicine 05/24/22
[2024-12-17 16:01] LABS: MANUAL DIFF FLAG NO
[2024-12-17 16:12] LABS: Hematocrit 30.8 % (37.0-47.0); Hemoglobin 10.2 g/dl (12.0-16.0); Imm Gran Abs Auto 0.03 X10*3/uL (0.00-0.03); Imm Gran Pct Auto 0.4 % (0.0-0.4); Lymphocytes Absolute Auto 1.9 X10*3/uL (1.2-4.9); Mean Corpuscular HGB Conc 33.1 g/dl (31.0-35.0); Mean Corpuscular Hemoglobin 32.5 pg (27.0-33.0); Mean Corpuscular Volume 98.1 fL (80.0-98.0); NRBC Abs Auto 0.000 X10*3/uL (0.0-0.012); NRBC Pct Auto 0.0 /100WBC (0.0-0.2); Platelet Count 275 X10*3/uL (160-400); Red Blood Count 3.14 X10*6/uL (4.20-5.50); White Blood Count 8.1 X10*3/uL (4.8-10.8)
[2024-12-17 16:25] LABS: Alanine Aminotransferase 9 U/L (0-31); Albumin Level 3.9 g/dL (3.5-5.0); Alkaline Phosphatase 88 U/L (39-117); Anion Gap 16 (12-20); Aspartate Amino Transferase 28 U/L (5-31); Blood Urea Nitrogen 10 mg/dL (9-16); Calcium 9.2 mg/dL (8.4-10.2); Carbon Dioxide 31 mmol/L (22-29); Chloride 93 mmol/L (96-108); Cholesterol 162 mg/dL (<200); Estimated Glomerular Filt Rate > 60; HDL Cholesterol 78 mg/dL (>40); Hemoglobin A1C 84.5387 umol/L; Potassium 3.2 mmol/L (3.3-5.1); Sodium 137 mmol/L (135-145); Total Hemoglobin (HGBA1C) 2918.0700 umol/L; Total Protein 7.1 g/dL (6.5-8.0); Triglycerides 87 mg/dL (<150)
[2024-12-17 16:33] LABS: Microalbum/Creatinine Ratio Ur 120.6 ug/mg cr (<30)
[2024-12-17 16:56] LABS: Folate 3.5 ng/mL (> or = 4.0); Vitamin B12 666 pg/mL (200-900)
[2024-12-17 17:01] LABS: Appearance Urine Clear; Glucose Urine UA Negative (Negative); PH 6.0 (5.0-9.0); Specific Gravity - Urine 1.025 (1.005-1.025); UMIC TRIGGER UACC YES
[2024-12-17 17:35] LABS: UACC Culture Trigger YES
[2024-12-17 17:57] LABS: Free T4 (Free Thyroxine) 1.00 ng/dL (0.71-1.85)
== END 2024-12-17 12:58 | disposition home or self-care (01) ==
LOC: HO.HMGCLDS 12:57
PROVIDERS: PCP Internal Medicine; Visit Provider Internal Medicine
DX: D64.9 Anemia, unspecified (principal); E78.00 Pure hypercholesterolemia, unspecified; E11.9 Type 2 diabetes mellitus without complications; E55.9 Vitamin D deficiency, unspecified; E53.8 Deficiency of other specified B group vitamins; R30.0 Dysuria; R32 Unspecified urinary incontinence
CPT/HCPCS: 36415; 80053; 80061; 81001; 81003; 82043; 82306; 82570; 82607; 82746; 83036; 84439; 84443; 85025; 87086